=== PATIENT | male | born 1935 ===

== ENCOUNTER 2017-02-13 09:18 | Inpatient (IN) | payer MEDICARE ==
[2017-02-13 09:18] VITALS: BMI 26.4
[2017-02-13] MEDS ORDERED: Albuterol-Ipratrop 3 mg / 0.5 (3 ml) UD ONE ×2 (09:27)
[2017-02-13] MEDS ORDERED: Albuterol-Ipratrop 3 mg / 0.5 (3 ml) UD INH STA (09:36)
[2017-02-13 09:50] LABS: VENOUS BLOOD GAS BASE EXCESS -2.7 mmol/L (0.0-2.0); VENOUS BLOOD GAS PCO2 62 mmHg (40-60); VENOUS BLOOD PH 7.23 (7.32-7.43)
[2017-02-13 10:15] LABS: BASO % 0.2 % (0.0-2.0); EOS % 0.1 % (0.0-4.0); LYMPH # 0.7 K/uL (1.0-4.3); LYMPH % 5.2 % (20.0-40.0); MEAN CORPUSCULAR HEMOGLOBIN 30.7 pg (27.0-31.0); MEAN CORPUSCULAR HGB CONC 31.6 g/dL (33.0-37.0); MEAN PLATELET VOLUME 10.6 fl (7.2-11.7); MONO # 1.1 K/uL (0.0-0.8); MONO % 7.6 % (0.0-10.0); NEUT % 86.9 % (50.0-75.0); PLATELET COUNT 167 K/uL (130-400); RED CELL DISTRIBUTION WIDTH 14.3 % (11.5-14.5)
[2017-02-13 10:24] LABS: BILIRUBIN,TOTAL 0.2 mg/dl (0.2-1.3); CALCIUM 8.2 mg/dL (8.4-10.2); POTASSIUM 4.4 MMOL/L (3.6-5.0); TOTAL PROTEIN 6.7 G/DL (6.3-8.2)
--- NOTE | 2017-02-13 10:27 | ED PDOC ---
HPI: SOB/CHF/COPD Time Seen by Provider: 02/13/17 09:26 Chief Complaint (Nursing): Shortness Of Breath Chief Complaint (Provider): hypoglycemia History Per: Patient History/Exam Limitations: no limitations Onset/Duration Of Symptoms: Mins (prior to arrival) Current Symptoms Are (Timing): Still Present Current Respiratory Medications: See Home Med List Severity: Moderate Associated Symptoms: Other (shortness of breath) Additional Complaint(s): 81 year old male patient with a pertinent medical history of NIDDM, COPD, and asthma presents to the ED with complaints of hypoglycemia. He had an accucheck ( at his skilled nursing) prior to arrival (glucose at 37). He was given glucagon, no change, then D50, his glucose level went up to the 200's. He also has complaints of shortness of breath and is currently being treated with avelox for pneumonia. He denies having any other complaints. PMD: Patient does not recall. Past Medical History Reviewed: Historical Data, Nursing Documentation, Vital Signs Vital Signs: Last Vital Signs Temp 98.7 F 02/13/17 11:31 Pulse 84 02/13/17 14:03 Resp 20 02/13/17 14:03 BP 118/67 02/13/17 14:03 Pulse Ox 98 02/13/17 14:03 - Medical History PMH: Asthma, COPD, CVA, Diabetes, Gall Bladder Disease, HTN, Hypercholesterolemia Denies: HIV, Chronic Kidney Disease - Surgical History Surgical History: Appendectomy, CABG, Cholecystectomy - Family History Family History: States: Unknown Family Hx - Immunization History Hx Tetanus Toxoid Vaccination: No Hx Influenza Vaccination: Yes Hx Pneumococcal Vaccination: No - Home Medications Home Medications: Ambulatory Orders Medication Instructions Recorded Clopidogrel [Plavix] 75 mg PO DAILY 06/07/15 Insulin Glargine, Recombina 25 unit SC HS 01/16/16 [Lantus] Aspirin [Ecotrin] 81 mg PO DAILY 01/17/16 Fluticasone/Salmeterol 100/50 1 puff IH Q12H 01/17/16 [Advair Diskus 100/50] Metoprolol Tartrate [Lopressor] 100 mg PO DAILY 01/17/16 Pravastatin Sodium [Pravachol] 80 mg PO HS 01/17/16 Lisinopril [Zestril] 10 mg PO DAILY tab 01/27/17 Nateglinide [Starlix] 120 mg PO TIDAC tab 01/27/17 amLODIPine [Norvasc] 5 mg PO DAILY tab 01/27/17 Albuterol/Ipratropium [Duoneb 3 3 ml NEB Q6 PRN 02/13/17 mg/0.5 mg (3 ml) UD] Enoxaparin [Lovenox] 40 mg SC DAILY 02/13/17 Moxifloxacin IV 400mg/250ml NS 400 mg IVPB DAILY 02/13/17 [Avelox IV 400mg/250ml NS] - Allergies Allergies/Adverse Reactions: Allergies Allergy/AdvReac Type Severity Reaction Status Date / Time No Known Allergies Allergy Verified 02/13/17 09:28 Curb-65 Severity Score - CURB-65 Severity Score Confusion: No Bun >19mg/dl (>7mmol/L): Yes Respiratory Rate greater than/equal to 30: No Systolic BP <90 or Diastolic BP less than/equal 60mmHg: No Age >64: Yes Curb-65 Score: 2 Percentage 30-day mortality: 6.8% Review of Systems ROS Statement: Except As Marked, All Systems Reviewed And Found Negative Respiratory: Positive for: Shortness of Breath Physical Exam - Reviewed Nursing Documentation Reviewed: Yes Vital Signs Reviewed: Yes - Physical Exam Appears: Positive for: Well, Non-toxic, In Acute Distress (mild respiratory distress) Head Exam: Positive for: ATRAUMATIC, NORMOCEPHALIC Skin: Positive for: Normal Color Eye Exam: Positive for: Normal appearance Cardiovascular/Chest: Positive for: Murmur Respiratory: Positive for: Wheezing (bilaterally), Respiratory Distress (mild) Neurologic/Psych: Positive for: Alert, Oriented (3x) - Laboratory Results Result Diagrams: 02/13/17 09:50 02/13/17 09:50 - ECG Interpretation Of ECG: SR @ 82, PVC. O2 Sat by Pulse Oximetry: 96 (RA) Pulse Ox Interpretation: Normal - Radiology X-Ray: Interpreted by Pa X-Ray Interpretation: Infiltrates (RLL) Nebulizer Treatments/Peak Flow - Duonebs Number of Bronchodilator Doses given?: 1 - Pre/Post Peak Flow Pre Treatment Peak Flow: 1 Post treatment Peak Flow: 1 - Steroid Treatment Steroid: IV (solumedrol 125mg) Medical Decision Making Medical Decision Makin:26 initial impression: 81 year old male with COPD, NIDDM, and asthma has hypoglacemia and shortness of breath. Differential diagnoses include but are not limited to pneumonia, hypoglycemia, and COPD exacerbation. Initial plan: * XRay chest portable * VBG * CMP * udip * CBC with differential * PTT coag * prothrombin time * duoneb 3ml INH * solumedrol 125mg IVP * bood culture * urine culture * accucheck * peak flow peak post treatment * urinalysis * reevaluation Pt ate meal tray. Scribe Attestation: Documented by Camryn Rowley, acting as a scribe for Xin Flores MD. Provider Scribe Attestation: All medical record entries made by the Scribe were at my direction and personally dictated by me. I have reviewed the chart and agree that the record accurately reflects my personal performance of the history, physical exam, medical decision making, and the department course for this patient. I have also personally directed, reviewed, and agree with the discharge instructions and disposition. Disposition - Clinical Impression Clinical Impression: Pneumonia, Hypoglycemia - Patient ED Disposition Is Patient to be Admitted: Yes - Disposition Disposition Time: 12:34 Condition: STABLE - Pt Status Changed To: Hospital Disposition Of: Inpatient - Admit Certification Admit to Inpatient:: After my assessment, the patient will require hospitalization for at least two midnights. This is because of the severity of symptoms shown, intensity of services needed, and/or the medical risk in this patient being treated as an outpatient. - POA Present On Arrival: Poor Glycemic Control
[2017-02-13 10:30] LABS: WHITE BLOOD COUNT 13.8 K/uL (4.8-10.8)
[2017-02-13 10:36] LABS: PARTIAL THROMBOPLASTIN TIME 29.4 SECONDS (23.3-32.5)
[2017-02-13 10:49] LABS: RBC URINE < 1 /hpf (0-3); URINE BACTERIA RARE (<OCC); URINE BILIRUBIN NEGATIVE (NEGATIVE); URINE BLOOD NEGATIVE (NEGATIVE); URINE COLOR YELLOW (YELLOW); URINE GLUCOSE (UA) 150 mg/dL (Normal); URINE KETONE NEGATIVE (NEGATIVE); URINE LEUKOCYTE ESTERASE NEG Leu/uL (Negative); URINE PROTEIN >=500 mg/dL (NEGATIVE); URINE UROBILINOGEN 0.2-1.0 mg/dL (0.2-1.0); WBC URINE 1 /hpf (0-5)
[2017-02-13 11:33] LABS: NEUTROPHIL 86 % (42-75); TOTAL CELLS COUNTED 100
[2017-02-13 11:34] LABS: LARGE PLATELETS PRESENT
[2017-02-13] MEDS ORDERED: Azithromycin 500 MG in Sodium Chloride 0.9% 250 ML IV STA (12:33)
[2017-02-13] MEDS ORDERED: cefTRIAXone (Rocephin) 1 gm Inj ONE (12:35)
--- NOTE | 2017-02-13 13:21 | RAD ---
HISTORY: SOB COMPARISON: 01/24/2017 FINDINGS: LUNGS: Small right lower lobe infiltrate. PLEURA: No significant pleural effusion identified, no pneumothorax apparent. CARDIOVASCULAR: Normal. OSSEOUS STRUCTURES: No significant abnormalities. VISUALIZED UPPER ABDOMEN: Normal. OTHER FINDINGS: None. IMPRESSION: Small right lower lobe infiltrate.
[2017-02-13] MEDS ORDERED: Albuterol-Ipratrop 3 mg / 0.5 (3 ml) UD INH PRN (16:53)
[2017-02-13] MEDS: Insulin Lispro (humaLOG) 100 Units/ml Inj SC SCH ×2 (18:33→21:45)
[2017-02-13] MEDS: Insulin Detemir 100 Units/ml Inj SC SCH (21:44)
[2017-02-13] MEDS: Fluticasone-Salmeterol 100-50mcg Diskus IH SCH (23:05)
--- NOTE | 2017-02-14 00:17 | CP.PCM.HP ---
History of Present Illness - History of Present Illness History of Present Illness: CC: SOB History of Present Illness: 81 year old male patient with a pertinent medical history of NIDDM, COPD, and asthma presents to the ED with complaints of Hypoglycemia. He had an accu-check (at his senior care) prior to arrival (glucose at 37). He was given Glucagon, no change, then D50, his glucose level went up to the 200's. He also has complaints of shortness of breath and is currently being treated with Avelox for pneumonia. He denies having any other complaints. Present on Admission - Present on Admission Any Indicators Present on Admission: Yes History of DVT/PE: No History of Uncontrolled Diabetes: Yes Urinary Catheter: No Decubitus Ulcer Present: No Review of Systems - Review of Systems All systems: reviewed and no additional remarkable complaints except Past Patient History - Infectious Disease Hx of Infectious Diseases: None - Past Medical History & Family History Past Medical History?: Yes Past Family History: Reviewed and not pertinent - Past Social History Smoking Status: Former Smoker Alcohol: None Drugs: Denies - CARDIAC Hx Hypercholesterolemia: Yes Hx Hypertension: Yes - PULMONARY Hx Asthma: Yes Hx Chronic Obstructive Pulmonary Disease (COPD): Yes - NEUROLOGICAL Hx Transient Ischemic Attacks (TIA): Yes - HEENT Hx HEENT Problems: Yes Hx Glaucoma: Yes (HAD CORRECTIVE SX) - RENAL Hx Chronic Kidney Disease: No - ENDOCRINE/METABOLIC Hx Endocrine Disorders: Yes Hx Diabetes Mellitus Type 2: Yes - HEMATOLOGICAL/ONCOLOGICAL Hx Human Immunodeficiency Virus (HIV): No - INTEGUMENTARY Hx Dermatological Problems: No - MUSCULOSKELETAL/RHEUMATOLOGICAL Hx Musculoskeletal Disorders: Yes Hx Falls: No - GASTROINTESTINAL Hx Gall Bladder Disease: Yes - GENITOURINARY/GYNECOLOGICAL Hx Genitourinary Disorders: No - PSYCHIATRIC Hx Psychophysiologic Disorder: No Hx Substance Use: No - SURGICAL HISTORY Hx Appendectomy: Yes Hx Cholecystectomy: Yes Hx Coronary Artery Bypass Graft: Yes Hx Joint Replacement: Yes - ANESTHESIA Hx Anesthesia: Yes Hx Anesthesia Reactions: No Hx Malignant Hyperthermia: No Meds Allergies/Adverse Reactions: Allergies Allergy/AdvReac Type Severity Reaction Status Date / Time No Known Allergies Allergy Verified 02/13/17 09:28 Physical Exam - Constitutional Appears: Well - Head Exam Head Exam: ATRAUMATIC, NORMAL INSPECTION, NORMOCEPHALIC - Eye Exam Eye Exam: EOMI, Normal appearance, PERRL Pupil Exam: NORMAL ACCOMODATION, PERRL - ENT Exam ENT Exam: Mucous Membranes Moist, Normal Exam - Neck Exam Neck exam: Positive for: Normal Inspection - Respiratory Exam Respiratory Exam: Clear to Auscultation Bilateral, NORMAL BREATHING PATTERN - Cardiovascular Exam Cardiovascular Exam: REGULAR RHYTHM - GI/Abdominal Exam GI & Abdominal Exam: Normal Bowel Sounds, Soft. absent: Tenderness - Rectal Exam Rectal Exam: NORMAL INSPECTION - Exam Exam: Circumcision, NORMAL INSPECTION External exam: NORMAL EXTERNAL EXAM Speculum exam: NORMAL SPECULUM EXAM Bimanual exam: NORMAL BIMANUAL EXAM - Extremities Exam Extremities exam: Positive for: normal inspection - Back Exam Back exam: NORMAL INSPECTION - Neurological Exam Neurological exam: Alert, CN II-XII Intact, Normal Gait, Oriented x3, Reflexes Normal - Psychiatric Exam Psychiatric exam: Normal Affect, Normal Mood - Skin Skin Exam: Dry, Intact, Normal Color, Warm Results - Vital Signs Recent Vital Signs: Last Vital Signs Temp 97.3 F L 02/13/17 15:50 Pulse 80 02/13/17 21:00 Resp 20 02/13/17 15:50 BP 145/75 02/13/17 15:50 Pulse Ox 93 L 02/13/17 15:50 - Labs Result Diagrams: 02/17/17 06:35 02/17/17 06:35 - Imaging and Cardiology Chest x-ray Status: Report reviewed by me Additional comment: Right Sided Pneumonia IVF IV Rocephin and IV Zithromax Blood Culture and Sen Sputum GS and C/S ID Consult Assessment & Plan (1) CAD (coronary artery disease) Status: Acute Priority: High (2) Pneumonia Assessment and Plan: Right Sided PNA IVF IV Rocephin/Zithromax Blood and sputum Cultures Tylenol prn ID Consult Status: Acute Priority: High (3) Hypoglycemia Assessment and Plan: IVF with D5NS Adjust DM Medication Monitor ACcucheck Status: Acute Priority: High (4) Diabetes 1.5, managed as type 2 Status: Acute
[2017-02-14] MEDS: Fluticasone-Salmeterol 100-50mcg Diskus IH SCH ×2 (05:00→16:33)
[2017-02-14] MEDS: Insulin Lispro (humaLOG) 100 Units/ml Inj SC SCH ×4 (06:52→21:42)
[2017-02-14] MEDS: Azithromycin 500 MG in Sodium Chloride 0.9% 250 ML IVPB SCH (08:53)
[2017-02-14 08:56] LABS: LYMPH # 0.6 K/uL (1.0-4.3); LYMPH % 9.3 % (20.0-40.0); MEAN CELL VOLUME 95.4 fl (80.0-94.0); MEAN CORPUSCULAR HEMOGLOBIN 31.4 pg (27.0-31.0); MEAN CORPUSCULAR HGB CONC 32.9 g/dL (33.0-37.0); MEAN PLATELET VOLUME 9.8 fl (7.2-11.7); MONO # 0.9 K/uL (0.0-0.8); MONO % 13.2 % (0.0-10.0); NEUT # 5.4 K/uL (1.8-7.0); NEUT % 77.5 % (50.0-75.0); NRBC % 0.1 % (0.0-0.0); RED CELL DISTRIBUTION WIDTH 14.3 % (11.5-14.5); WHITE BLOOD COUNT 6.9 K/uL (4.8-10.8)
[2017-02-14] MEDS ORDERED: cefTRIAXone (Rocephin) 2 gm Inj IVPB SCH (09:00)
[2017-02-14] MEDS ORDERED: Enoxaparin 40 mg Syringe SC SCH (09:00)
[2017-02-14 09:10] LABS: CALCIUM 8.9 mg/dL (8.4-10.2); POTASSIUM 5.3 MMOL/L (3.6-5.0)
[2017-02-14] MEDS ORDERED: Sod Polystyrene Sulf 15 gm/60 ml Oral Susp PO ONE (11:30)
[2017-02-14] MEDS ORDERED: Sodium Chloride 0.45% 1,000 ML IV SCH (11:45)
[2017-02-14] MEDS ORDERED: Sodium Chloride 3% for Inhalation 4 ML VIAL.NEB IH PRN (15:44)
--- NOTE | 2017-02-14 15:44 | CP.PCM.CON ---
History of Present Illness - History of Present Illness History of Present Illness: 81 year old male patient with a pertinent medical history of NIDDM, COPD, and asthma presents to the ED with complaints of hypoglycemia. He had an accucheck ( at his custodial) prior to arrival (glucose at 37). He was given glucagon, no change, then D50, his glucose level went up to the 200's. He also has complaints of shortness of breath and is currently being treated with avelox for pneumonia. He denies having any other complaints. - Medical History PMH: Asthma, COPD, CVA, Diabetes, Gall Bladder Disease, HTN, Hypercholesterolemia Denies: HIV, Chronic Kidney Disease Review of Systems - Constitutional Constitutional: As Per HPI - EENT Eyes: absent: As Per HPI, Blind Spots, Blurred Vision, Change in Vision, Decreased Night Vision, Diplopia, Discharge, Dry Eye, Exophthalmos, Floaters, Irritation, Itchy Eyes, Loss of Peripheral Vision, Pain, Photophobia, Requires Corrective Lenses, Sees Flashes, Spots in Vision, Tunnel Vision, Other Visual Disturbances, Loss of Vision, Other Ears: absent: As Per HPI, Decreased Hearing, Ear Discharge, Ear Pain, Tinnitus, Abnormal Hearing, Disequilibrium, Dizziness, Other Nose/Mouth/Throat: absent: As Per HPI, Epistaxis, Nasal Congestion, Nasal Discharge, Nasal Obstruction, Nasal Trauma, Nose Pain, Post Nasal Drip, Sinus Pain, Sinus Pressure, Bleeding Gums, Change in Voice, Dental Pain, Dry Mouth, Dysphagia, Halitosis, Hoarsness, Lip Swelling, Mouth Lesions, Mouth Pain, Odynophagia, Sore Throat, Throat Swelling, Tongue Swelling, Facial Pain, Neck Pain, Neck Mass, Other - Cardiovascular Cardiovascular: absent: As Per HPI, Acrocyanosis, Chest Pain, Chest Pain at Rest , Chest Pain with Activity, Claudication, Diaphoresis, Dyspnea, Dyspnea on Exertion, Edema, Irregular Heart Rhythm, Pain Radiating to Arm/Neck/Jaw, Leg Edema, Leg Ulcers, Lightheadedness, Orthopnea, Palpitations, Paroxysmal Nocturnal Dyspnea, Pedal Edema, Radiating Pain, Rapid Heart Rate, Slow Heart Rate, Syncope, Other - Respiratory Respiratory: absent: As Per HPI, Cough, Dyspnea, Hemoptysis, Dyspnea on Exertion , Wheezing, Snoring, Stridor, Pain on Inspiration, Chest Congestion, Excessive Mucous Production, Change in Mucous Color, Pain with Coughing, Other - Gastrointestinal Gastrointestinal: absent: As Per HPI, Abdominal Pain, Belching, Bloating, Change in Bowel Habits, Change in Stool Character, Coffee Ground Emesis, Constipation, Cramping, Diarrhea, Dyspepsia, Dysphagia, Early Satiety, Excessive Flatus, Fecal Incontinence, Heartburn, Hematemesis, Hematochezia, Loose Stools, Melena, Nausea, Odynophagia, Temesmus, Vomiting, Other - Genitourinary Genitourinary: absent: As Per HPI, Change in Urinary Stream, Difficulty Urinating, Dysuria, Flank Pain, Hematuria, Pyuria, Nocturia, Urinary Incontinence, Urinary Frequency, Urinary Hesitance, Urinary Urgency, Voiding Freq/Small Amts, Freq UTI, Hx Renal/Bladder Calculi, Hx /Renal Surgery, Bladder Distension, Other - Musculoskeletal Musculoskeletal: absent: As Per HPI, Abnormal Gait, Arthralgias, Atrophy, Back Pain, Deformity, Joint Swelling, Limited Range of Motion, Loss of Height, Muscle Cramps, Muscle Weakness, Myalgias, Neck Pain, Numbness, Radiating Pain into Limb, Stiffness, Tingling, Other - Integumentary Integumentary: absent: As Per HPI, Acne, Alopecia, Bleeding Lesions, Change in Hair, Change in Nails, Change in Pigmentation, Changing Lesions, Dry Skin, Erythema, Furuncle, Hirsutism, Lesions, New Lesions, Non-Healing Lesions, Photosensitivity, Pruritus, Rash, Skin Pain, Skin Ulcer, Sores, Striae, Swelling , Unusual Bruising, Wounds, Jaundice, Other - Neurological Neurological: absent: As Per HPI, Abnormal Gait, Abnormal Hearing, Abnormal Movements, Abnormal Speech, Behavioral Changes, Burning Sensations, Confusion, Convulsions, Disequilibrium, Dizziness, Numbness, Focal Weakness, Frequent Falls , Headaches, Lack of Coordination, Loss of Vision, Memory Loss, Paresthesias, Radicular Pain, Restless Legs, Sensory Deficit, Syncope, Tingling, Tremor, Vertigo, Weakness, Other Visual Disturbances, Other - Psychiatric Psychiatric: absent: As Per HPI, Abnormal Sleep Pattern, Anhedonia, Anxiety, Auditory Hallucinations, Behavioral Changes, Change in Appetite, Change in Libido, Confusion, Depression, Difficulty Concentrating, Hallucinations, Homicidal Ideation, Hopelessness, Irritability, Memory Loss, Mood Swings, Panic Attacks, Paranoia, Suicidal Ideation, Visual Hallucinations, Tactile Hallucinations, Other - Endocrine Endocrine: absent: As Per HPI, Change in Body Appearance, Change in Libido, Cold Intolorance, Deepening of Voice, Excessive Sweating, Fatigue, Flushing, Heat Intolorance, Increase in Ring/Shoe/Hat Size, Palpitations, Polydipsia, Polyphagia, Polyuria, Other - Hematologic/Lymphatic Hematologic: absent: As Per HPI, Easy Bleeding, Easy Bruising, Lymphadenopathy, Other Past Patient History - Infectious Disease Hx of Infectious Diseases: None - Past Medical History & Family History Past Medical History?: Yes - Past Social History Smoking Status: Former Smoker - CARDIAC Hx Hypercholesterolemia: Yes Hx Hypertension: Yes - PULMONARY Hx Asthma: Yes Hx Chronic Obstructive Pulmonary Disease (COPD): Yes - NEUROLOGICAL Hx Transient Ischemic Attacks (TIA): Yes - HEENT Hx HEENT Problems: Yes Hx Glaucoma: Yes (HAD CORRECTIVE SX) - RENAL Hx Chronic Kidney Disease: No - ENDOCRINE/METABOLIC Hx Endocrine Disorders: Yes Hx Diabetes Mellitus Type 2: Yes - HEMATOLOGICAL/ONCOLOGICAL Hx Human Immunodeficiency Virus (HIV): No - INTEGUMENTARY Hx Dermatological Problems: No - MUSCULOSKELETAL/RHEUMATOLOGICAL Hx Musculoskeletal Disorders: Yes Hx Falls: No - GASTROINTESTINAL Hx Gall Bladder Disease: Yes - GENITOURINARY/GYNECOLOGICAL Hx Genitourinary Disorders: No - PSYCHIATRIC Hx Psychophysiologic Disorder: No Hx Substance Use: No - SURGICAL HISTORY Hx Appendectomy: Yes Hx Cholecystectomy: Yes Hx Coronary Artery Bypass Graft: Yes Hx Joint Replacement: Yes - ANESTHESIA Hx Anesthesia: Yes Hx Anesthesia Reactions: No Hx Malignant Hyperthermia: No Meds Allergies/Adverse Reactions: Allergies Allergy/AdvReac Type Severity Reaction Status Date / Time No Known Allergies Allergy Verified 02/13/17 09:28 - Medications Medications: Current Medications Albuterol/Ipratropium (Duoneb 3 Mg/0.5 Mg (3 Ml) Ud) 3 ml INH Q6 PRN PRN Reason: Shortness of Breath Amlodipine Besylate (Norvasc) 5 mg PO DAILY [facility] Last Admin: 02/14/17 08:51 Dose: 5 mg Aspirin (Ecotrin) 81 mg PO DAILY [facility] Last Admin: 02/14/17 08:50 Dose: 81 mg Atorvastatin Calcium (Lipitor) 20 mg PO HS [facility] Last Admin: 02/13/17 21:46 Dose: 20 mg Clopidogrel Bisulfate (Plavix) 75 mg PO DAILY [facility] Last Admin: 02/14/17 08:51 Dose: 75 mg Heparin Sodium (Porcine) (Heparin) 5,000 units SC Q8 [facility] PRN Reason: Protocol Last Admin: 02/14/17 08:53 Dose: 5,000 units Azithromycin 500 mg/ Sodium (Chloride) 250 mls @ 250 mls/hr IVPB DAILY [facility] Last Admin: 02/14/17 08:53 Dose: 250 mls/hr Sodium Chloride (Sodium Chloride 0.45%) 1,000 mls @ 100 mls/hr IV .Q10H [facility] Stop: 02/15/17 11:46 Last Admin: 02/14/17 11:49 Dose: 100 mls/hr Insulin Detemir (Levemir) 20 units SC HS [facility] Last Admin: 02/13/17 21:44 Dose: 20 unit Insulin Human Lispro (Humalog) 0 units SC ACHS [facility] PRN Reason: Protocol Last Admin: 02/14/17 11:55 Dose: Not Given Lisinopril (Zestril) 10 mg PO DAILY [facility] Last Admin: 02/14/17 08:51 Dose: 10 mg Metoprolol Tartrate (Lopressor) 100 mg PO DAILY [facility] Last Admin: 02/14/17 08:50 Dose: 100 mg Fluticasone/Salmeterol (Advair Diskus 100/50) 1 puff IH Q12H [facility] Last Admin: 02/14/17 05:00 Dose: Not Given Physical Exam - Constitutional Appears: Non-toxic, Cachectic, Chronically Ill - Head Exam Head Exam: ATRAUMATIC, NORMAL INSPECTION, NORMOCEPHALIC - Eye Exam Eye Exam: PERRL. absent: Scleral icterus - ENT Exam ENT Exam: Mucous Membranes Dry, Normal External Ear Exam, Normal Oropharynx - Neck Exam Neck exam: Negative for: Lymphadenopathy, Thyromegaly - Respiratory Exam Respiratory Exam: Decreased Breath Sounds, Rhonchi - Cardiovascular Exam Cardiovascular Exam: REGULAR RHYTHM, +S1, +S2 - GI/Abdominal Exam GI & Abdominal Exam: Diminished Bowel Sounds, Soft. absent: Tenderness - Rectal Exam Rectal Exam: Deferred - Exam Exam: NORMAL INSPECTION - Extremities Exam Extremities exam: Negative for: pedal edema - Back Exam Back exam: absent: CVA tenderness (L), CVA tenderness (R) - Neurological Exam Neurological exam: Alert, CN II-XII Intact, Oriented x3, Reflexes Normal - Psychiatric Exam Psychiatric exam: Normal Mood - Skin Skin Exam: Dry Results - Vital Signs Recent Vital Signs: Last Vital Signs Temp 97.4 F L 02/14/17 15:31 Pulse 62 02/14/17 15:31 Resp 20 02/14/17 15:31 BP 147/76 02/14/17 15:31 Pulse Ox 99 02/14/17 15:31 - Labs Result Diagrams: 02/14/17 06:20 02/14/17 06:20 Labs: Laboratory Results - last 24 hr 02/14/17 06:20 WBC 6.9 RBC 3.88 L Hgb 12.2 Hct 37.0 MCV 95.4 H MCH 31.4 H MCHC 32.9 L RDW 14.3 Plt Count 174 MPV 9.8 Neut % (Auto) 77.5 H Lymph % (Auto) 9.3 L Sully % (Auto) 13.2 H Eos % (Auto) 0.0 Baso % (Auto) 0.0 Neut # 5.4 Lymph # 0.6 L Sully # 0.9 H Eos # 0.0 Baso # 0.0 Sodium 144 Potassium 5.3 H Chloride 106 Carbon Dioxide 22 Anion Gap 21 H BUN 57 H Creatinine 2.2 H Est GFR ( Amer) 35 Est GFR (Non-Af Amer) 29 Random Glucose 72 L Calcium 8.9 Assessment & Plan (1) Altered mental status Status: Acute Priority: High (2) CAD (coronary artery disease) Status: Acute Priority: High (3) Hypoglycemia Status: Acute Priority: High (4) Pneumonia Status: Acute Priority: High (5) Chronic systolic dysfunction of left ventricle Status: Acute (6) Dehydration Status: Acute (7) Sepsis Status: Acute (8) Atelectasis Status: Acute - Assessment and Plan (Free Text) Assessment: await cultures cont iv rx
[2017-02-14] MEDS: Insulin Detemir 100 Units/ml Inj SC SCH (21:40)
--- NOTE | 2017-02-14 22:49 | CP.PCM.PN ---
Subjective - Date & Time of Evaluation Date of Evaluation: 02/14/17 Time of Evaluation: 17:55 Objective - Vital Signs/Intake and Output Vital Signs (last 24 hours): Temp Pulse Resp BP Pulse Ox 97.8 F 65 18 125/72 97 02/14/17 17:00 02/14/17 20:53 02/14/17 17:00 02/14/17 17:00 02/14/17 17:00 - Medications Medications: Current Medications Albuterol/Ipratropium (Duoneb 3 Mg/0.5 Mg (3 Ml) Ud) 3 ml INH Q6 PRN PRN Reason: Shortness of Breath Amlodipine Besylate (Norvasc) 5 mg PO DAILY [facility] Last Admin: 02/14/17 08:51 Dose: 5 mg Aspirin (Ecotrin) 81 mg PO DAILY [facility] Last Admin: 02/14/17 08:50 Dose: 81 mg Atorvastatin Calcium (Lipitor) 20 mg PO HS [facility] Last Admin: 02/14/17 21:40 Dose: 20 mg Clopidogrel Bisulfate (Plavix) 75 mg PO DAILY [facility] Last Admin: 02/14/17 08:51 Dose: 75 mg Heparin Sodium (Porcine) (Heparin) 5,000 units SC Q8 [facility] PRN Reason: Protocol Last Admin: 02/14/17 16:34 Dose: 5,000 units Azithromycin 500 mg/ Sodium (Chloride) 250 mls @ 250 mls/hr IVPB DAILY [facility] Last Admin: 02/14/17 08:53 Dose: 250 mls/hr Insulin Detemir (Levemir) 20 units SC HS [facility] Last Admin: 02/14/17 21:40 Dose: 20 unit Insulin Human Lispro (Humalog) 0 units SC ACHS [facility] PRN Reason: Protocol Last Admin: 02/14/17 21:42 Dose: Not Given Lisinopril (Zestril) 10 mg PO DAILY [facility] Last Admin: 02/14/17 08:51 Dose: 10 mg Metoprolol Tartrate (Lopressor) 100 mg PO DAILY [facility] Last Admin: 02/14/17 08:50 Dose: 100 mg Fluticasone/Salmeterol (Advair Diskus 100/50) 1 puff IH Q12H [facility] Last Admin: 02/14/17 16:33 Dose: 1 puff - Labs Labs: 02/14/17 06:20 02/14/17 06:20 PT 10.9 SECONDS (9.6-11.2) 02/13/17 09:50 INR 1.05 (0.92-1.08) 02/13/17 09:50 APTT 29.4 SECONDS (23.3-32.5) 02/13/17 09:50 Assessment and Plan (1) CAD (coronary artery disease) Status: Acute (2) Pneumonia Status: Acute (3) Hypoglycemia Status: Acute (4) Diabetes 1.5, managed as type 2 Status: Acute
[2017-02-15] MEDS: Fluticasone-Salmeterol 100-50mcg Diskus IH SCH ×2 (05:04→17:24)
[2017-02-15] MEDS: Insulin Lispro (humaLOG) 100 Units/ml Inj SC SCH ×4 (08:20→21:30)
[2017-02-15] MEDS: Azithromycin 500 MG in Sodium Chloride 0.9% 250 ML IVPB SCH (09:16)
--- NOTE | 2017-02-15 10:55 | CP.PCM.PN ---
Subjective - Date & Time of Evaluation Date of Evaluation: 02/15/17 Time of Evaluation: 08:00 - Subjective Subjective: less fever less cough less sob Objective - Vital Signs/Intake and Output Vital Signs (last 24 hours): Temp Pulse Resp BP Pulse Ox 97.5 F L 67 20 166/84 H 99 02/15/17 05:23 02/15/17 09:09 02/15/17 05:23 02/15/17 09:09 02/15/17 05:23 - Medications Medications: Current Medications Albuterol/Ipratropium (Duoneb 3 Mg/0.5 Mg (3 Ml) Ud) 3 ml INH Q6 PRN PRN Reason: Shortness of Breath Amlodipine Besylate (Norvasc) 5 mg PO DAILY [facility] Last Admin: 02/15/17 09:09 Dose: 5 mg Aspirin (Ecotrin) 81 mg PO DAILY [facility] Last Admin: 02/15/17 09:09 Dose: 81 mg Atorvastatin Calcium (Lipitor) 20 mg PO HS [facility] Last Admin: 02/14/17 21:40 Dose: 20 mg Clopidogrel Bisulfate (Plavix) 75 mg PO DAILY [facility] Last Admin: 02/15/17 09:10 Dose: 75 mg Heparin Sodium (Porcine) (Heparin) 5,000 units SC Q8 [facility] PRN Reason: Protocol Last Admin: 02/15/17 09:10 Dose: 5,000 units Azithromycin 500 mg/ Sodium (Chloride) 250 mls @ 250 mls/hr IVPB DAILY [facility] Last Admin: 02/15/17 09:16 Dose: 250 mls/hr Insulin Detemir (Levemir) 20 units SC HS [facility] Last Admin: 02/14/17 21:40 Dose: 20 unit Insulin Human Lispro (Humalog) 0 units SC ACHS [facility] PRN Reason: Protocol Last Admin: 02/15/17 08:20 Dose: Not Given Lisinopril (Zestril) 10 mg PO DAILY [facility] Last Admin: 02/15/17 09:08 Dose: 10 mg Metoprolol Tartrate (Lopressor) 100 mg PO DAILY [facility] Last Admin: 02/15/17 09:09 Dose: 100 mg Fluticasone/Salmeterol (Advair Diskus 100/50) 1 puff IH Q12H [facility] Last Admin: 02/15/17 05:04 Dose: 1 puff - Labs Labs: 02/14/17 06:20 02/14/17 06:20 PT 10.9 SECONDS (9.6-11.2) 02/13/17 09:50 INR 1.05 (0.92-1.08) 02/13/17 09:50 APTT 29.4 SECONDS (23.3-32.5) 02/13/17 09:50 - Constitutional Appears: Non-toxic, Cachectic, Chronically Ill - Head Exam Head Exam: ATRAUMATIC, NORMAL INSPECTION, NORMOCEPHALIC - Eye Exam Eye Exam: PERRL. absent: Scleral icterus - ENT Exam ENT Exam: Mucous Membranes Dry, Normal External Ear Exam - Neck Exam Neck Exam: absent: Lymphadenopathy - Respiratory Exam Respiratory Exam: Decreased Breath Sounds, Clear to Ausculation Bilateral - Cardiovascular Exam Cardiovascular Exam: REGULAR RHYTHM, +S1, +S2 - GI/Abdominal Exam GI & Abdominal Exam: Distended, Soft. absent: Tenderness - Rectal Exam Rectal Exam: Deferred - Exam Exam: NORMAL INSPECTION - Extremities Exam Extremities Exam: absent: Calf Tenderness, Pedal Edema - Back Exam Back Exam: absent: CVA tenderness (L), CVA tenderness (R) - Neurological Exam Neurological Exam: Alert, Awake, Oriented x3 Neuro motor strength exam: Left Upper Extremity: 3, Right Upper Extremity: 3, Left Lower Extremity: 3, Right Lower Extremity: 3 - Psychiatric Exam Psychiatric exam: Normal Mood - Skin Skin Exam: Intact Assessment and Plan (1) Altered mental status Status: Acute (2) CAD (coronary artery disease) Status: Acute (3) Hypoglycemia Status: Acute (4) Pneumonia Status: Acute (5) Chronic systolic dysfunction of left ventricle Status: Acute (6) Dehydration Status: Acute (7) Sepsis Status: Acute (8) Atelectasis Status: Acute
[2017-02-15 13:41] LABS: CALCIUM 8.2 mg/dL (8.4-10.2); POTASSIUM 4.2 MMOL/L (3.6-5.0)
[2017-02-15] MEDS: Insulin Detemir 100 Units/ml Inj SC SCH (21:31)
--- NOTE | 2017-02-16 00:32 | CP.PCM.PN ---
Subjective - Date & Time of Evaluation Date of Evaluation: 02/15/17 Time of Evaluation: 16:10 Objective - Vital Signs/Intake and Output Vital Signs (last 24 hours): Temp Pulse Resp BP Pulse Ox 97.4 F L 66 20 135/71 97 02/16/17 00:07 02/16/17 00:07 02/16/17 00:07 02/16/17 00:07 02/16/17 00:07 - Medications Medications: Current Medications Albuterol/Ipratropium (Duoneb 3 Mg/0.5 Mg (3 Ml) Ud) 3 ml INH Q6 PRN PRN Reason: Shortness of Breath Amlodipine Besylate (Norvasc) 5 mg PO DAILY [facility] Last Admin: 02/15/17 09:09 Dose: 5 mg Aspirin (Ecotrin) 81 mg PO DAILY [facility] Last Admin: 02/15/17 09:09 Dose: 81 mg Atorvastatin Calcium (Lipitor) 20 mg PO HS [facility] Last Admin: 02/15/17 21:32 Dose: 20 mg Clopidogrel Bisulfate (Plavix) 75 mg PO DAILY [facility] Last Admin: 02/15/17 09:10 Dose: 75 mg Heparin Sodium (Porcine) (Heparin) 5,000 units SC Q8 [facility] PRN Reason: Protocol Last Admin: 02/15/17 17:23 Dose: 5,000 units Azithromycin 500 mg/ Sodium (Chloride) 250 mls @ 250 mls/hr IVPB DAILY [facility] Last Admin: 02/15/17 09:16 Dose: 250 mls/hr Insulin Detemir (Levemir) 20 units SC HS [facility] Last Admin: 02/15/17 21:31 Dose: 20 unit Insulin Human Lispro (Humalog) 0 units SC ACHS [facility] PRN Reason: Protocol Last Admin: 02/15/17 21:30 Dose: Not Given Lisinopril (Zestril) 10 mg PO DAILY [facility] Last Admin: 02/15/17 09:08 Dose: 10 mg Metoprolol Tartrate (Lopressor) 100 mg PO DAILY [facility] Last Admin: 02/15/17 09:09 Dose: 100 mg Fluticasone/Salmeterol (Advair Diskus 100/50) 1 puff IH Q12H [facility] Last Admin: 02/15/17 17:24 Dose: 1 puff - Labs Labs: 02/14/17 06:20 02/15/17 13:05 PT 10.9 SECONDS (9.6-11.2) 02/13/17 09:50 INR 1.05 (0.92-1.08) 02/13/17 09:50 APTT 29.4 SECONDS (23.3-32.5) 02/13/17 09:50 Assessment and Plan (1) CAD (coronary artery disease) Status: Acute (2) Pneumonia Status: Acute (3) Hypoglycemia Status: Acute (4) Diabetes 1.5, managed as type 2 Status: Acute
[2017-02-16] MEDS: Fluticasone-Salmeterol 100-50mcg Diskus IH SCH ×2 (04:53→16:28)
[2017-02-16] MEDS: Azithromycin 500 MG in Sodium Chloride 0.9% 250 ML IVPB SCH (09:15)
[2017-02-16] MEDS: Insulin Lispro (humaLOG) 100 Units/ml Inj SC SCH ×4 (09:18→22:50)
[2017-02-16] MEDS ORDERED: cefTRIAXone (Rocephin) 2 gm Inj IVPB SCH (11:45)
--- NOTE | 2017-02-16 12:15 | CP.PCM.PN ---
Subjective - Date & Time of Evaluation Date of Evaluation: 02/16/17 Time of Evaluation: 12:30 Objective - Vital Signs/Intake and Output Vital Signs (last 24 hours): Temp Pulse Resp BP Pulse Ox 97.4 F L 70 20 162/87 H 97 02/16/17 08:17 02/16/17 09:17 02/16/17 08:17 02/16/17 09:17 02/16/17 08:17 - Medications Medications: Current Medications Albuterol/Ipratropium (Duoneb 3 Mg/0.5 Mg (3 Ml) Ud) 3 ml INH Q6 PRN PRN Reason: Shortness of Breath Amlodipine Besylate (Norvasc) 5 mg PO DAILY [facility] Last Admin: 02/16/17 09:17 Dose: 5 mg Aspirin (Ecotrin) 81 mg PO DAILY [facility] Last Admin: 02/16/17 09:17 Dose: 81 mg Atorvastatin Calcium (Lipitor) 20 mg PO HS [facility] Last Admin: 02/15/17 21:32 Dose: 20 mg Clopidogrel Bisulfate (Plavix) 75 mg PO DAILY [facility] Last Admin: 02/16/17 09:16 Dose: 75 mg Heparin Sodium (Porcine) (Heparin) 5,000 units SC Q8 [facility] PRN Reason: Protocol Last Admin: 02/16/17 09:17 Dose: 5,000 units Azithromycin 500 mg/ Sodium (Chloride) 250 mls @ 250 mls/hr IVPB DAILY [facility] Last Admin: 02/16/17 09:15 Dose: 250 mls/hr Ceftriaxone Sodium 1 gm/ (Sodium Chloride) 100 mls @ 100 mls/hr IVPB DAILY [facility] Insulin Detemir (Levemir) 20 units SC HS [facility] Last Admin: 02/15/17 21:31 Dose: 20 unit Insulin Human Lispro (Humalog) 0 units SC ACHS [facility] PRN Reason: Protocol Last Admin: 02/16/17 11:19 Dose: 4 unit Lisinopril (Zestril) 10 mg PO DAILY [facility] Last Admin: 02/16/17 09:16 Dose: 10 mg Metoprolol Tartrate (Lopressor) 100 mg PO DAILY [facility] Last Admin: 02/16/17 09:17 Dose: 100 mg Fluticasone/Salmeterol (Advair Diskus 100/50) 1 puff IH Q12H [facility] Last Admin: 02/16/17 04:53 Dose: 1 puff - Labs Labs: 02/14/17 06:20 02/15/17 13:05 PT 10.9 SECONDS (9.6-11.2) 02/13/17 09:50 INR 1.05 (0.92-1.08) 02/13/17 09:50 APTT 29.4 SECONDS (23.3-32.5) 02/13/17 09:50 Assessment and Plan (1) CAD (coronary artery disease) Status: Acute (2) Pneumonia Status: Acute (3) Hypoglycemia Status: Acute (4) Diabetes 1.5, managed as type 2 Status: Acute
[2017-02-16] MEDS ORDERED: Dextrose 50% SYRINGE Inj (50 ml) ONE (14:02)
[2017-02-16] MEDS ORDERED: Dextrose 50% SYRINGE Inj (50 ml) IVP ONE (14:21)
--- NOTE | 2017-02-16 15:31 | CP.PCM.CON ---
History of Present Illness - History of Present Illness History of Present Illness: 81 year old male w/ PMH CKD III, HTN, DM that presented to the hospital w/ episodes of hypoglycemia two days ago. He was also found to have pneumonia and was started on abx. His cr was found to be about 2.2. His cr has been at this level for the past several months and progressively getting worth over the past several months. He has a known history of diabetes. I was unable to get any further answers from the pt as when I came in he was very altered and had alerted RN and was found to be significantly hypoglycemic. ROS: unable to obtain as pt is altered . all: nkda sochx: unable to obtain pt altered famhx: unable to obtain as pt altered Past Patient History - Infectious Disease Hx of Infectious Diseases: None - Past Medical History & Family History Past Medical History?: Yes - Past Social History Smoking Status: Former Smoker - CARDIAC Hx Hypercholesterolemia: Yes Hx Hypertension: Yes - PULMONARY Hx Asthma: Yes Hx Chronic Obstructive Pulmonary Disease (COPD): Yes - NEUROLOGICAL Hx Transient Ischemic Attacks (TIA): Yes - HEENT Hx HEENT Problems: Yes Hx Glaucoma: Yes (HAD CORRECTIVE SX) - RENAL Hx Chronic Kidney Disease: Yes - ENDOCRINE/METABOLIC Hx Endocrine Disorders: Yes Hx Diabetes Mellitus Type 2: Yes - HEMATOLOGICAL/ONCOLOGICAL Hx Human Immunodeficiency Virus (HIV): No - INTEGUMENTARY Hx Dermatological Problems: No - MUSCULOSKELETAL/RHEUMATOLOGICAL Hx Musculoskeletal Disorders: Yes Hx Falls: No - GASTROINTESTINAL Hx Gall Bladder Disease: Yes - GENITOURINARY/GYNECOLOGICAL Hx Genitourinary Disorders: No - PSYCHIATRIC Hx Psychophysiologic Disorder: No Hx Substance Use: No - SURGICAL HISTORY Hx Appendectomy: Yes Hx Cholecystectomy: Yes Hx Coronary Artery Bypass Graft: Yes Hx Joint Replacement: Yes - ANESTHESIA Hx Anesthesia: Yes Hx Anesthesia Reactions: No Hx Malignant Hyperthermia: No Meds Allergies/Adverse Reactions: Allergies Allergy/AdvReac Type Severity Reaction Status Date / Time No Known Allergies Allergy Verified 02/13/17 09:28 - Medications Medications: Current Medications Albuterol/Ipratropium (Duoneb 3 Mg/0.5 Mg (3 Ml) Ud) 3 ml INH Q6 PRN PRN Reason: Shortness of Breath Amlodipine Besylate (Norvasc) 5 mg PO DAILY [facility] Last Admin: 02/16/17 09:17 Dose: 5 mg Aspirin (Ecotrin) 81 mg PO DAILY [facility] Last Admin: 02/16/17 09:17 Dose: 81 mg Atorvastatin Calcium (Lipitor) 20 mg PO HS [facility] Last Admin: 02/15/17 21:32 Dose: 20 mg Clopidogrel Bisulfate (Plavix) 75 mg PO DAILY [facility] Last Admin: 02/16/17 09:16 Dose: 75 mg Heparin Sodium (Porcine) (Heparin) 5,000 units SC Q8 [facility] PRN Reason: Protocol Last Admin: 02/16/17 09:17 Dose: 5,000 units Azithromycin 500 mg/ Sodium (Chloride) 250 mls @ 250 mls/hr IVPB DAILY [facility] Last Admin: 02/16/17 09:15 Dose: 250 mls/hr Ceftriaxone Sodium 1 gm/ (Sodium Chloride) 100 mls @ 100 mls/hr IVPB DAILY [facility] Last Admin: 02/16/17 14:32 Dose: 100 mls/hr Dextrose/Sodium Chloride (Dextrose 5%-0.45% Ns 500 Ml) 1,000 mls @ 100 mls/hr IV .Q10H [facility] Insulin Detemir (Levemir) 20 units SC [facility] Last Admin: 02/15/17 21:31 Dose: 20 unit Insulin Human Lispro (Humalog) 0 units SC ACHS [facility] PRN Reason: Protocol Last Admin: 02/16/17 11:19 Dose: 4 unit Lisinopril (Zestril) 10 mg PO DAILY [facility] Last Admin: 02/16/17 09:16 Dose: 10 mg Metoprolol Tartrate (Lopressor) 100 mg PO DAILY [facility] Last Admin: 02/16/17 09:17 Dose: 100 mg Fluticasone/Salmeterol (Advair Diskus 100/50) 1 puff IH Q12H [facility] Last Admin: 02/16/17 04:53 Dose: 1 puff Physical Exam - Constitutional Appears: No Acute Distress, Unkempt - Head Exam Head Exam: ATRAUMATIC - Eye Exam Eye Exam: Normal appearance - ENT Exam Additional comments: poor dentition - Neck Exam Neck exam: Positive for: Normal Inspection - Respiratory Exam Respiratory Exam: NORMAL BREATHING PATTERN - Cardiovascular Exam Cardiovascular Exam: +S1, +S2 - GI/Abdominal Exam GI & Abdominal Exam: Normal Bowel Sounds - Extremities Exam Additional comments: no edema - Neurological Exam Additional comments: altered - Psychiatric Exam Additional comments: alterd - Skin Skin Exam: Normal Color Results - Vital Signs Recent Vital Signs: Last Vital Signs Temp 98.3 F 02/16/17 12:39 Pulse 81 02/16/17 12:39 Resp 21 02/16/17 12:39 BP 146/75 02/16/17 12:39 Pulse Ox 97 02/16/17 12:39 - Labs Result Diagrams: 02/14/17 06:20 02/15/17 13:05 Labs: Laboratory Results - last 24 hr 02/15/17 02/15/17 02/15/17 06:08 11:37 15:54 POC Glucose (mg/dL) 87 149 H 163 H 02/15/17 21:04 POC Glucose (mg/dL) 259 H Assessment & Plan - Assessment and Plan (Free Text) Assessment: CKD III, DM II w/ nephropathy, HTN, Hypoglycemia, Anemia, Plan: CKD: it appears to be from his admission earlier this month. It appears that he has macroalbuminuria will check UPCR to quantify. Currently will remain on MATT- I for diabetic nephropathy. If cr bumps further would recommend discontinuing. BP well controlled today Hypoglycemia: being addressed by primary team. Will screen for hyperphos and secondary hyperparathyroidism.
[2017-02-16 15:39] LABS: HEMATOCRIT 37.2 % (35.0-51.0); MEAN CELL VOLUME 95.8 fl (80.0-94.0); MEAN CORPUSCULAR HEMOGLOBIN 31.3 pg (27.0-31.0); MEAN CORPUSCULAR HGB CONC 32.6 g/dL (33.0-37.0); RED CELL DISTRIBUTION WIDTH 14.3 % (11.5-14.5); WHITE BLOOD COUNT 8.6 K/uL (4.8-10.8)
[2017-02-16 15:50] LABS: CALCIUM 8.2 mg/dL (8.4-10.2); POTASSIUM 4.5 MMOL/L (3.6-5.0)
[2017-02-16] MEDS ORDERED: Insulin Detemir 100 Units/ml Inj SC SCH (22:00)
[2017-02-17 00:04] LABS: RBC URINE < 1 /hpf (0-3); URINE BACTERIA RARE (<OCC); URINE BILIRUBIN NEGATIVE (NEGATIVE); URINE BLOOD NEGATIVE (NEGATIVE); URINE COLOR STRAW (YELLOW); URINE GLUCOSE (UA) >=500 mg/dL (Normal); URINE KETONE NEGATIVE (NEGATIVE); URINE LEUKOCYTE ESTERASE NEG Leu/uL (Negative); URINE PROTEIN 100 mg/dL (NEGATIVE); URINE UROBILINOGEN 0.2-1.0 mg/dL (0.2-1.0); WBC URINE < 1 /hpf (0-5)
[2017-02-17] MEDS: Fluticasone-Salmeterol 100-50mcg Diskus IH SCH ×2 (04:20→17:22)
[2017-02-17] MEDS: Insulin Lispro (humaLOG) 100 Units/ml Inj SC SCH ×4 (06:37→22:51)
[2017-02-17 07:52] LABS: HEMATOCRIT 33.4 % (35.0-51.0); MEAN CELL VOLUME 94.3 fl (80.0-94.0); MEAN CORPUSCULAR HEMOGLOBIN 31.7 pg (27.0-31.0); MEAN CORPUSCULAR HGB CONC 33.6 g/dL (33.0-37.0); WHITE BLOOD COUNT 6.8 K/uL (4.8-10.8)
[2017-02-17 07:58] LABS: POTASSIUM 4.5 MMOL/L (3.6-5.0)
[2017-02-17] MEDS: Azithromycin 500 MG in Sodium Chloride 0.9% 250 ML IVPB SCH (10:32)
[2017-02-17] MEDS ORDERED: guaiFENesin 100 mg/5 ml Syrup UD PO PRN (10:59)
--- NOTE | 2017-02-17 11:31 | RAD ---
HISTORY: pneumonia COMPARISON: Comparison is made to the previous study dated 02/13/2017 TECHNIQUE: Chest PA and lateral FINDINGS: LUNGS: Interval improvement in the right lower lobe since the previous exam. Otherwise no change PLEURA: No significant pleural effusion identified. No pneumothorax apparent. CARDIOVASCULAR: Normal. OSSEOUS STRUCTURES: No significant abnormalities. VISUALIZED UPPER ABDOMEN: Normal. OTHER FINDINGS: None. IMPRESSION: Interval improvement in the right lower lobe since the previous study. Otherwise no change.
--- NOTE | 2017-02-17 13:40 | CP.PCM.PN ---
Subjective - Date & Time of Evaluation Date of Evaluation: 02/17/17 Time of Evaluation: 10:00 - Subjective Subjective: poor appettite rx in progress Objective - Vital Signs/Intake and Output Vital Signs (last 24 hours): Temp Pulse Resp BP Pulse Ox 98.2 F 68 20 135/69 96 02/17/17 12:26 02/17/17 12:26 02/17/17 12:26 02/17/17 12:26 02/17/17 12:26 Intake and Output: 02/17/17 02/17/17 06:59 18:59 Intake Total 1320 Output Total 800 Balance 520 - Medications Medications: Current Medications Albuterol/Ipratropium (Duoneb 3 Mg/0.5 Mg (3 Ml) Ud) 3 ml INH Q6 PRN PRN Reason: Shortness of Breath Amlodipine Besylate (Norvasc) 5 mg PO DAILY [facility] Last Admin: 02/17/17 09:00 Dose: 5 mg Aspirin (Ecotrin) 81 mg PO DAILY [facility] Last Admin: 02/17/17 08:59 Dose: 81 mg Atorvastatin Calcium (Lipitor) 20 mg PO HS [facility] Last Admin: 02/16/17 22:52 Dose: 20 mg Clopidogrel Bisulfate (Plavix) 75 mg PO DAILY [facility] Last Admin: 02/17/17 08:59 Dose: 75 mg Guaifenesin (Robitussin) 100 mg PO Q6 PRN PRN Reason: Cough Heparin Sodium (Porcine) (Heparin) 5,000 units SC Q8 [facility] PRN Reason: Protocol Last Admin: 02/17/17 08:59 Dose: 5,000 units Azithromycin 500 mg/ Sodium (Chloride) 250 mls @ 250 mls/hr IVPB DAILY [facility] Last Admin: 02/17/17 10:32 Dose: 250 mls/hr Ceftriaxone Sodium 1 gm/ (Sodium Chloride) 100 mls @ 100 mls/hr IVPB DAILY [facility] Last Admin: 02/17/17 09:01 Dose: 100 mls/hr Dextrose/Sodium Chloride (Dextrose 5%-0.45% Ns 500 Ml) 1,000 mls @ 100 mls/hr IV .Q10H [facility] Last Admin: 02/17/17 00:14 Dose: 100 mls/hr Insulin Detemir (Levemir) 13 units SC HS [facility] Insulin Human Lispro (Humalog) 0 units SC ACHS [facility] PRN Reason: Protocol Last Admin: 02/17/17 13:34 Dose: 1 unit Lisinopril (Zestril) 10 mg PO DAILY [facility] Last Admin: 02/17/17 09:03 Dose: 10 mg Metoprolol Tartrate (Lopressor) 100 mg PO DAILY [facility] Last Admin: 02/17/17 09:00 Dose: 100 mg Fluticasone/Salmeterol (Advair Diskus 100/50) 1 puff IH Q12H [facility] Last Admin: 02/17/17 04:20 Dose: 1 puff - Labs Labs: 02/17/17 06:35 02/17/17 06:35 PT 10.9 SECONDS (9.6-11.2) 02/13/17 09:50 INR 1.05 (0.92-1.08) 02/13/17 09:50 APTT 29.4 SECONDS (23.3-32.5) 02/13/17 09:50 - Constitutional Appears: Non-toxic, Cachectic, Chronically Ill - Head Exam Head Exam: NORMOCEPHALIC - Eye Exam Eye Exam: PERRL. absent: Scleral icterus Pupil Exam: absent: NORMAL ACCOMODATION - ENT Exam ENT Exam: Mucous Membranes Dry, Normal External Ear Exam - Neck Exam Neck Exam: absent: Lymphadenopathy - Respiratory Exam Respiratory Exam: Decreased Breath Sounds, Clear to Ausculation Bilateral - Cardiovascular Exam Cardiovascular Exam: REGULAR RHYTHM, +S1, +S2 - GI/Abdominal Exam GI & Abdominal Exam: Distended, Soft - Rectal Exam Rectal Exam: Deferred - Exam Exam: NORMAL INSPECTION Assessment and Plan (1) Altered mental status Status: Acute (2) CAD (coronary artery disease) Status: Acute (3) Hypoglycemia Status: Acute (4) Pneumonia Status: Acute (5) Chronic systolic dysfunction of left ventricle Status: Acute (6) Dehydration Status: Acute (7) Sepsis Status: Acute (8) Atelectasis Status: Acute
--- NOTE | 2017-02-17 16:59 | CP.PCM.PN ---
Subjective - Date & Time of Evaluation Date of Evaluation: 02/17/17 Time of Evaluation: 04:30 - Subjective Subjective: Appears comfortable supine Objective - Vital Signs/Intake and Output Vital Signs (last 24 hours): Temp Pulse Resp BP Pulse Ox 98 F 70 20 132/76 98 02/17/17 16:00 02/17/17 16:00 02/17/17 16:00 02/17/17 16:00 02/17/17 16:00 Intake and Output: 02/17/17 02/17/17 06:59 18:59 Intake Total 1320 Output Total 800 Balance 520 - Medications Medications: Current Medications Albuterol/Ipratropium (Duoneb 3 Mg/0.5 Mg (3 Ml) Ud) 3 ml INH Q6 PRN PRN Reason: Shortness of Breath Amlodipine Besylate (Norvasc) 5 mg PO DAILY [facility] Last Admin: 02/17/17 09:00 Dose: 5 mg Aspirin (Ecotrin) 81 mg PO DAILY [facility] Last Admin: 02/17/17 08:59 Dose: 81 mg Atorvastatin Calcium (Lipitor) 20 mg PO HS [facility] Last Admin: 02/16/17 22:52 Dose: 20 mg Clopidogrel Bisulfate (Plavix) 75 mg PO DAILY [facility] Last Admin: 02/17/17 08:59 Dose: 75 mg Guaifenesin (Robitussin) 100 mg PO Q6 PRN PRN Reason: Cough Heparin Sodium (Porcine) (Heparin) 5,000 units SC Q8 [facility] PRN Reason: Protocol Last Admin: 02/17/17 08:59 Dose: 5,000 units Azithromycin 500 mg/ Sodium (Chloride) 250 mls @ 250 mls/hr IVPB DAILY [facility] Last Admin: 02/17/17 10:32 Dose: 250 mls/hr Ceftriaxone Sodium 1 gm/ (Sodium Chloride) 100 mls @ 100 mls/hr IVPB DAILY [facility] Last Admin: 02/17/17 09:01 Dose: 100 mls/hr Dextrose/Sodium Chloride (Dextrose 5%-0.45% Ns 500 Ml) 1,000 mls @ 100 mls/hr IV .Q10H [facility] Last Admin: 02/17/17 00:14 Dose: 100 mls/hr Insulin Detemir (Levemir) 13 units SC HS [facility] Insulin Human Lispro (Humalog) 0 units SC ACHS [facility] PRN Reason: Protocol Last Admin: 02/17/17 13:34 Dose: 1 unit Lisinopril (Zestril) 10 mg PO DAILY [facility] Last Admin: 02/17/17 09:03 Dose: 10 mg Metoprolol Tartrate (Lopressor) 100 mg PO DAILY [facility] Last Admin: 02/17/17 09:00 Dose: 100 mg Fluticasone/Salmeterol (Advair Diskus 100/50) 1 puff IH Q12H [facility] Last Admin: 02/17/17 04:20 Dose: 1 puff - Labs Labs: 02/17/17 06:35 02/17/17 06:35 PT 10.9 SECONDS (9.6-11.2) 02/13/17 09:50 INR 1.05 (0.92-1.08) 02/13/17 09:50 APTT 29.4 SECONDS (23.3-32.5) 02/13/17 09:50 - Respiratory Exam Additional comments: Lungs clear - Cardiovascular Exam Cardiovascular Exam: REGULAR RHYTHM - Extremities Exam Additional comments: No edema Assessment and Plan - Assessment and Plan (Free Text) Assessment: MESERET. renal function is improving Pneumonia DM Hx/o CHF Plan: Continue to monitor renal function Avoid nephrotoxic meds
[2017-02-17] MEDS: Insulin Detemir 100 Units/ml Inj SC SCH (22:55)
[2017-02-18] MEDS: Fluticasone-Salmeterol 100-50mcg Diskus IH SCH ×2 (05:00→17:21)
[2017-02-18] MEDS: Insulin Lispro (humaLOG) 100 Units/ml Inj SC SCH ×4 (08:45→23:07)
[2017-02-18] MEDS: Azithromycin 500 MG in Sodium Chloride 0.9% 250 ML IVPB SCH (10:07)
--- NOTE | 2017-02-18 17:04 | CP.PCM.PN ---
Subjective - Date & Time of Evaluation Date of Evaluation: 02/18/17 Time of Evaluation: 13:20 - Subjective Subjective: Comfortable supine Objective - Vital Signs/Intake and Output Vital Signs (last 24 hours): Temp Pulse Resp BP Pulse Ox 97.9 F 58 L 20 133/68 96 02/18/17 16:38 02/18/17 16:38 02/18/17 16:38 02/18/17 16:38 02/18/17 16:38 - Medications Medications: Current Medications Albuterol/Ipratropium (Duoneb 3 Mg/0.5 Mg (3 Ml) Ud) 3 ml INH Q6 PRN PRN Reason: Shortness of Breath Amlodipine Besylate (Norvasc) 5 mg PO DAILY [facility] Last Admin: 02/18/17 10:05 Dose: 5 mg Aspirin (Ecotrin) 81 mg PO DAILY [facility] Last Admin: 02/18/17 10:04 Dose: 81 mg Atorvastatin Calcium (Lipitor) 20 mg PO HS [facility] Last Admin: 02/17/17 22:51 Dose: 20 mg Clopidogrel Bisulfate (Plavix) 75 mg PO DAILY [facility] Last Admin: 02/18/17 10:05 Dose: 75 mg Guaifenesin (Robitussin) 100 mg PO Q6 PRN PRN Reason: Cough Heparin Sodium (Porcine) (Heparin) 5,000 units SC Q8 [facility] PRN Reason: Protocol Last Admin: 02/18/17 10:04 Dose: 5,000 units Azithromycin 500 mg/ Sodium (Chloride) 250 mls @ 250 mls/hr IVPB DAILY [facility] Last Admin: 02/18/17 10:07 Dose: 250 mls/hr Ceftriaxone Sodium 1 gm/ (Sodium Chloride) 100 mls @ 100 mls/hr IVPB DAILY [facility] Last Admin: 02/18/17 10:06 Dose: 100 mls/hr Dextrose/Sodium Chloride (Dextrose 5%-0.45% Ns 500 Ml) 1,000 mls @ 40 mls/hr IV .Q24H [facility] Last Admin: 02/18/17 13:24 Dose: 40 mls/hr Insulin Detemir (Levemir) 13 units SC HS [facility] Last Admin: 02/17/17 22:55 Dose: Not Given Insulin Human Lispro (Humalog) 0 units SC ACHS [facility] PRN Reason: Protocol Last Admin: 02/18/17 13:20 Dose: 2 unit Lisinopril (Zestril) 10 mg PO DAILY [facility] Last Admin: 02/18/17 10:04 Dose: 10 mg Metoprolol Tartrate (Lopressor) 100 mg PO DAILY [facility] Last Admin: 02/18/17 10:05 Dose: 100 mg Fluticasone/Salmeterol (Advair Diskus 100/50) 1 puff IH Q12H [facility] Last Admin: 02/18/17 05:00 Dose: Not Given - Labs Labs: 02/17/17 06:35 02/17/17 06:35 PT 10.9 SECONDS (9.6-11.2) 02/13/17 09:50 INR 1.05 (0.92-1.08) 02/13/17 09:50 APTT 29.4 SECONDS (23.3-32.5) 02/13/17 09:50 - Respiratory Exam Additional comments: Lungs cllear - Cardiovascular Exam Cardiovascular Exam: REGULAR RHYTHM - Extremities Exam Additional comments: No edema Assessment and Plan - Assessment and Plan (Free Text) Assessment: MESERET. renal function continues to improve CHF HTN DM Plan: Continue to monitor renal function & current Mx
--- NOTE | 2017-02-18 22:11 | CP.PCM.PN ---
Subjective - Date & Time of Evaluation Date of Evaluation: 02/18/17 Time of Evaluation: 14:00 - Subjective Subjective: Seen and examined at the bed side. Blood sugar has been stable after cutting down the Levemir to 13 Unist HS, and accu-check with low coverage. He has been on IVF D5 0.45NS@100cc/hr. IVF was d/c this am. He is eating better and asking when he is going back to the rehab. Denies fever or chills. Objective - Vital Signs/Intake and Output Vital Signs (last 24 hours): Temp Pulse Resp BP Pulse Ox 98.5 F 73 20 113/59 L 95 02/18/17 20:41 02/18/17 20:41 02/18/17 20:41 02/18/17 20:41 02/18/17 20:41 - Medications Medications: Current Medications Albuterol/Ipratropium (Duoneb 3 Mg/0.5 Mg (3 Ml) Ud) 3 ml INH Q6 PRN PRN Reason: Shortness of Breath Amlodipine Besylate (Norvasc) 5 mg PO DAILY [facility] Last Admin: 02/18/17 10:05 Dose: 5 mg Aspirin (Ecotrin) 81 mg PO DAILY [facility] Last Admin: 02/18/17 10:04 Dose: 81 mg Atorvastatin Calcium (Lipitor) 20 mg PO HS [facility] Last Admin: 02/17/17 22:51 Dose: 20 mg Clopidogrel Bisulfate (Plavix) 75 mg PO DAILY [facility] Last Admin: 02/18/17 10:05 Dose: 75 mg Guaifenesin (Robitussin) 100 mg PO Q6 PRN PRN Reason: Cough Heparin Sodium (Porcine) (Heparin) 5,000 units SC Q8 [facility] PRN Reason: Protocol Last Admin: 02/18/17 17:21 Dose: 5,000 units Azithromycin 500 mg/ Sodium (Chloride) 250 mls @ 250 mls/hr IVPB DAILY [facility] Last Admin: 02/18/17 10:07 Dose: 250 mls/hr Ceftriaxone Sodium 1 gm/ (Sodium Chloride) 100 mls @ 100 mls/hr IVPB DAILY [facility] Last Admin: 02/18/17 10:06 Dose: 100 mls/hr Dextrose/Sodium Chloride (Dextrose 5%-0.45% Ns 500 Ml) 1,000 mls @ 40 mls/hr IV .Q24H [facility] Last Admin: 02/18/17 13:24 Dose: 40 mls/hr Insulin Detemir (Levemir) 13 units SC HS [facility] Last Admin: 02/17/17 22:55 Dose: Not Given Insulin Human Lispro (Humalog) 0 units SC [facility] PRN Reason: Protocol Last Admin: 02/18/17 17:21 Dose: 3 unit Lisinopril (Zestril) 10 mg PO DAILY [facility] Last Admin: 02/18/17 10:04 Dose: 10 mg Metoprolol Tartrate (Lopressor) 100 mg PO DAILY [facility] Last Admin: 02/18/17 10:05 Dose: 100 mg Fluticasone/Salmeterol (Advair Diskus 100/50) 1 puff IH Q12H [facility] Last Admin: 02/18/17 17:21 Dose: 1 puff - Labs Labs: 02/17/17 06:35 02/17/17 06:35 PT 10.9 SECONDS (9.6-11.2) 02/13/17 09:50 INR 1.05 (0.92-1.08) 02/13/17 09:50 APTT 29.4 SECONDS (23.3-32.5) 02/13/17 09:50 - Constitutional Appears: Well, No Acute Distress - Head Exam Head Exam: ATRAUMATIC, NORMAL INSPECTION, NORMOCEPHALIC - Eye Exam Eye Exam: EOMI, Normal appearance, PERRL Pupil Exam: NORMAL ACCOMODATION, PERRL - ENT Exam ENT Exam: Mucous Membranes Moist, Normal Exam - Neck Exam Neck Exam: Full ROM, Normal Inspection. absent: Lymphadenopathy - Respiratory Exam Respiratory Exam: Decreased Breath Sounds, NORMAL BREATHING PATTERN. absent: Accessory Muscle Use, Rales, Wheezes - Cardiovascular Exam Cardiovascular Exam: REGULAR RHYTHM, +S1, +S2. absent: Murmur - GI/Abdominal Exam GI & Abdominal Exam: Soft, Normal Bowel Sounds. absent: Tenderness - Extremities Exam Extremities Exam: Full ROM, Normal Capillary Refill, Normal Inspection. absent : Joint Swelling, Pedal Edema - Back Exam Back Exam: NORMAL INSPECTION - Neurological Exam Neurological Exam: Abnormal Gait, Alert, Awake, CN II-XII Intact - Psychiatric Exam Psychiatric exam: Normal Affect, Normal Mood - Skin Skin Exam: Dry, Intact, Normal Color, Warm Assessment and Plan (1) CAD (coronary artery disease) Status: Acute (2) Pneumonia Status: Acute (3) Hypoglycemia Status: Acute (4) Diabetes 1.5, managed as type 2 Status: Acute
[2017-02-18] MEDS: Insulin Detemir 100 Units/ml Inj SC SCH (23:06)
[2017-02-19] MEDS: Fluticasone-Salmeterol 100-50mcg Diskus IH SCH ×2 (06:13→17:33)
[2017-02-19] MEDS: Insulin Lispro (humaLOG) 100 Units/ml Inj SC SCH ×4 (07:07→21:19)
[2017-02-19 07:15] LABS: BASO # 0.1 K/uL (0.0-0.2); BASO % 0.8 % (0.0-2.0); EOS # 0.4 K/uL (0.0-0.7); EOS % 5.1 % (0.0-4.0); HEMATOCRIT 32.1 % (35.0-51.0); LYMPH # 0.9 K/uL (1.0-4.3); LYMPH % 12.6 % (20.0-40.0); MEAN CELL VOLUME 94.3 fl (80.0-94.0); MEAN CORPUSCULAR HEMOGLOBIN 31.3 pg (27.0-31.0); MEAN CORPUSCULAR HGB CONC 33.2 g/dL (33.0-37.0); MEAN PLATELET VOLUME 9.6 fl (7.2-11.7); MONO # 1.1 K/uL (0.0-0.8); MONO % 15.1 % (0.0-10.0); NEUT # 4.8 K/uL (1.8-7.0); NEUT % 66.4 % (50.0-75.0); NRBC % 0.1 % (0.0-0.0); RED CELL DISTRIBUTION WIDTH 13.8 % (11.5-14.5); WHITE BLOOD COUNT 7.2 K/uL (4.8-10.8)
[2017-02-19 07:34] LABS: BILIRUBIN,TOTAL 0.3 mg/dl (0.2-1.3); CALCIUM 8.5 mg/dL (8.4-10.2); TOTAL PROTEIN 5.8 G/DL (6.3-8.2)
[2017-02-19 07:50] LABS: POTASSIUM 5.5 MMOL/L (3.6-5.0)
[2017-02-19] MEDS: Azithromycin 500 MG in Sodium Chloride 0.9% 250 ML IVPB SCH (08:41)
[2017-02-19 09:24] LABS: CREATININE, RANDOM URINE 54 mg/dL (20-370)
[2017-02-19] MEDS ORDERED: Sod Polystyrene Sulf 15 gm/60 ml Oral Susp PO ONE ×2 (09:51→16:57)
--- NOTE | 2017-02-19 16:12 | CP.PCM.PN ---
Subjective - Date & Time of Evaluation Date of Evaluation: 02/19/17 Time of Evaluation: 13:00 - Subjective Subjective: seen and examined no complaints Objective - Vital Signs/Intake and Output Vital Signs (last 24 hours): Temp Pulse Resp BP Pulse Ox 97.9 F 68 18 166/86 H 98 02/19/17 13:00 02/19/17 13:00 02/19/17 13:00 02/19/17 13:00 02/19/17 13:00 - Medications Medications: Current Medications Albuterol/Ipratropium (Duoneb 3 Mg/0.5 Mg (3 Ml) Ud) 3 ml INH Q6 PRN PRN Reason: Shortness of Breath Amlodipine Besylate (Norvasc) 5 mg PO DAILY [facility] Last Admin: 02/19/17 08:38 Dose: 5 mg Aspirin (Ecotrin) 81 mg PO DAILY [facility] Last Admin: 02/19/17 08:37 Dose: 81 mg Atorvastatin Calcium (Lipitor) 20 mg PO HS [facility] Last Admin: 02/18/17 23:06 Dose: 20 mg Clopidogrel Bisulfate (Plavix) 75 mg PO DAILY [facility] Last Admin: 02/19/17 08:38 Dose: 75 mg Guaifenesin (Robitussin) 100 mg PO Q6 PRN PRN Reason: Cough Heparin Sodium (Porcine) (Heparin) 5,000 units SC Q8 [facility] PRN Reason: Protocol Last Admin: 02/19/17 08:30 Dose: 5,000 units Azithromycin 500 mg/ Sodium (Chloride) 250 mls @ 250 mls/hr IVPB DAILY [facility] Last Admin: 02/19/17 08:41 Dose: 250 mls/hr Ceftriaxone Sodium 1 gm/ (Sodium Chloride) 100 mls @ 100 mls/hr IVPB DAILY [facility] Last Admin: 02/19/17 08:39 Dose: 100 mls/hr Dextrose/Sodium Chloride (Dextrose 5%-0.45% Ns 500 Ml) 1,000 mls @ 40 mls/hr IV .Q24H [facility] Last Admin: 02/18/17 13:24 Dose: 40 mls/hr Insulin Detemir (Levemir) 13 units SC HS [facility] Last Admin: 02/18/17 23:06 Dose: 13 units Insulin Human Lispro (Humalog) 0 units SC ACHS [facility] PRN Reason: Protocol Last Admin: 02/19/17 13:56 Dose: 2 unit Lisinopril (Zestril) 10 mg PO DAILY [facility] Last Admin: 02/19/17 08:37 Dose: 10 mg Metoprolol Tartrate (Lopressor) 100 mg PO DAILY [facility] Last Admin: 02/19/17 08:38 Dose: 100 mg Fluticasone/Salmeterol (Advair Diskus 100/50) 1 puff IH Q12H [facility] Last Admin: 02/19/17 06:13 Dose: 1 puff - Labs Labs: 02/19/17 06:05 02/19/17 06:05 PT 10.9 SECONDS (9.6-11.2) 02/13/17 09:50 INR 1.05 (0.92-1.08) 02/13/17 09:50 APTT 29.4 SECONDS (23.3-32.5) 02/13/17 09:50 - Constitutional Appears: Non-toxic - Head Exam Head Exam: ATRAUMATIC - Eye Exam Eye Exam: Normal appearance - ENT Exam ENT Exam: Normal Exam - Neck Exam Neck Exam: Normal Inspection - Respiratory Exam Respiratory Exam: NORMAL BREATHING PATTERN - Cardiovascular Exam Cardiovascular Exam: REGULAR RHYTHM - GI/Abdominal Exam GI & Abdominal Exam: Normal Bowel Sounds - Neurological Exam Neurological Exam: Alert, Oriented x3 - Psychiatric Exam Psychiatric exam: Normal Affect - Skin Skin Exam: Normal Color Assessment and Plan - Assessment and Plan (Free Text) Assessment: CKD III, DM II w/ nephropathy, HTN, Hypoglycemia, Anemia, hyperkalemia CKD: ~3.5 grams of protein, likely diabetic nephropathy. Will cont - anya-i though K was up a bit today. I changed diet to 2 gm k diet in addition to low na diet. Follow k. Will start on calcitriol for secondary hyperpara
[2017-02-19 16:33] LABS: CALCIUM 8.2 mg/dL (8.4-10.2)
[2017-02-19 16:34] LABS: POTASSIUM 5.5 MMOL/L (3.6-5.0)
[2017-02-19] MEDS: Insulin Detemir 100 Units/ml Inj SC SCH (21:22)
--- NOTE | 2017-02-19 23:17 | CP.PCM.PN ---
Subjective - Date & Time of Evaluation Date of Evaluation: 02/19/17 Time of Evaluation: 18:15 Objective - Vital Signs/Intake and Output Vital Signs (last 24 hours): Temp Pulse Resp BP Pulse Ox 97.9 F 79 20 156/69 H 97 02/19/17 19:50 02/19/17 19:50 02/19/17 19:50 02/19/17 19:50 02/19/17 19:50 - Medications Medications: Current Medications Albuterol/Ipratropium (Duoneb 3 Mg/0.5 Mg (3 Ml) Ud) 3 ml INH Q6 PRN PRN Reason: Shortness of Breath Amlodipine Besylate (Norvasc) 5 mg PO DAILY [facility] Last Admin: 02/19/17 08:38 Dose: 5 mg Aspirin (Ecotrin) 81 mg PO DAILY [facility] Last Admin: 02/19/17 08:37 Dose: 81 mg Atorvastatin Calcium (Lipitor) 20 mg PO HS [facility] Last Admin: 02/19/17 21:22 Dose: 20 mg Calcitriol (Rocaltrol) 0.25 mcg PO DAILY [facility] Clopidogrel Bisulfate (Plavix) 75 mg PO DAILY [facility] Last Admin: 02/19/17 08:38 Dose: 75 mg Guaifenesin (Robitussin) 100 mg PO Q6 PRN PRN Reason: Cough Heparin Sodium (Porcine) (Heparin) 5,000 units SC Q8 [facility] PRN Reason: Protocol Last Admin: 02/19/17 17:34 Dose: 5,000 units Azithromycin 500 mg/ Sodium (Chloride) 250 mls @ 250 mls/hr IVPB DAILY [facility] Last Admin: 02/19/17 08:41 Dose: 250 mls/hr Ceftriaxone Sodium 1 gm/ (Sodium Chloride) 100 mls @ 100 mls/hr IVPB DAILY [facility] Last Admin: 02/19/17 08:39 Dose: 100 mls/hr Dextrose/Sodium Chloride (Dextrose 5%-0.45% Ns 500 Ml) 1,000 mls @ 40 mls/hr IV .Q24H [facility] Last Admin: 02/19/17 17:37 Dose: 40 mls/hr Insulin Detemir (Levemir) 13 units SC HS [facility] Last Admin: 02/19/17 21:22 Dose: 13 units Insulin Human Lispro (Humalog) 0 units SC ACHS [facility] PRN Reason: Protocol Last Admin: 02/19/17 21:19 Dose: Not Given Lisinopril (Zestril) 10 mg PO DAILY [facility] Last Admin: 02/19/17 08:37 Dose: 10 mg Metoprolol Tartrate (Lopressor) 100 mg PO DAILY [facility] Last Admin: 02/19/17 08:38 Dose: 100 mg Fluticasone/Salmeterol (Advair Diskus 100/50) 1 puff IH Q12H [facility] Last Admin: 02/19/17 17:33 Dose: 1 puff - Labs Labs: 02/19/17 06:05 02/19/17 16:05 PT 10.9 SECONDS (9.6-11.2) 02/13/17 09:50 INR 1.05 (0.92-1.08) 02/13/17 09:50 APTT 29.4 SECONDS (23.3-32.5) 02/13/17 09:50 Assessment and Plan (1) CAD (coronary artery disease) Status: Acute (2) Pneumonia Status: Acute (3) Hypoglycemia Status: Acute (4) Diabetes 1.5, managed as type 2 Status: Acute
[2017-02-20] MEDS: Fluticasone-Salmeterol 100-50mcg Diskus IH SCH ×2 (04:46→17:56)
[2017-02-20] MEDS: Insulin Lispro (humaLOG) 100 Units/ml Inj SC SCH ×4 (08:00→21:47)
[2017-02-20] MEDS: Azithromycin 500 MG in Sodium Chloride 0.9% 250 ML IVPB SCH (08:50)
--- NOTE | 2017-02-20 12:52 | CP.PCM.PN ---
Subjective - Date & Time of Evaluation Date of Evaluation: 02/20/17 Time of Evaluation: 01:00 - Subjective Subjective: Comfortable in bed Objective - Vital Signs/Intake and Output Vital Signs (last 24 hours): Temp Pulse Resp BP Pulse Ox 97.3 F L 78 18 144/72 98 02/20/17 12:21 02/20/17 12:21 02/20/17 12:21 02/20/17 12:21 02/20/17 12:21 - Medications Medications: Current Medications Albuterol/Ipratropium (Duoneb 3 Mg/0.5 Mg (3 Ml) Ud) 3 ml INH Q6 PRN PRN Reason: Shortness of Breath Amlodipine Besylate (Norvasc) 5 mg PO DAILY [facility] Last Admin: 02/20/17 08:48 Dose: 5 mg Aspirin (Ecotrin) 81 mg PO DAILY [facility] Last Admin: 02/20/17 08:47 Dose: 81 mg Atorvastatin Calcium (Lipitor) 20 mg PO HS [facility] Last Admin: 02/19/17 21:22 Dose: 20 mg Calcitriol (Rocaltrol) 0.25 mcg PO DAILY [facility] Last Admin: 02/20/17 08:47 Dose: 0.25 mcg Clopidogrel Bisulfate (Plavix) 75 mg PO DAILY [facility] Last Admin: 02/20/17 08:49 Dose: 75 mg Guaifenesin (Robitussin) 100 mg PO Q6 PRN PRN Reason: Cough Heparin Sodium (Porcine) (Heparin) 5,000 units SC Q8 [facility] PRN Reason: Protocol Last Admin: 02/20/17 08:44 Dose: 5,000 units Azithromycin 500 mg/ Sodium (Chloride) 250 mls @ 250 mls/hr IVPB DAILY [facility] Last Admin: 02/20/17 08:50 Dose: 250 mls/hr Ceftriaxone Sodium 1 gm/ (Sodium Chloride) 100 mls @ 100 mls/hr IVPB DAILY [facility] Last Admin: 02/20/17 08:49 Dose: 100 mls/hr Dextrose/Sodium Chloride (Dextrose 5%-0.45% Ns 500 Ml) 1,000 mls @ 40 mls/hr IV .Q24H [facility] Last Admin: 02/19/17 17:37 Dose: 40 mls/hr Insulin Detemir (Levemir) 13 units SC [facility] Last Admin: 02/19/17 21:22 Dose: 13 units Insulin Human Lispro (Humalog) 0 units SC ACHS [facility] PRN Reason: Protocol Last Admin: 02/20/17 11:46 Dose: 3 unit Lisinopril (Zestril) 10 mg PO DAILY [facility] Last Admin: 02/20/17 08:47 Dose: 10 mg Metoprolol Tartrate (Lopressor) 100 mg PO DAILY [facility] Last Admin: 02/20/17 08:46 Dose: 100 mg Fluticasone/Salmeterol (Advair Diskus 100/50) 1 puff IH Q12H [facility] Last Admin: 02/20/17 04:46 Dose: 1 puff - Labs Labs: 02/19/17 06:05 02/19/17 16:05 PT 10.9 SECONDS (9.6-11.2) 02/13/17 09:50 INR 1.05 (0.92-1.08) 02/13/17 09:50 APTT 29.4 SECONDS (23.3-32.5) 02/13/17 09:50 - Respiratory Exam Additional comments: Lungs clear - Cardiovascular Exam Cardiovascular Exam: REGULAR RHYTHM - Extremities Exam Additional comments: No edema Assessment and Plan - Assessment and Plan (Free Text) Assessment: CKD 111 renal function is stable Hyperkalemia CHF,CAD DM Plan: Continue to monitor renal function Repeat BMP for hyperkalemia
[2017-02-20 16:06] VITALS: RESP 20
[2017-02-20 16:23] LABS: CALCIUM 8.5 mg/dL (8.4-10.2)
[2017-02-20 16:28] LABS: POTASSIUM 5.7 MMOL/L (3.6-5.0)
[2017-02-20] MEDS ORDERED: Dextrose 50% SYRINGE Inj (50 ml) IVP ONE (16:39)
[2017-02-20] MEDS ORDERED: Insulin Regular 100 units/ml IV STA (16:40)
[2017-02-20] MEDS ORDERED: Sod Polystyrene Sulf 15 gm/60 ml Oral Susp PO ONE (16:42)
[2017-02-20] MEDS ORDERED: Albuterol 0.083% Inhal Sol (2.5 mg/3 mL) UD INH STA (16:43)
--- NOTE | 2017-02-20 20:54 | CP.PCM.PN ---
Subjective - Date & Time of Evaluation Date of Evaluation: 02/20/17 Time of Evaluation: 15:25 Objective - Vital Signs/Intake and Output Vital Signs (last 24 hours): Temp Pulse Resp BP Pulse Ox 98.1 F 65 20 118/82 100 02/20/17 16:06 02/20/17 16:06 02/20/17 16:06 02/20/17 16:06 02/20/17 16:06 - Medications Medications: Current Medications Albuterol/Ipratropium (Duoneb 3 Mg/0.5 Mg (3 Ml) Ud) 3 ml INH Q6 PRN PRN Reason: Shortness of Breath Amlodipine Besylate (Norvasc) 5 mg PO DAILY [facility] Last Admin: 02/20/17 08:48 Dose: 5 mg Aspirin (Ecotrin) 81 mg PO DAILY [facility] Last Admin: 02/20/17 08:47 Dose: 81 mg Atorvastatin Calcium (Lipitor) 20 mg PO HS [facility] Last Admin: 02/19/17 21:22 Dose: 20 mg Calcitriol (Rocaltrol) 0.25 mcg PO DAILY [facility] Last Admin: 02/20/17 08:47 Dose: 0.25 mcg Clopidogrel Bisulfate (Plavix) 75 mg PO DAILY [facility] Last Admin: 02/20/17 08:49 Dose: 75 mg Guaifenesin (Robitussin) 100 mg PO Q6 PRN PRN Reason: Cough Heparin Sodium (Porcine) (Heparin) 5,000 units SC Q8 [facility] PRN Reason: Protocol Last Admin: 02/20/17 17:56 Dose: 5,000 units Azithromycin 500 mg/ Sodium (Chloride) 250 mls @ 250 mls/hr IVPB DAILY [facility] Last Admin: 02/20/17 08:50 Dose: 250 mls/hr Ceftriaxone Sodium 1 gm/ (Sodium Chloride) 100 mls @ 100 mls/hr IVPB DAILY [facility] Last Admin: 02/20/17 08:49 Dose: 100 mls/hr Dextrose/Sodium Chloride (Dextrose 5%-0.45% Ns 500 Ml) 1,000 mls @ 40 mls/hr IV .Q24H [facility] Last Admin: 02/19/17 17:37 Dose: 40 mls/hr Insulin Detemir (Levemir) 13 units SC HS [facility] Last Admin: 02/19/17 21:22 Dose: 13 units Insulin Human Lispro (Humalog) 0 units SC ACHS [facility] PRN Reason: Protocol Last Admin: 02/20/17 17:55 Dose: 2 unit Lisinopril (Zestril) 10 mg PO DAILY [facility] Last Admin: 02/20/17 08:47 Dose: 10 mg Metoprolol Tartrate (Lopressor) 100 mg PO DAILY [facility] Last Admin: 02/20/17 08:46 Dose: 100 mg Fluticasone/Salmeterol (Advair Diskus 100/50) 1 puff IH Q12H [facility] Last Admin: 02/20/17 17:56 Dose: 1 puff - Labs Labs: 02/19/17 06:05 02/20/17 15:30 PT 10.9 SECONDS (9.6-11.2) 02/13/17 09:50 INR 1.05 (0.92-1.08) 02/13/17 09:50 APTT 29.4 SECONDS (23.3-32.5) 02/13/17 09:50 Assessment and Plan (1) CAD (coronary artery disease) Status: Acute (2) Pneumonia Status: Acute (3) Hypoglycemia Status: Acute (4) Diabetes 1.5, managed as type 2 Status: Acute
[2017-02-20] MEDS: Insulin Detemir 100 Units/ml Inj SC SCH (21:52)
[2017-02-21] MEDS: Fluticasone-Salmeterol 100-50mcg Diskus IH SCH (04:49)
[2017-02-21] MEDS: Insulin Lispro (humaLOG) 100 Units/ml Inj SC SCH ×2 (06:42→12:40)
[2017-02-21 08:23] LABS: CALCIUM 8.7 mg/dL (8.4-10.2)
[2017-02-21] MEDS: Azithromycin 500 MG in Sodium Chloride 0.9% 250 ML IVPB SCH (08:49)
[2017-02-21 08:50] VITALS: O2SAT 97
--- NOTE | 2017-02-21 10:50 | CP.PCM.DIS ---
Provider - Provider Date of Admission: 02/13/17 12:34 Attending physician: Keke Edgar MD Time Spent in preparation of Discharge (in minutes): 30 Diagnosis - Discharge Diagnosis (1) CAD (coronary artery disease) Status: Acute Priority: High (2) Pneumonia Status: Acute Priority: High (3) Hypoglycemia Status: Acute Priority: High (4) Diabetes 1.5, managed as type 2 Status: Acute Hospital Course - Lab Results Lab Results: Micro Results 02/13/17 13:00 Blood Blood Culture - Final NO GROWTH AFTER 5 DAYS 02/13/17 13:00 Blood Gram Stain - Final TEST NOT PERFORMED Most Recent Lab Values WBC 7.2 K/uL (4.8-10.8) 02/19/17 06:05 RBC 3.40 Mil/uL (4.40-5.90) L 02/19/17 06:05 Hgb 10.6 g/dL (12.0-18.0) L 02/19/17 06:05 Hct 32.1 % (35.0-51.0) L 02/19/17 06:05 MCV 94.3 fl (80.0-94.0) H 02/19/17 06:05 MCH 31.3 pg (27.0-31.0) H 02/19/17 06:05 MCHC 33.2 g/dL (33.0-37.0) 02/19/17 06:05 RDW 13.8 % (11.5-14.5) 02/19/17 06:05 Plt Count 188 K/uL (130-400) 02/19/17 06:05 MPV 9.6 fl (7.2-11.7) 02/19/17 06:05 Neut % (Auto) 66.4 % (50.0-75.0) 02/19/17 06:05 Lymph % (Auto) 12.6 % (20.0-40.0) L 02/19/17 06:05 [place] % (Auto) 15.1 % (0.0-10.0) H 02/19/17 06:05 Eos % (Auto) 5.1 % (0.0-4.0) H 02/19/17 06:05 Baso % (Auto) 0.8 % (0.0-2.0) 02/19/17 06:05 Neut # 4.8 K/uL (1.8-7.0) 02/19/17 06:05 Lymph # 0.9 K/uL (1.0-4.3) L 02/19/17 06:05 [place] # 1.1 K/uL (0.0-0.8) H 02/19/17 06:05 Eos # 0.4 K/uL (0.0-0.7) 02/19/17 06:05 Baso # 0.1 K/uL (0.0-0.2) 02/19/17 06:05 Neutrophils % (Manual) 86 % (42-75) H 02/13/17 09:50 Band Neutrophils % 1 % (0-2) 02/13/17 09:50 Lymphocytes % (Manual) 5 % (20-50) L 02/13/17 09:50 Monocytes % (Manual) 8 % (0-10) 02/13/17 09:50 Platelet Estimate Normal (NORMAL) 02/13/17 09:50 Large Platelets Present 02/13/17 09:50 RBC Morphology Normal (NORMAL) 02/13/17 09:50 PT 10.9 SECONDS (9.6-11.2) 02/13/17 09:50 INR 1.05 (0.92-1.08) 02/13/17 09:50 APTT 29.4 SECONDS (23.3-32.5) 02/13/17 09:50 pO2 18 mm/Hg (30-55) L 02/13/17 09:40 VBG pH 7.23 (7.32-7.43) L 02/13/17 09:40 VBG pCO2 62 mmHg (40-60) H 02/13/17 09:40 VBG HCO3 21.0 mmol/L 02/13/17 09:40 VBG Total CO2 27.9 mmol/L (22-28) 02/13/17 09:40 VBG O2 Sat (Calc) 30.7 % (40-65) L 02/13/17 09:40 VBG Base Excess -2.7 mmol/L (0.0-2.0) L 02/13/17 09:40 VBG Potassium 4.5 mmol/L (3.6-5.2) 02/13/17 09:40 Sodium 136.0 mmol/L (132-148) 02/13/17 09:40 Chloride 109.0 mmol/L (98-107) H 02/13/17 09:40 Glucose 217 mg/dL (75-110) H 02/13/17 09:40 Lactate 1.9 mmol/L (0.7-2.1) 02/13/17 09:40 FiO2 21.0 % 02/13/17 09:40 Sodium 146 mmol/l (132-148) 02/21/17 06:00 Potassium 5.0 MMOL/L (3.6-5.0) 02/21/17 06:00 Chloride 108 mmol/L (98-107) H 02/21/17 06:00 Carbon Dioxide 28 mmol/L (22-30) 02/21/17 06:00 Anion Gap 15 (10-20) 02/21/17 06:00 BUN 43 mg/dl (9-20) H 02/21/17 06:00 Creatinine 2.2 mg/dL (0.8-1.5) H 02/21/17 06:00 Est GFR ( Amer) 35 02/21/17 06:00 Est GFR (Non-Af Amer) 29 02/21/17 06:00 POC Glucose (mg/dL) 135 mg/dL (65-110) H 02/21/17 04:54 Random Glucose 93 mg/dL (75-110) 02/21/17 06:00 Calcium 8.7 mg/dL (8.4-10.2) 02/21/17 06:00 Phosphorus 4.2 mg/dl (2.5-4.5) 02/16/17 15:00 Total Bilirubin 0.3 mg/dl (0.2-1.3) 02/19/17 06:05 AST 25 U/L (17-59) 02/19/17 06:05 ALT 49 U/L (21-72) 02/19/17 06:05 Alkaline Phosphatase 51 U/L (38-126) 02/19/17 06:05 Total Protein 5.8 G/DL (6.3-8.2) L 02/19/17 06:05 Albumin 2.9 g/dL (3.5-5.0) L 02/19/17 06:05 Globulin 2.9 gm/dL (2.2-3.9) 02/19/17 06:05 Albumin/Globulin Ratio 1.0 (1.0-2.1) 02/19/17 06:05 PTH Intact Whole Molec 249 pg/mL (14-64) H 02/16/17 17:15 Venous Blood Potassium 4.5 mmol/L (3.6-5.2) 02/13/17 09:40 Urine Color Straw (YELLOW) 02/16/17 23:47 Urine Clarity Clear (Clear) 02/16/17 23:47 Urine pH 6.0 (5.0-8.0) 02/16/17 23:47 Ur Specific [place] 1.010 (1.003-1.030) 02/16/17 23:47 Urine Protein 100 mg/dL (NEGATIVE) 02/16/17 23:47 Urine Glucose (UA) >=500 mg/dL (Normal) 02/16/17 23:47 Urine Ketones Negative mg/dL (NEGATIVE) 02/16/17 23:47 Urine Blood Negative (NEGATIVE) 02/16/17 23:47 Urine Nitrate Negative (NEGATIVE) 02/16/17 23:47 Urine Bilirubin Negative (NEGATIVE) 02/16/17 23:47 Urine Urobilinogen 0.2-1.0 mg/dL (0.2-1.0) 02/16/17 23:47 Ur Leukocyte Esterase Neg [place]/uL (Negative) 02/16/17 23:47 Urine RBC (Auto) < 1 /hpf (0-3) 02/16/17 23:47 Urine Microscopic WBC < 1 /hpf (0-5) 02/16/17 23:47 Ur Squamous Epith Cells < 1 /hpf (0-5) 02/16/17 23:47 Urine Bacteria Rare (<OCC) 02/16/17 23:47 Ur Random Creatinine 40.0 mg/dL 02/16/17 23:47 U Random Total Protein 3679 mg/g creat (22-128) H 02/17/17 08:14 Discharge Exam - Head Exam Head Exam: ATRAUMATIC Discharge Plan - Follow Up Plan Condition: FAIR Disposition: HOME/ ROUTINE
[2017-02-21 13:49] VITALS: BP 149/85; PULSE 65; TEMP 97.9
--- NOTE | 2017-02-21 14:15 | CP.PCM.PN ---
Subjective - Date & Time of Evaluation Date of Evaluation: 02/21/17 Time of Evaluation: 02:00 - Subjective Subjective: Comfortab supine Objective - Vital Signs/Intake and Output Vital Signs (last 24 hours): Temp Pulse Resp BP Pulse Ox 97.9 F 65 20 149/85 97 02/21/17 13:07 02/21/17 13:07 02/21/17 13:07 02/21/17 13:07 02/21/17 13:07 Intake and Output: 02/21/17 02/21/17 06:59 18:59 Output Total 200 Balance -200 - Medications Medications: Current Medications Albuterol/Ipratropium (Duoneb 3 Mg/0.5 Mg (3 Ml) Ud) 3 ml INH Q6 PRN PRN Reason: Shortness of Breath Amlodipine Besylate (Norvasc) 5 mg PO DAILY [facility] Last Admin: 02/21/17 08:46 Dose: 5 mg Aspirin (Ecotrin) 81 mg PO DAILY [facility] Last Admin: 02/21/17 12:33 Dose: 81 mg Atorvastatin Calcium (Lipitor) 20 mg PO HS [facility] Last Admin: 02/20/17 21:51 Dose: 20 mg Calcitriol (Rocaltrol) 0.25 mcg PO DAILY [facility] Last Admin: 02/21/17 08:46 Dose: 0.25 mcg Clopidogrel Bisulfate (Plavix) 75 mg PO DAILY [facility] Last Admin: 02/21/17 08:45 Dose: 75 mg Guaifenesin (Robitussin) 100 mg PO Q6 PRN PRN Reason: Cough Last Admin: 02/20/17 21:57 Dose: 100 mg Heparin Sodium (Porcine) (Heparin) 5,000 units SC Q8 [facility] PRN Reason: Protocol Last Admin: 02/21/17 08:47 Dose: 5,000 units Azithromycin 500 mg/ Sodium (Chloride) 250 mls @ 250 mls/hr IVPB DAILY [facility] Last Admin: 02/21/17 08:49 Dose: 250 mls/hr Dextrose/Sodium Chloride (Dextrose 5%-0.45% Ns 500 Ml) 1,000 mls @ 40 mls/hr IV .Q24H [facility] Last Admin: 02/21/17 12:40 Dose: Not Given Insulin Detemir (Levemir) 13 units SC [facility] Last Admin: 02/20/17 21:52 Dose: 13 units Insulin Human Lispro (Humalog) 0 units SC ACHS [facility] PRN Reason: Protocol Last Admin: 02/21/17 12:40 Dose: 1 unit Lisinopril (Zestril) 10 mg PO DAILY [facility] Last Admin: 02/21/17 08:45 Dose: 10 mg Metoprolol Tartrate (Lopressor) 100 mg PO DAILY [facility] Last Admin: 02/21/17 08:46 Dose: 100 mg Fluticasone/Salmeterol (Advair Diskus 100/50) 1 puff IH Q12H [facility] Last Admin: 02/21/17 04:49 Dose: 1 puff - Labs Labs: 02/19/17 06:05 02/21/17 06:00 PT 10.9 SECONDS (9.6-11.2) 02/13/17 09:50 INR 1.05 (0.92-1.08) 02/13/17 09:50 APTT 29.4 SECONDS (23.3-32.5) 02/13/17 09:50 - Respiratory Exam Additional comments: LUngs clear - Cardiovascular Exam Cardiovascular Exam: Irregular Rhythm, REGULAR RHYTHM - Extremities Exam Additional comments: No edema Assessment and Plan - Assessment and Plan (Free Text) Assessment: CKD renal function is stable CAD DM Plan: Renal function is stable Conionue to monitoe
--- NOTE | 2017-02-21 14:28 | CP.PCM.PN ---
Subjective - Date & Time of Evaluation Date of Evaluation: 02/21/17 Time of Evaluation: 06:00 - Subjective Subjective: resting comfortably in NAD vss afebrile weak and bedridden Objective - Vital Signs/Intake and Output Vital Signs (last 24 hours): Temp Pulse Resp BP Pulse Ox 97.9 F 65 20 149/85 97 02/21/17 13:07 02/21/17 13:07 02/21/17 13:07 02/21/17 13:07 02/21/17 13:07 Intake and Output: 02/21/17 02/21/17 06:59 18:59 Output Total 200 Balance -200 - Medications Medications: Current Medications Albuterol/Ipratropium (Duoneb 3 Mg/0.5 Mg (3 Ml) Ud) 3 ml INH Q6 PRN PRN Reason: Shortness of Breath Amlodipine Besylate (Norvasc) 5 mg PO DAILY [facility] Last Admin: 02/21/17 08:46 Dose: 5 mg Aspirin (Ecotrin) 81 mg PO DAILY [facility] Last Admin: 02/21/17 12:33 Dose: 81 mg Atorvastatin Calcium (Lipitor) 20 mg PO HS [facility] Last Admin: 02/20/17 21:51 Dose: 20 mg Calcitriol (Rocaltrol) 0.25 mcg PO DAILY [facility] Last Admin: 02/21/17 08:46 Dose: 0.25 mcg Clopidogrel Bisulfate (Plavix) 75 mg PO DAILY [facility] Last Admin: 02/21/17 08:45 Dose: 75 mg Guaifenesin (Robitussin) 100 mg PO Q6 PRN PRN Reason: Cough Last Admin: 02/20/17 21:57 Dose: 100 mg Heparin Sodium (Porcine) (Heparin) 5,000 units SC Q8 [place] PRN Reason: Protocol Last Admin: 02/21/17 08:47 Dose: 5,000 units Azithromycin 500 mg/ Sodium (Chloride) 250 mls @ 250 mls/hr IVPB DAILY [facility] Last Admin: 02/21/17 08:49 Dose: 250 mls/hr Dextrose/Sodium Chloride (Dextrose 5%-0.45% Ns 500 Ml) 1,000 mls @ 40 mls/hr IV .Q24H [facility] Last Admin: 02/21/17 12:40 Dose: Not Given Insulin Detemir (Levemir) 13 units SC HS [facility] Last Admin: 02/20/17 21:52 Dose: 13 units Insulin Human Lispro (Humalog) 0 units SC ACHS [facility] PRN Reason: Protocol Last Admin: 02/21/17 12:40 Dose: 1 unit Lisinopril (Zestril) 10 mg PO DAILY [facility] Last Admin: 02/21/17 08:45 Dose: 10 mg Metoprolol Tartrate (Lopressor) 100 mg PO DAILY [facility] Last Admin: 02/21/17 08:46 Dose: 100 mg Fluticasone/Salmeterol (Advair Diskus 100/50) 1 puff IH Q12H [facility] Last Admin: 02/21/17 04:49 Dose: 1 puff - Labs Labs: 02/19/17 06:05 02/21/17 06:00 PT 10.9 SECONDS (9.6-11.2) 02/13/17 09:50 INR 1.05 (0.92-1.08) 02/13/17 09:50 APTT 29.4 SECONDS (23.3-32.5) 02/13/17 09:50 - Constitutional Appears: Non-toxic, Chronically Ill - Head Exam Head Exam: NORMOCEPHALIC - Eye Exam Eye Exam: PERRL. absent: Scleral icterus - ENT Exam ENT Exam: Mucous Membranes Dry, Normal External Ear Exam - Neck Exam Neck Exam: absent: Lymphadenopathy, Thyromegaly - Respiratory Exam Respiratory Exam: Decreased Breath Sounds, Rhonchi - Cardiovascular Exam Cardiovascular Exam: REGULAR RHYTHM, +S1, +S2 - GI/Abdominal Exam GI & Abdominal Exam: Distended, Soft. absent: Tenderness - Rectal Exam Rectal Exam: Deferred - Exam Exam: NORMAL INSPECTION - Extremities Exam Extremities Exam: absent: Calf Tenderness, Pedal Edema - Back Exam Back Exam: absent: CVA tenderness (L), CVA tenderness (R), paraspinal tenderness - Neurological Exam Neurological Exam: Alert, Awake, Oriented x3 - Psychiatric Exam Psychiatric exam: Normal Mood - Skin Skin Exam: Dry, Intact Assessment and Plan (1) Altered mental status Status: Acute (2) CAD (coronary artery disease) Status: Acute (3) Hypoglycemia Status: Acute (4) Pneumonia Status: Acute (5) Chronic systolic dysfunction of left ventricle Status: Acute (6) Dehydration Status: Acute (7) Sepsis Status: Acute (8) Atelectasis Status: Acute
--- NOTE | 2017-02-24 07:34 | PQF SEPSIS ---
Dr. Edgar sepsis is documented in 02/14 consult but not in discharge summary. Was diagnosis of sepsis ruled in or out? This form is a permanent part of the medical record Clarification of your documentation is requested to better reflect the severity of illness and intensity of treatment of your patient. Indicators present [] Temp < 96.8 or > 100.4 [] WBC count > 12,000/mm3 or <000/mm3 or 10% immature neutrophils [] Heart Rate > 90 [] Respiratory Rate > 20 [] Fever or hypothermia [] Chills [] Positive blood cultures [] Hypotension [] Metabolic acidosis (Elevated lactate level, anion gap or reduced blood pH) [x] Acute confusion /Altered Mental Status [] Shock [] Other: [] Location in the medical record that reflects the above clinical findings: [x] consult Treatment Provided: [] PHYSICIAN'S RESPONSE Based on your medical judgment of the clinical indicators outlined above, are you treating this patient for a known or suspected: [X] Sepsis / Septicemia Please specify organism if known [] [] SIRS (Systemic Inflammatory Response Syndrome) [] Severe Sepsis (Sepsis with Associated Organ Dysfunction) [] Fever of Unknown Origin [X] Other, please indicate: Hypoglycemia [] If Unable to Determine, please check the box, sign and date. Present On Admission (POA) Indicator: [X] Present at the time of admission [] Not present at the time of admission [] Clinically Undetermined In responding to this query, please exercise your independent professional judgment. The fact that a question is asked does not imply that any particular answer is desired or expected. Thank you for your clarification on this documentation. If you have any questions please call:[ ] * Thank you, [ ]Juanita Reyes disintegrator operator MARIUSZ
== END 2017-02-21 14:47 | DRG 871 ==
LOC: H.ER 09:18 → H.ERHOLD 12:34 → H.TEL 14:12
PROVIDERS: ADMIT Internal Medicine; ATTEND Internal Medicine
DX: A41.9 Sepsis, unspecified organism (principal); J18.9 Pneumonia, unspecified organism; N17.9 Acute kidney failure, unspecified; I13.0 Hypertensive heart and chronic kidney disease with heart failure and stage 1 through stage 4 chronic kidney disease, or unspecified chronic kidney disease; J44.0 Chronic obstructive pulmonary disease with (acute) lower respiratory infection; I50.22 Chronic systolic (congestive) heart failure; E11.21 Type 2 diabetes mellitus with diabetic nephropathy; J98.11 Atelectasis; N25.81 Secondary hyperparathyroidism of renal origin; E11.649 Type 2 diabetes mellitus with hypoglycemia without coma; N18.3 Chronic kidney disease, stage 3 (moderate); D64.9 Anemia, unspecified; E11.22 Type 2 diabetes mellitus with diabetic chronic kidney disease; E78.00 Pure hypercholesterolemia, unspecified; E86.0 Dehydration; E87.5 Hyperkalemia; I25.10 Atherosclerotic heart disease of native coronary artery without angina pectoris; J45.909 Unspecified asthma, uncomplicated; Z86.73 Personal history of transient ischemic attack (TIA), and cerebral infarction without residual deficits; Z95.1 Presence of aortocoronary bypass graft

== ENCOUNTER 2018-04-08 19:45 | Inpatient (IN) | payer MEDICARE, OTHER ==
[2018-04-08 19:45] VITALS: BMI 26.4
--- NOTE | 2018-04-08 21:06 | ED PDOC ---
HPI: General Adult Time Seen by Provider: 04/08/18 20:18 Chief Complaint (Nursing): GI Problem Chief Complaint (Provider): GI Problem, lower extremity injury History Per: Patient History/Exam Limitations: no limitations Onset/Duration Of Symptoms: Days Current Symptoms Are (Timing): Still Present Additional Complaint(s): 82 year old male was sent from [facility], complaining of chest pain for two days, nausea/vomiting black material, cough with a productive yellow sputum, broke 5th right toe on Wednesday while getting out of bed, and abdominal pain. Denies constipation and diarrhea. PMD: Dr. Keke Edgar Past Medical History Reviewed: Historical Data, Nursing Documentation, Vital Signs Vital Signs: Last Vital Signs Temp 99.7 F H 04/08/18 19:50 Pulse 78 04/08/18 22:28 Resp 15 04/08/18 22:28 BP 151/72 H 04/08/18 22:28 Pulse Ox 97 04/08/18 22:28 - Medical History PMH: Asthma, COPD, CVA, Diabetes, Gall Bladder Disease, HTN, Hypercholesterolemia, TIA Denies: HIV, Chronic Kidney Disease - Surgical History Surgical History: Appendectomy, CABG, Cholecystectomy - Family History Family History: States: Unknown Family Hx - Immunization History Hx Tetanus Toxoid Vaccination: No Hx Influenza Vaccination: Yes Hx Pneumococcal Vaccination: No - Home Medications Home Medications: Ambulatory Orders Medication Instructions Recorded Clopidogrel [Plavix] 75 mg PO DAILY 06/07/15 Metoprolol Tartrate [Lopressor] 50 mg PO DAILY 01/17/16 Pravastatin Sodium [Pravachol] 80 mg PO HS 01/17/16 Lisinopril [Zestril] 10 mg PO DAILY tab 01/27/17 amLODIPine [Norvasc] 5 mg PO DAILY tab 01/27/17 Albuterol/Ipratropium [Duoneb 3 3 ml NEB Q6 PRN 02/13/17 mg/0.5 mg (3 ml) UD] Acetaminophen [Tylenol 325mg tab] 650 mg PO Q4 PRN 04/08/18 Acetaminophen [Tylenol 325mg tab] 650 mg PO Q4 PRN 04/08/18 Aspirin [[place] Aspirin] 81 mg PO DAILY 04/08/18 Calcitriol [Rocaltrol] 1 cap PO DAILY 04/08/18 Docusate [Colace] 100 mg PO BID 04/08/18 Epoetin [place] [Procrit] 4,000 unit SQ MWF 04/08/18 Ferrous Sulfate [Feosol] 325 mg PO DAILY 04/08/18 Fluticasone/Salmeterol 100/50 1 inh INH Q12 04/08/18 [Advair Diskus 100/50] Folic Acid/Vit B Complex and C 1 tab PO DAILY 04/08/18 [Nephro-Zacarias Tablet] Insulin Lispro Protamin/Lispro 9 units SQ QPM 04/08/18 [Humalog Mix 75-25 Kwikpen] Insulin Lispro Protamin/Lispro 18 units SQ AC 04/08/18 [Humalog Mix 75-25 Kwikpen] Latanoprost 0.005% Opht [Xalatan 1 drop EACHEYE HS 04/08/18 Opht] Menthol [Icy Hot] 1 patch TOP Q12 04/08/18 Vortioxetine Hydrobromide 5 mg PO DAILY 04/08/18 [Trintellix] - Allergies Allergies/Adverse Reactions: Allergies Allergy/AdvReac Type Severity Reaction Status Date / Time No Known Allergies Allergy Verified 02/13/17 09:28 Review of Systems ROS Statement: Except As Marked, All Systems Reviewed And Found Negative Cardiovascular: Positive for: Chest Pain (x2 days) Respiratory: Positive for: Cough (productive cough with yellow sputum) Gastrointestinal: Positive for: Nausea, Vomiting (black material ). Negative for: Diarrhea, Constipation Physical Exam - Reviewed Nursing Documentation Reviewed: Yes Vital Signs Reviewed: Yes - Physical Exam Appears: Positive for: Non-toxic, No Acute Distress Skin: Positive for: Normal Color, Warm, Dry Eye Exam: Positive for: EOMI, Normal appearance, PERRL ENT: Positive for: Normal ENT Inspection Neck: Positive for: Normal, Painless ROM, Supple Cardiovascular/Chest: Positive for: Regular Rate, Rhythm. Negative for: Murmur Respiratory: Positive for: Normal Breath Sounds. Negative for: Respiratory Distress Gastrointestinal/Abdominal: Positive for: Normal Exam, Tenderness (epigastric tenderness) Back: Positive for: Normal Inspection. Negative for: L CVA Tenderness, R CVA Tenderness, Vertebral Tenderness Extremity: Positive for: Normal ROM, Deformity (right fifth toe angeled medially ) Neurologic/Psych: Positive for: Alert, Oriented. Negative for: Motor/Sensory Deficits - Laboratory Results Result Diagrams: 04/08/18 21:11 04/08/18 21:11 - ECG Interpretation Of ECG: NSR @ 79, no ST-T changes. O2 Sat by Pulse Oximetry: 97 (RA) Pulse Ox Interpretation: Normal - Radiology X-Ray: Interpreted by Me X-Ray Interpretation: No Acute Disease Medical Decision Making Medical Decision Making: Time: 2038 Impression: chest pain, pneumonia, upper GI bleed, toe fracture Plan: -- Type and Screen -- CT Abd & Pelvis -- EKG -- CMP -- Lipase -- Troponin I -- ED Urine Dipstick -- CBC with differentials -- PTT -- Prothrombin Time -- Chest Portable XR -- Blood Culture -- Foot Right 3 Views -- Urinalysis Accession No. : [id number] Patient Name / ID : COTY DUGGAN / [id number] Exam Date : 04/08/2018 21:49:39 ( Approved ) Study Comment : Sex / Age : M / [id number] Creator : LILA ZEE Dictator : Mortgage Analyst : Grommet Machine Operator : LILA ZEE Approver2 : Report Date : 04/08/2018 22:42:00 My Comment : [facility] Division of Radiology [address] [place] [address] Tel. no. Patient Name: URBAN ANSARI Pt. Address: [address] [place] [address] Med. Rec #: [id number] [place] [address]: Mark PLASCENCIA, Xin Harris Pt CELL Order Location: [facility] : 1935 Male Age: 82 Order #: [id number] Reason for exam: Upper abd pain, vomiting CT Scan ABD PELVIS W/O PO OR IV CONT Exam Date: 04/08/18 This imaging exam was performed at [facility] ADDENDUM Addendum created by Lila Zee MD on 04/08/2018 10:46:26 PM EDT THIS REPORT CONTAINS FINDINGS THAT MAY BE CRITICAL TO PATIENT CARE. The findings were verbally communicaated via telephone conference with Dr. Girard at 10:46 PM EDT on 04/08/2018. The findings were acknowledged and understood. Initial report created on 04/08/2018 10:42:00 PM EDT EXAM: CT Abdomen and Pelvis Without Intravenous Contrast CLINICAL HISTORY: 82 years old, male; Pain and signs and symptoms; Vomiting; Abdominal pain; Localized; Upper; Prior surgery; Surgery date: 6+ months; Surgery type: Cholecystectomy. Appendectomy; Additional info: Upper abd pain, vomiting TECHNIQUE: Axial computed tomography images of the abdomen and pelvis without intravenous contrast. All CT scans at this facility use one or more dose reduction techniques, viz.: automated exposure control; ma/kV adjustment per patient size (including targeted exams where dose is matched to indication; i.e. head); or iterative reconstruction technique. Coronal and sagittal reformatted images were created and reviewed. COMPARISON: No relevant prior studies available. FINDINGS: Lung bases: There is minimal bibasilar atelectasis. Mediastinum: A moderate hiatal hernia is present. ABDOMEN: Liver: Unremarkable. Gallbladder and bile ducts: There has been a cholecystectomy. The extrahepatic duct is dilated measuring 15 mm in greatest diameter and tapering to 8 mm in the pancreatic head. There are densities in the distal common bile duct measuring 5 mm. Question distal common bile duct stones. Coronal image 57 series 601. No free fluid to suggest biliary leak. Pancreas: Unremarkable. No ductal dilation. Spleen: Unremarkable. No splenomegaly. Adrenals: Unremarkable. No mass. Kidneys and ureters: There is a 1.7 cm cyst in the midpole of the right kidney. There are too small to characterize low-density lesions in both kidneys. There are calcifications in both kidneys most likely vascular. No hydronephrosis. Stomach and bowel: Extensive diverticulosis is present in the sigmoid and descending colon. There is no evidence of diverticulitis. No obstruction. PELVIS: Appendix: Not visualized. History of appendectomy. Bladder: The anterior right bladder extends partially into the right inguinal hernia. Reproductive: Unremarkable as visualized. ABDOMEN and PELVIS: Intraperitoneal space: No free air. No significant fluid collection. Bones/joints: Total left hip arthroplasty with streak artifact somewhat limiting the pelvis. There is moderate diffuse osteopenia. There is an age-indeterminate compression deformity of the T12 vertebral body, with 50% loss of anterior height. Soft tissues: There is a nonobstructing right inguinal hernia. Vasculature: The vasculature demonstrates diffuse moderate atherosclerotic calcification. Lymph nodes: Unremarkable. No enlarged lymph nodes. IMPRESSION: Cholecystectomy. Dilated distal common bile duct with possible distal common bile duct stones. Further evaluation with MRCP is recommended. Right renal cyst. Too small to characterize low-density lesions bilaterally. No followup necessary. Diverticulosis. No acute diverticulitis. Nonobstructing right inguinal hernia. Age-indeterminate T12 compression fracture. Osteopenia. Addendum Dictated By: Lila Zee MD Addendum Dictated Date Time:04/08/18 Addendum Signed by:Lila Zee MD Addendum signed Date Time: 04/08/182245 Addendum Transcribed By: CINTHIA Addendum Transcribed Date Time: 04/08/18 SULTANA/ZULEIMA EXAM: CT Abdomen and Pelvis Without Intravenous Contrast CLINICAL HISTORY: 82 years old, male; Pain and signs and symptoms; Vomiting; Abdominal pain; Localized; Upper; Prior surgery; Surgery date: 6+ months; Surgery type: Cholecystectomy. Appendectomy; Additional info: Upper abd pain, vomiting TECHNIQUE: Axial computed tomography images of the abdomen and pelvis without intravenous contrast. All CT scans at this facility use one or more dose reduction techniques, viz.: automated exposure control; ma/kV adjustment per patient size (including targeted exams where dose is matched to indication; i.e. head); or iterative reconstruction technique. Coronal and sagittal reformatted images were created and reviewed. COMPARISON: No relevant prior studies available. FINDINGS: Lung bases: There is minimal bibasilar atelectasis. Mediastinum: A moderate hiatal hernia is present. ABDOMEN: Liver: Unremarkable. Gallbladder and bile ducts: There has been a cholecystectomy. The extrahepatic duct is dilated measuring 15 mm in greatest diameter and tapering to 8 mm in the pancreatic head. There are densities in the distal common bile duct measuring 5 mm. Question distal common bile duct stones. Coronal image 57 series 601. No free fluid to suggest biliary leak. Pancreas: Unremarkable. No ductal dilation. Spleen: Unremarkable. No splenomegaly. Adrenals: Unremarkable. No mass. Kidneys and ureters: There is a 1.7 cm cyst in the midpole of the right kidney. There are too small to characterize low-density lesions in both kidneys. There are calcifications in both kidneys most likely vascular. No hydronephrosis. Stomach and bowel: Extensive diverticulosis is present in the sigmoid and descending colon. There is no evidence of diverticulitis. No obstruction. PELVIS: Appendix: Not visualized. History of appendectomy. Bladder: The anterior right bladder extends partially into the right inguinal hernia. Reproductive: Unremarkable as visualized. ABDOMEN and PELVIS: Intraperitoneal space: No free air. No significant fluid collection. Bones/joints: Total left hip arthroplasty with streak artifact somewhat limiting the pelvis. There is moderate diffuse osteopenia. There is an age-indeterminate compression deformity of the T12 vertebral body, with 50% loss of anterior height. Soft tissues: There is a nonobstructing right inguinal hernia. Vasculature: The vasculature demonstrates diffuse moderate atherosclerotic calcification. Lymph nodes: Unremarkable. No enlarged lymph nodes. IMPRESSION: Cholecystectomy. Dilated distal common bile duct with possible distal common bile duct stones. Further evaluation with MRCP is recommended. Right renal cyst. Too small to characterize low-density lesions bilaterally. No followup necessary. Diverticulosis. No acute diverticulitis. Nonobstructing right inguinal hernia. Age-indeterminate T12 compression fracture. Osteopenia. Dictated By: Lila Zee MD Dictated Date/Time: 04/08/182241 Signed By: Lila Prater MD Date Signed: 2241 Transcribed By: CINTHIA Transcribe Date/Time : 04/08/182241 SULTANA/ZULEIMA 23:55 Case discussed with Podiatry resident, will consult. Scribe Attestation: Documented by Kayla Bustamante, acting as a scribe for Dr. Xin Flores MD. Provider Scribe Attestation: All medical record entries made by the Scribe were at my direction and personally dictated by me. I have reviewed the chart and agree that the record accurately reflects my personal performance of the history, physical exam, medical decision making, and the department course for this patient. I have also personally directed, reviewed, and agree with the discharge instructions and disposition. Disposition - Clinical Impression Clinical Impression: Chest pain, Bronchitis, Vomiting, Foot fracture - Patient ED Disposition Is Patient to be Admitted: Yes - Disposition Disposition Time: 23:58 Condition: STABLE Forms: [employer] ([place]) - Pt Status Changed To: Hospital Disposition Of: Inpatient - Admit Certification Admit to Inpatient:: After my assessment, the patient will require hospitalization for at least two midnights. This is because of the severity of symptoms shown, intensity of services needed, and/or the medical risk in this patient being treated as an outpatient. - POA Present On Arrival: Poor Glycemic Control
[2018-04-08 21:25] LABS: BASO % 0.5 % (0.0-2.0); EOS # 0.1 K/uL (0.0-0.7); EOS % 1.5 % (0.0-4.0); HEMOGLOBIN 11.9 g/dL (12.0-18.0); LYMPH # 0.6 K/uL (1.0-4.3); LYMPH % 8.1 % (20.0-40.0); MEAN CELL VOLUME 95.2 fl (80.0-94.0); MEAN CORPUSCULAR HGB CONC 32.6 g/dL (33.0-37.0); MEAN PLATELET VOLUME 9.4 fl (7.2-11.7); MONO # 0.8 K/uL (0.0-0.8); MONO % 11.1 % (0.0-10.0); NEUT % 78.8 % (50.0-75.0); PLATELET COUNT 194 K/uL (130-400); RBC 3.84 Mil/uL (4.40-5.90); RED CELL DISTRIBUTION WIDTH 13.8 % (11.5-14.5); WHITE BLOOD COUNT 7.6 K/uL (4.8-10.8)
[2018-04-08 21:27] LABS: ALB/GLOB RATIO 1.1 (1.0-2.1); ALBUMIN 3.7 g/dL (3.5-5.0)
[2018-04-08 21:35] LABS: INR 1.1 (0.9-1.2); PARTIAL THROMBOPLASTIN TIME 29.5 Seconds (25.6-37.1); PROTHROMBIN TIME 11.9 Seconds (9.8-13.1)
[2018-04-08 21:38] LABS: TROPONIN I 0.022 ng/mL (0.00-0.120)
[2018-04-08 22:06] LABS: BASOPHIL 2 % (0-2); EOSINOPHIL 1 % (0-7); LYMPHOCYTE 5 % (20-50); MONOCYTE 7 % (0-10); NEUTROPHIL 84 % (42-75); REACTIVE LYMPHOCYTES 1 % (0-0); TOTAL CELLS COUNTED 100
[2018-04-08 22:07] LABS: HYPOCHROMIC SLIGHT; STOMATOCYTES SLIGHT
[2018-04-08 22:08] LABS: PLATELET ESTIMATE NORMAL (NORMAL)
--- NOTE | 2018-04-08 22:42 | CT ---
EXAM: CT Abdomen and Pelvis Without Intravenous Contrast CLINICAL HISTORY: 82 years old, male; Pain and signs and symptoms; Vomiting; Abdominal pain; Localized; Upper; Prior surgery; Surgery date: 6+ months; Surgery type: Cholecystectomy. Appendectomy; Additional info: Upper abd pain, vomiting TECHNIQUE: Axial computed tomography images of the abdomen and pelvis without intravenous contrast. All CT scans at this facility use one or more dose reduction techniques, viz.: automated exposure control; ma/kV adjustment per patient size (including targeted exams where dose is matched to indication; i.e. head); or iterative reconstruction technique. Coronal and sagittal reformatted images were created and reviewed. COMPARISON: No relevant prior studies available. FINDINGS: Lung bases: There is minimal bibasilar atelectasis. Mediastinum: A moderate hiatal hernia is present. ABDOMEN: Liver: Unremarkable. Gallbladder and bile ducts: There has been a cholecystectomy. The extrahepatic duct is dilated measuring 15 mm in greatest diameter and tapering to 8 mm in the pancreatic head. There are densities in the distal common bile duct measuring 5 mm. Question distal common bile duct stones. Coronal image 57 series 601. No free fluid to suggest biliary leak. Pancreas: Unremarkable. No ductal dilation. Spleen: Unremarkable. No splenomegaly. Adrenals: Unremarkable. No mass. Kidneys and ureters: There is a 1.7 cm cyst in the midpole of the right kidney. There are too small to characterize low-density lesions in both kidneys. There are calcifications in both kidneys most likely vascular. No hydronephrosis. Stomach and bowel: Extensive diverticulosis is present in the sigmoid and descending colon. There is no evidence of diverticulitis. No obstruction. PELVIS: Appendix: Not visualized. History of appendectomy. Bladder: The anterior right bladder extends partially into the right inguinal hernia. Reproductive: Unremarkable as visualized. ABDOMEN and PELVIS: Intraperitoneal space: No free air. No significant fluid collection. Bones/joints: Total left hip arthroplasty with streak artifact somewhat limiting the pelvis. There is moderate diffuse osteopenia. There is an age-indeterminate compression deformity of the T12 vertebral body, with 50% loss of anterior height. Soft tissues: There is a nonobstructing right inguinal hernia. Vasculature: The vasculature demonstrates diffuse moderate atherosclerotic calcification. Lymph nodes: Unremarkable. No enlarged lymph nodes. IMPRESSION: Cholecystectomy. Dilated distal common bile duct with possible distal common bile duct stones. Further evaluation with MRCP is recommended. Right renal cyst. Too small to characterize low-density lesions bilaterally. No followup necessary. Diverticulosis. No acute diverticulitis. Nonobstructing right inguinal hernia. Age-indeterminate T12 compression fracture. Osteopenia.
[2018-04-08] MEDS ORDERED: Sod Polystyrene Sulf 15 gm/60 ml Susp PO STA (23:25)
[2018-04-08] MEDS ORDERED: Insulin Regular 100 units/ml IV STA (23:25)
[2018-04-08] MEDS ORDERED: Azithromycin 500 MG in Sodium Chloride 0.9% 250 ML IV STA (23:52)
[2018-04-09] MEDS ORDERED: cefTRIAXone (Rocephin) 1 gm Inj ONE (00:08)
--- NOTE | 2018-04-09 01:17 | US ---
EXAM: US Abdomen Limited, Right Upper Quadrant CLINICAL HISTORY: 82 years old, male; Signs and symptoms; Vomiting; Prior surgery; Surgery date: 6+ months; Surgery type: Cholecystectomy; Additional info: Gallstones TECHNIQUE: Real-time ultrasound of the right upper quadrant with image documentation. COMPARISON: CT - ABD PELVIS W/O PO OR IV CONT 2018-04-08 21:49 FINDINGS: Liver: Unremarkable measuring 17.4 cm. No mass. No intrahepatic bile duct dilation. Gallbladder: Cholecystectomy. Common bile duct: The common bile duct is dilated measuring 10 mm. The distal common bile duct is not well visualized secondary to bowel gas. Pancreas: The pancreas is poorly-visualized due to overlying bowel gas. Right kidney: The right kidney measures 9 x 6 x 5 cm. There is a 2 x 1.9 x 1.7 cm simple cyst in the midpole of the right kidney. No stones. No solid mass. No hydronephrosis. IMPRESSION: Cholecystectomy. Dilated common bile duct. Limited visualization of the distal common bile duct. Simple right renal cyst.
[2018-04-09] MEDS ORDERED: Insulin Regular 100 units/ml ONE (01:44)
[2018-04-09] MEDS ORDERED: Pneumococcal 23-Valent Vaccine IM ONE (04:21)
[2018-04-09] MEDS ORDERED: Albuterol-Ipratrop 3 mg / 0.5 (3 ml) UD INH PRN (06:32)
[2018-04-09] MEDS ORDERED: MENTHOL TOP SCH (09:00)
--- NOTE | 2018-04-09 09:14 | RAD ---
HISTORY: Cough COMPARISON: 02/17/2017 FINDINGS: LUNGS: No active pulmonary disease. PLEURA: No significant pleural effusion identified, no pneumothorax apparent. CARDIOVASCULAR: CABG. Normal heart size. OSSEOUS STRUCTURES: No significant abnormalities. VISUALIZED UPPER ABDOMEN: Normal. OTHER FINDINGS: None. IMPRESSION: No active disease.
[2018-04-09] MEDS: Fluticasone-Salmeterol 100-50mcg Diskus INH SCH ×2 (09:17→21:39)
[2018-04-09] MEDS: Multivitamin Vitamin B Complex (Nephro-Vite) Tab PO SCH (09:18)
[2018-04-09] MEDS: Insulin Lispro Mix 75/25 100 units/ml (HumaLog) 10ml SC SCH (09:21)
--- NOTE | 2018-04-09 09:22 | RAD ---
PROCEDURE: Right Foot Radiographs. HISTORY: Injury COMPARISON: None. FINDINGS: BONES: Old healed fracture distal 4th metatarsal diaphysis. 5th metatarsal diaphysis fracture, acute to subacute. Questionable callus seen about this fracture. No other fracture identified. JOINTS: Normal. SOFT TISSUES: Normal. OTHER FINDINGS: None. IMPRESSION: Acute versus subacute fracture 5th metatarsal diaphysis. Old healed 4th metatarsal diaphysis fracture.
[2018-04-09 10:20] LABS: SQUAMOUS EPITHIAL < 1 /hpf (0-5); URINE BILIRUBIN NEGATIVE (NEGATIVE); URINE BLOOD NEGATIVE (NEGATIVE); URINE CLARITY SLIGHTY-CLOUDY (Clear); URINE COLOR YELLOW (YELLOW); URINE GLUCOSE (UA) >=500 mg/dL (Normal); URINE HYALINE CAST 0-2 /hpf (0-2); URINE LEUKOCYTE ESTERASE NEG Leu/uL (Negative); URINE PROTEIN >=500 mg/dL (NEGATIVE); URINE UROBILINOGEN 0.2-1.0 mg/dL (0.2-1.0)
--- NOTE | 2018-04-09 11:27 | CARD ---
APPROVED REPORT EKG Measurement Heart [id number] <Conclusion> Normal sinus rhythm Possible Inferior infarct, age undetermined Abnormal ECG
--- NOTE | 2018-04-09 17:51 | CP.PCM.CON ---
History of Present Illness - History of Present Illness History of Present Illness: Podiatry Consult note: Dr. Mcclain 82 year old male with PMHx of DM, HTN, hyperlipidemia, CVA, CAD s/p CABG, COPD, Asthma was seen and evaluated at bedside for pain in the right foot. Patient reports that the pain started about a week ago when he bumped his foot in the furniture. Reports that since the injury he has been walking on the foot with pain. Reports that he had pain in the beginning with swelling but the pain and swelling went down over time. Reports he still has pain if someone presses on the foot. Denies of any other injury at this time. Denies of having any recent F /C/SOB. Reports that he has been vomiting in the past couple of days. Reports that he has productive coughing with chest pain as well. No other pedal complains at this time. PMHx: DM, HTN, hyperlipidemia, CVA, CAD s/p CABG, COPD, Asthma PSHx: Appendectomy, CABG, Cholecystectomy Allergies: N.K.D.A SHx: Former smoker, denies EtOH or illicit drug usage Review of Systems - Constitutional Constitutional: As Per HPI Past Patient History - Infectious Disease Hx of Infectious Diseases: None - Past Medical History & Family History Past Medical History?: Yes - Past Social History Smoking Status: Never Smoked - CARDIAC Hx Cardiac Disorders: Yes - PULMONARY Hx Respiratory Disorders: Yes - NEUROLOGICAL Hx Neurological Disorder: Yes - HEENT Hx HEENT Problems: Yes - RENAL Hx Chronic Kidney Disease: Yes - ENDOCRINE/METABOLIC Hx Endocrine Disorders: Yes - HEMATOLOGICAL/ONCOLOGICAL Hx Blood Disorders: Yes - INTEGUMENTARY Hx Dermatological Problems: No - MUSCULOSKELETAL/RHEUMATOLOGICAL Hx Musculoskeletal Disorders: Yes - GASTROINTESTINAL Hx Gall Bladder Disease: Yes - GENITOURINARY/GYNECOLOGICAL Hx Genitourinary Disorders: No - PSYCHIATRIC Hx Psychophysiologic Disorder: Yes - SURGICAL HISTORY Hx Appendectomy: Yes Hx Cholecystectomy: Yes Hx Coronary Artery Bypass Graft: Yes - ANESTHESIA Hx Anesthesia: Yes Hx Anesthesia Reactions: No Hx Malignant Hyperthermia: No Has any member of the family had a problem w/ anesthesia?: No Meds Allergies/Adverse Reactions: Allergies Allergy/AdvReac Type Severity Reaction Status Date / Time No Known Allergies Allergy Verified 02/13/17 09:28 - Medications Medications: Current Medications Acetaminophen (Tylenol 325mg Tab) 650 mg PO Q4 PRN PRN Reason: Pain, Mild (1-3) Albuterol/Ipratropium (Duoneb 3 Mg/0.5 Mg (3 Ml) Ud) 3 ml INH Q6 PRN PRN Reason: Shortness of Breath Amlodipine Besylate (Norvasc) 5 mg PO DAILY [facility] Last Admin: 04/09/18 09:19 Dose: 5 mg Aspirin (Ecotrin) 81 mg PO DAILY [facility] Last Admin: 04/09/18 09:19 Dose: 81 mg Calcitriol (Rocaltrol) 0.25 mcg PO DAILY [facility] Last Admin: 04/09/18 09:20 Dose: 0.25 mcg Clopidogrel Bisulfate (Plavix) 75 mg PO DAILY [facility] Last Admin: 04/09/18 09:20 Dose: 75 mg Docusate Sodium (Colace) 100 mg PO BID [facility] Last Admin: 04/09/18 17:31 Dose: 100 mg Epoetin Chapito (Procrit) 4,000 unit SC MWF [facility] Ferrous Sulfate (Feosol) 325 mg PO DAILY [facility] Last Admin: 04/09/18 09:18 Dose: 325 mg Heparin Sodium (Porcine) (Heparin) 5,000 units SC Q8 [facility] PRN Reason: Protocol Last Admin: 04/09/18 17:31 Dose: 5,000 units Home Med (Menthol [Icy Hot]) 1 patch TOP Q12 [facility] Home Med (Vortioxetine Hydrobromide [Trintellix]) 5 mg PO DAILY [facility] Insulin Lispro Protam/Lispro Human (Humalog Mix 75/25) 9 units SC QPM [facility] Insulin Lispro Protam/Lispro Human (Humalog Mix 75/25) 18 units SC BRK [facility] Last Admin: 04/09/18 09:21 Dose: 18 units Latanoprost (Xalatan Opht) 1 drop OU HS [facility] Lisinopril (Zestril) 10 mg PO DAILY [facility] Last Admin: 04/09/18 09:18 Dose: 10 mg Metoprolol Tartrate (Lopressor) 50 mg PO DAILY [facility] Last Admin: 04/09/18 09:19 Dose: 50 mg Pravastatin Sodium (Pravachol) 80 mg PO HS [facility] Fluticasone/Salmeterol (Advair Diskus 100/50) 1 puff INH Q12 [facility] Last Admin: 05/19/18 09:17 Dose: 1 puff Vitamin B Complex/Vit C/Folic Acid (Nephro-Zacarias) 1 tab PO DAILY [facility] Last Admin: 04/09/18 09:18 Dose: 1 tab Physical Exam - Constitutional Appears: Well, Non-toxic, No Acute Distress - Extremities Exam Additional comments: Right LE focused exam VASC: DP/PT pulses are very faintly palpable 1/4, Cap refill time: < 3 sec to all digits, Temp gradient warm to warm from proximal to distal, no pitting or non-pitting edema noted DERM: no open lesions, no inter-digital maceration, no clinical suspicion of infection NEURO: Protective sensation grossly intact ORTHO: Pain on palpation of the distal lateral forefoot at the level of 4th and 5th metatarsal neck, no pain at the MTPJ during AROM but present during passive ROM, MMT: 5/5 in all 4 direction at the ankle joint - Neurological Exam Neurological exam: Alert, Oriented x3 - Psychiatric Exam Psychiatric exam: Normal Affect, Normal Mood Results - Vital Signs Recent Vital Signs: Last Vital Signs Temp 98.9 F 04/09/18 15:35 Pulse 66 04/09/18 15:35 Resp 18 04/09/18 15:35 BP 137/74 04/09/18 15:35 Pulse Ox 96 04/09/18 15:35 - Labs Result Diagrams: 04/08/18 21:11 04/08/18 21:11 Labs: Laboratory Results - last 24 hr 04/08/18 04/08/18 04/08/18 21:00 21:11 21:11 WBC 7.6 RBC 3.84 L Hgb 11.9 L Hct 36.6 MCV 95.2 H MCH 31.0 MCHC 32.6 L RDW 13.8 Plt Count 194 MPV 9.4 Neut % (Auto) 78.8 H Lymph % (Auto) 8.1 L Addison % (Auto) 11.1 H Eos % (Auto) 1.5 Baso % (Auto) 0.5 Neut # (Auto) 6.0 Lymph # (Auto) 0.6 L Addison # (Auto) 0.8 Eos # (Auto) 0.1 Baso # (Auto) 0.0 Neutrophils % (Manual) 84 H Lymphocytes % (Manual) 5 L Reactive Lymphs % 1 H Monocytes % (Manual) 7 Eosinophils % (Manual) 1 Basophils % (Manual) 2 Platelet Estimate Normal Hypochromasia (manual) Slight Stomatocytes Slight PT INR APTT Sodium 139 Potassium 5.4 H Chloride 102 Carbon Dioxide 20 L Anion Gap 22 H BUN 57 H Creatinine 3.2 H Est GFR ( Amer) 23 Est GFR (Non-Af Amer) 19 POC Glucose (mg/dL) Random Glucose 210 H Calcium 9.0 Total Bilirubin 0.4 AST 22 ALT 36 Alkaline Phosphatase 55 Troponin I 0.0220 Total Protein 7.2 Albumin 3.7 Globulin 3.5 Albumin/Globulin Ratio 1.1 Lipase 179 Urine Color Urine Clarity Urine pH Ur Specific Cotton Urine Protein Urine Glucose (UA) Urine Ketones Urine Blood Urine Nitrate Urine Bilirubin Urine Urobilinogen Ur Leukocyte Esterase Urine RBC (Auto) Urine Microscopic WBC Ur Squamous Epith Cells Hyaline Casts Blood Type O POSITIVE Antibody Screen Negative BBK History Checked No verified bt 04/08/18 04/09/18 04/09/18 21:11 01:47 05:23 WBC RBC Hgb Hct MCV MCH MCHC RDW Plt Count MPV Neut % (Auto) Lymph % (Auto) Addison % (Auto) Eos % (Auto) Baso % (Auto) Neut # (Auto) Lymph # (Auto) Addison # (Auto) Eos # (Auto) Baso # (Auto) Neutrophils % (Manual) Lymphocytes % (Manual) Reactive Lymphs % Monocytes % (Manual) Eosinophils % (Manual) Basophils % (Manual) Platelet Estimate Hypochromasia (manual) Stomatocytes PT 11.9 INR 1.1 APTT 29.5 Sodium Potassium Chloride Carbon Dioxide Anion Gap BUN Creatinine Est GFR ( Amer) Est GFR (Non-Af Amer) POC Glucose (mg/dL) 181 H 250 H Random Glucose Calcium Total Bilirubin AST ALT Alkaline Phosphatase Troponin I Total Protein Albumin Globulin Albumin/Globulin Ratio Lipase Urine Color Urine Clarity Urine pH Ur Specific Cotton Urine Protein Urine Glucose (UA) Urine Ketones Urine Blood Urine Nitrate Urine Bilirubin Urine Urobilinogen Ur Leukocyte Esterase Urine RBC (Auto) Urine Microscopic WBC Ur Squamous Epith Cells Hyaline Casts Blood Type Antibody Screen BBK History Checked 04/09/18 04/09/18 04/09/18 07:10 10:00 11:11 WBC RBC Hgb Hct MCV MCH MCHC RDW Plt Count MPV Neut % (Auto) Lymph % (Auto) Addison % (Auto) Eos % (Auto) Baso % (Auto) Neut # (Auto) Lymph # (Auto) Addison # (Auto) Eos # (Auto) Baso # (Auto) Neutrophils % (Manual) Lymphocytes % (Manual) Reactive Lymphs % Monocytes % (Manual) Eosinophils % (Manual) Basophils % (Manual) Platelet Estimate Hypochromasia (manual) Stomatocytes PT INR APTT Sodium Potassium Chloride Carbon Dioxide Anion Gap BUN Creatinine Est GFR ( Amer) Est GFR (Non-Af Amer) POC Glucose (mg/dL) 259 H Random Glucose Calcium Total Bilirubin AST ALT Alkaline Phosphatase Troponin I 0.0280 Total Protein Albumin Globulin Albumin/Globulin Ratio Lipase Urine Color Yellow Urine Clarity Slighty-cloudy Urine pH 6.0 Ur Specific Cotton 1.012 Urine Protein >=500 Urine Glucose (UA) >=500 Urine Ketones Trace Urine Blood Negative Urine Nitrate Negative Urine Bilirubin Negative Urine Urobilinogen 0.2-1.0 Ur Leukocyte Esterase Neg Urine RBC (Auto) 3 Urine Microscopic WBC 1 Ur Squamous Epith Cells < 1 Hyaline Casts 0-2 Blood Type Antibody Screen BBK History Checked 04/09/18 15:40 WBC RBC Hgb Hct MCV MCH MCHC RDW Plt Count MPV Neut % (Auto) Lymph % (Auto) Addison % (Auto) Eos % (Auto) Baso % (Auto) Neut # (Auto) Lymph # (Auto) Addison # (Auto) Eos # (Auto) Baso # (Auto) Neutrophils % (Manual) Lymphocytes % (Manual) Reactive Lymphs % Monocytes % (Manual) Eosinophils % (Manual) Basophils % (Manual) Platelet Estimate Hypochromasia (manual) Stomatocytes PT INR APTT Sodium Potassium Chloride Carbon Dioxide Anion Gap BUN Creatinine Est GFR ( Amer) Est GFR (Non-Af Amer) POC Glucose (mg/dL) Random Glucose Calcium Total Bilirubin AST ALT Alkaline Phosphatase Troponin I 0.0300 Total Protein Albumin Globulin Albumin/Globulin Ratio Lipase Urine Color Urine Clarity Urine pH Ur Specific Cotton Urine Protein Urine Glucose (UA) Urine Ketones Urine Blood Urine Nitrate Urine Bilirubin Urine Urobilinogen Ur Leukocyte Esterase Urine RBC (Auto) Urine Microscopic WBC Ur Squamous Epith Cells Hyaline Casts Blood Type Antibody Screen BBK History Checked Assessment & Plan - Assessment and Plan (Free Text) Assessment: 82 year old male with extensive PMHx was evaluated for subacute right 4th and 5th metatarsal neck fracture Plan: Patient seen and evaluated Discussed patient in details with attending Dr. Mcclain Labs, vitals and charts reviewed X-rays of the foot ordered/reviewed - Neck of the 4th and 5th metatarsal appears mildly displaced laterally with radiodense sclerosis and periosteal reaction consistent with bone callus formation and aries consolidation - Fracture fragments appears approx 3-4 weeks old at this time Rodríguez compression dressing applied to the RLE Surgical shoe provided - patient to weight bear to the heel as tolerated in a surgical shoe No surgical intervention at this time - will treat the fracture conservatively Before discharge, patient will need a prescription for a CAM boot walker Follow up with Dr. Mcclain in podiatry clinic upon discharge from the hospital Thank you for the podiatry consult and allowing to take part in patient care - Date & Time Date: 04/09/18 Time: 18:10
[2018-04-09] MEDS: Pravastatin Sodium 40 MG TAB PO SCH (21:40)
[2018-04-09] MEDS: Latanoprost 0.005% Opht SOUTION OU SCH (21:41)
[2018-04-10 07:01] LABS: BASO % 0.6 % (0.0-2.0); EOS # 0.4 K/uL (0.0-0.7); EOS % 5.7 % (0.0-4.0); HEMOGLOBIN 11.7 g/dL (12.0-18.0); LYMPH # 0.8 K/uL (1.0-4.3); LYMPH % 12.6 % (20.0-40.0); MEAN CELL VOLUME 94.4 fl (80.0-94.0); MEAN CORPUSCULAR HEMOGLOBIN 31.2 pg (27.0-31.0); MEAN CORPUSCULAR HGB CONC 33.1 g/dL (33.0-37.0); MEAN PLATELET VOLUME 9.7 fl (7.2-11.7); MONO # 1.1 K/uL (0.0-0.8); MONO % 17.9 % (0.0-10.0); NEUT % 63.2 % (50.0-75.0); RBC 3.74 Mil/uL (4.40-5.90); RED CELL DISTRIBUTION WIDTH 14.4 % (11.5-14.5); WHITE BLOOD COUNT 6.3 K/uL (4.8-10.8)
[2018-04-10 07:23] LABS: IRON 27 ug/dL (49-181)
[2018-04-10 07:26] LABS: BLOOD UREA NITROGEN 59 mg/dl (9-20); CALCIUM 8.7 mg/dL (8.4-10.2); GFR AFRICAN-AMERICAN 23; GFR NON-AFRICAN AMERICAN 19; HDL CHOLESTEROL 44 MG/DL (30-70)
[2018-04-10 07:32] LABS: LDL CHOLESTEROL 68 mg/dL (0-129)
[2018-04-10 07:33] LABS: % IRON SATURATION 11 % (20-55); TOTAL IRON BINDING CAPACITY 255 ug/dL (250-450)
[2018-04-10] MEDS: Fluticasone-Salmeterol 100-50mcg Diskus INH SCH ×2 (09:17→21:35)
[2018-04-10] MEDS: Insulin Lispro Mix 75/25 100 units/ml (HumaLog) 10ml SC SCH ×2 (09:18→17:55)
[2018-04-10] MEDS: Multivitamin Vitamin B Complex (Nephro-Vite) Tab PO SCH (09:19)
[2018-04-10] MEDS: Sodium Chloride 0.9% 1,000 ML IV SCH ×2 (09:32→21:50)
--- NOTE | 2018-04-10 13:40 | CP.PCM.HP ---
History of Present Illness - History of Present Illness History of Present Illness: CC: Chest Pain History of Present Illness: A 82 year old male was sent from [facility], complaining of chest pain for two days, nausea/vomiting black material, cough with a productive yellow sputum, broke 5th right toe on Wednesday while getting out of bed, and abdominal pain. Denies constipation and diarrhea. Past Patient History - Infectious Disease Hx of Infectious Diseases: None - Past Medical History & Family History Past Medical History?: Yes - Past Social History Smoking Status: Never Smoked - CARDIAC Hx Cardiac Disorders: Yes - PULMONARY Hx Respiratory Disorders: Yes - NEUROLOGICAL Hx Neurological Disorder: Yes - HEENT Hx HEENT Problems: Yes - RENAL Hx Chronic Kidney Disease: Yes - ENDOCRINE/METABOLIC Hx Endocrine Disorders: Yes - HEMATOLOGICAL/ONCOLOGICAL Hx Blood Disorders: Yes - INTEGUMENTARY Hx Dermatological Problems: No - MUSCULOSKELETAL/RHEUMATOLOGICAL Hx Musculoskeletal Disorders: Yes - GASTROINTESTINAL Hx Gall Bladder Disease: Yes - GENITOURINARY/GYNECOLOGICAL Hx Genitourinary Disorders: No - PSYCHIATRIC Hx Psychophysiologic Disorder: Yes - SURGICAL HISTORY Hx Appendectomy: Yes Hx Cholecystectomy: Yes Hx Coronary Artery Bypass Graft: Yes - ANESTHESIA Hx Anesthesia: Yes Hx Anesthesia Reactions: No Hx Malignant Hyperthermia: No Has any member of the family had a problem w/ anesthesia?: No Meds Allergies/Adverse Reactions: Allergies Allergy/AdvReac Type Severity Reaction Status Date / Time No Known Allergies Allergy Verified 02/13/17 09:28 Results - Vital Signs Recent Vital Signs: Last Vital Signs Temp 98.4 F 04/10/18 12:05 Pulse 74 04/10/18 12:05 Resp 18 04/10/18 12:05 BP 101/63 04/10/18 12:05 Pulse Ox 98 04/10/18 12:05 - Labs Result Diagrams: 04/10/18 06:10 04/10/18 06:10 Labs: Laboratory Results - last 24 hr 04/09/18 04/09/18 04/09/18 15:40 15:46 21:10 WBC RBC Hgb Hct MCV MCH MCHC RDW Plt Count MPV Neut % (Auto) Lymph % (Auto) Maries % (Auto) Eos % (Auto) Baso % (Auto) Neut # (Auto) Lymph # (Auto) Maries # (Auto) Eos # (Auto) Baso # (Auto) Retic Count Sodium Potassium Chloride Carbon Dioxide Anion Gap BUN Creatinine Est GFR ( Amer) Est GFR (Non-Af Amer) POC Glucose (mg/dL) 147 H 146 H Random Glucose Calcium Iron TIBC % Saturation Ferritin Troponin I 0.0300 Triglycerides Cholesterol LDL Cholesterol Direct HDL Cholesterol Vitamin B12 04/10/18 04/10/18 04/10/18 05:33 06:10 06:10 WBC 6.3 RBC 3.74 L Hgb 11.7 L Hct 35.3 MCV 94.4 H MCH 31.2 H MCHC 33.1 RDW 14.4 Plt Count 173 MPV 9.7 Neut % (Auto) 63.2 Lymph % (Auto) 12.6 L Maries % (Auto) 17.9 H Eos % (Auto) 5.7 H Baso % (Auto) 0.6 Neut # (Auto) 4.0 Lymph # (Auto) 0.8 L Maries # (Auto) 1.1 H Eos # (Auto) 0.4 Baso # (Auto) 0.0 Retic Count Sodium 139 Potassium 4.2 Chloride 101 Carbon Dioxide 23 Anion Gap 19 BUN 59 H Creatinine 3.2 H Est GFR ( Amer) 23 Est GFR (Non-Af Amer) 19 POC Glucose (mg/dL) 159 H Random Glucose 169 H Calcium 8.7 Iron TIBC % Saturation Ferritin 144.0 Troponin I Triglycerides 161 H D Cholesterol 149 LDL Cholesterol Direct 68 HDL Cholesterol 44 Vitamin B12 366 04/10/18 04/10/18 04/10/18 06:10 06:10 10:32 WBC RBC Hgb Hct MCV MCH MCHC RDW Plt Count MPV Neut % (Auto) Lymph % (Auto) Maries % (Auto) Eos % (Auto) Baso % (Auto) Neut # (Auto) Lymph # (Auto) Maries # (Auto) Eos # (Auto) Baso # (Auto) Retic Count 1.4 Sodium Potassium Chloride Carbon Dioxide Anion Gap BUN Creatinine Est GFR ( Amer) Est GFR (Non-Af Amer) POC Glucose (mg/dL) 295 H Random Glucose Calcium Iron 27 L TIBC 255 % Saturation 11 L Ferritin Troponin I Triglycerides Cholesterol LDL Cholesterol Direct HDL Cholesterol Vitamin B12 Assessment & Plan (1) Chest pain Status: Acute (2) Foot fracture Status: Acute
[2018-04-10] MEDS: Pravastatin Sodium 40 MG TAB PO SCH (21:37)
[2018-04-10] MEDS: Latanoprost 0.005% Opht SOUTION OU SCH (21:38)
--- NOTE | 2018-04-10 21:48 | CP.PCM.PN ---
Subjective - Date & Time of Evaluation Date of Evaluation: 04/10/18 Time of Evaluation: 17:15 Objective - Vital Signs/Intake and Output Vital Signs (last 24 hours): Temp Pulse Resp BP Pulse Ox 98.8 F 76 18 102/61 95 04/10/18 20:52 04/10/18 20:52 04/10/18 20:52 04/10/18 20:52 04/10/18 20:52 - Medications Medications: Current Medications Acetaminophen (Tylenol 325mg Tab) 650 mg PO Q4 PRN PRN Reason: Pain, Mild (1-3) Last Admin: 04/10/18 07:03 Dose: 650 mg Albuterol/Ipratropium (Duoneb 3 Mg/0.5 Mg (3 Ml) Ud) 3 ml INH Q6 PRN PRN Reason: Shortness of Breath Amlodipine Besylate (Norvasc) 5 mg PO DAILY [facility] Last Admin: 04/10/18 09:35 Dose: Not Given Aspirin (Ecotrin) 81 mg PO DAILY [facility] Last Admin: 04/10/18 09:17 Dose: 81 mg Calcitriol (Rocaltrol) 0.25 mcg PO DAILY [facility] Last Admin: 04/10/18 09:36 Dose: 0.25 mcg Clopidogrel Bisulfate (Plavix) 75 mg PO DAILY [facility] Last Admin: 04/10/18 09:19 Dose: 75 mg Docusate Sodium (Colace) 100 mg PO BID [facility] Last Admin: 04/10/18 16:45 Dose: 100 mg Epoetin Chapito (Procrit) 4,000 unit SC MWF [facility] Ferrous Sulfate (Feosol) 325 mg PO DAILY [facility] Last Admin: 04/10/18 09:15 Dose: 325 mg Heparin Sodium (Porcine) (Heparin) 5,000 units SC Q8 [facility] PRN Reason: Protocol Last Admin: 04/10/18 16:44 Dose: 5,000 units Home Med (Menthol [Icy Hot]) 1 patch TOP Q12 [facility] Home Med (Vortioxetine Hydrobromide [Trintellix]) 5 mg PO DAILY [facility] Sodium Chloride (Sodium Chloride 0.9%) 1,000 mls @ 100 mls/hr IV .Q10H [facility] Stop: 04/11/18 08:39 Last Admin: 04/10/18 09:32 Dose: 100 mls/hr Insulin Lispro Protam/Lispro Human (Humalog Mix 75/25) 9 units SC QPM [facility] Last Admin: 04/10/18 17:55 Dose: 9 units Insulin Lispro Protam/Lispro Human (Humalog Mix 75/25) 18 units SC BRK [facility] Last Admin: 04/10/18 09:18 Dose: 18 units Latanoprost (Xalatan Opht) 1 drop OU HS [facility] Last Admin: 04/10/18 21:38 Dose: 1 drop Lisinopril (Zestril) 10 mg PO DAILY [facility] Last Admin: 04/10/18 09:36 Dose: Not Given Metoprolol Tartrate (Lopressor) 50 mg PO BID [facility] Last Admin: 04/10/18 16:45 Dose: 50 mg Pravastatin Sodium (Pravachol) 80 mg PO HS [facility] Last Admin: 04/10/18 21:37 Dose: 80 mg Fluticasone/Salmeterol (Advair Diskus 100/50) 1 puff INH Q12 [facility] Last Admin: 04/10/18 21:35 Dose: 1 puff Vitamin B Complex/Vit C/Folic Acid (Nephro-Zacarias) 1 tab PO DAILY [facility] Last Admin: 04/10/18 09:19 Dose: 1 tab - Labs Labs: 04/10/18 06:10 04/10/18 06:10 PT 11.9 Seconds (9.8-13.1) 04/08/18 21:11 INR 1.1 (0.9-1.2) 04/08/18 21:11 APTT 29.5 Seconds (25.6-37.1) 04/08/18 21:11
[2018-04-11] MEDS: Insulin Lispro Mix 75/25 100 units/ml (HumaLog) 10ml SC SCH ×2 (08:04→17:46)
[2018-04-11] MEDS ORDERED: Epoetin Alfa 4000 UNIT/ML Inj SC SCH (09:00)
[2018-04-11] MEDS: Fluticasone-Salmeterol 100-50mcg Diskus INH SCH ×2 (10:00→21:19)
[2018-04-11] MEDS: Multivitamin Vitamin B Complex (Nephro-Vite) Tab PO SCH (13:52)
[2018-04-11] MEDS: Albuterol-Ipratrop 3 mg / 0.5 (3 ml) UD INH SCH ×3 (16:10→21:55)
[2018-04-11 17:39] LABS: FOLATE > 20.0 ng/mL
[2018-04-11] MEDS: Pravastatin Sodium 40 MG TAB PO SCH (21:20)
[2018-04-11] MEDS: Latanoprost 0.005% Opht SOUTION OU SCH (21:20)
[2018-04-12 00:10] VITALS: RESP 18; O2SAT 98
[2018-04-12] MEDS: Albuterol-Ipratrop 3 mg / 0.5 (3 ml) UD INH SCH ×4 (01:02→13:33)
--- NOTE | 2018-04-12 05:24 | CP.PCM.PN ---
Subjective - Date & Time of Evaluation Date of Evaluation: 04/11/18 Time of Evaluation: 15:25 Objective - Vital Signs/Intake and Output Vital Signs (last 24 hours): Temp Pulse Resp BP Pulse Ox 97.0 F L 60 18 158/81 H 98 04/12/18 00:10 04/12/18 00:10 04/12/18 00:10 04/12/18 00:10 04/12/18 00:10 - Medications Medications: Current Medications Acetaminophen (Tylenol 325mg Tab) 650 mg PO Q4 PRN PRN Reason: Pain, Mild (1-3) Last Admin: 04/11/18 03:39 Dose: 650 mg Albuterol/Ipratropium (Duoneb 3 Mg/0.5 Mg (3 Ml) Ud) 3 ml INH RQ6 [facility] Last Admin: 04/12/18 01:02 Dose: 3 ml Amlodipine Besylate (Norvasc) 5 mg PO DAILY [facility] Last Admin: 04/11/18 10:01 Dose: 5 mg Aspirin (Ecotrin) 81 mg PO DAILY [facility] Last Admin: 04/11/18 10:01 Dose: 81 mg Calcitriol (Rocaltrol) 0.25 mcg PO DAILY [facility] Last Admin: 04/11/18 10:00 Dose: 0.25 mcg Clopidogrel Bisulfate (Plavix) 75 mg PO DAILY [facility] Last Admin: 04/11/18 10:03 Dose: 75 mg Docusate Sodium (Colace) 100 mg PO BID [facility] Last Admin: 04/11/18 17:46 Dose: 100 mg Epoetin Chapito (Procrit) 4,000 unit SC MWF [facility] Last Admin: 04/11/18 10:10 Dose: 4,000 unit Ferrous Sulfate (Feosol) 325 mg PO DAILY [facility] Last Admin: 04/11/18 10:01 Dose: 325 mg Heparin Sodium (Porcine) (Heparin) 5,000 units SC Q8 [facility] PRN Reason: Protocol Last Admin: 04/12/18 00:19 Dose: 5,000 units Insulin Lispro Protam/Lispro Human (Humalog Mix 75/25) 9 units SC QPM [facility] Last Admin: 04/11/18 17:46 Dose: 9 units Insulin Lispro Protam/Lispro Human (Humalog Mix 75/25) 18 units SC BRK [facility] Last Admin: 05/21/18 08:04 Dose: Not Given Latanoprost (Xalatan Opht) 1 drop OU HS [facility] Last Admin: 04/11/18 21:20 Dose: 1 drop Lisinopril (Zestril) 10 mg PO DAILY [facility] Last Admin: 04/11/18 10:03 Dose: 10 mg Metoprolol Tartrate (Lopressor) 50 mg PO BID [facility] Last Admin: 04/11/18 17:45 Dose: 50 mg Pravastatin Sodium (Pravachol) 80 mg PO HS [facility] Last Admin: 04/11/18 21:20 Dose: 80 mg Fluticasone/Salmeterol (Advair Diskus 100/50) 1 puff INH Q12 [facility] Last Admin: 04/11/18 21:19 Dose: 1 puff Vitamin B Complex/Vit C/Folic Acid (Nephro-Zacarias) 1 tab PO DAILY [facility] Last Admin: 04/11/18 13:52 Dose: 1 tab - Labs Labs: 04/10/18 06:10 04/10/18 06:10 PT 11.9 Seconds (9.8-13.1) 04/08/18 21:11 INR 1.1 (0.9-1.2) 04/08/18 21:11 APTT 29.5 Seconds (25.6-37.1) 04/08/18 21:11 Assessment and Plan (1) Chest pain Status: Acute (2) Foot fracture Status: Acute
[2018-04-12 05:41] LABS: MEAN CELL VOLUME 93.7 fl (80.0-94.0); MEAN CORPUSCULAR HEMOGLOBIN 31.3 pg (27.0-31.0); MEAN CORPUSCULAR HGB CONC 33.4 g/dL (33.0-37.0); RBC 3.51 Mil/uL (4.40-5.90); RED CELL DISTRIBUTION WIDTH 14.1 % (11.5-14.5); WHITE BLOOD COUNT 5.8 K/uL (4.8-10.8)
[2018-04-12 07:47] VITALS: PULSE 71
--- NOTE | 2018-04-12 08:25 | CARD ---
APPROVED REPORT EXAM: Two-dimensional and M-mode echocardiogram with Doppler and color Doppler. Other Information Quality : FairRhythm : NSR Technically limited study due to POOR ECHO WINDOW INDICATION Chest Pain Surgery/Intervention CABD DIMENSIONS IVSd1.02 (0.7-1.1cm)LVDd4.83 (3.9-5.9cm) PWd0.89 (0.7-1.1cm)IVSs1.12 (0.8-1.2cm) LVDs3.93 (2.5-4.0cm)FS (%) 18.6 % PWs1.23 (0.8-1.2cm) M-Mode DIMENSIONS Left Atrium (MM)3.71 (2.5-4.0cm)Aortic Root3.86 (2.2-3.7cm) Aortic Cusp Exc.1.58 (1.5-2.0cm) Mitral Valve MV E Jrlviqbv63.8cm/sMV DECEL [id number] A Oofoenvq99.1cm/s MV [id number] ratio0.8MVA (PHT)1.91cm2 TDI Lateral E' Peak V4.32cm/sMedial E' Peak V4.32cm/sE/Lateral E'12.7 E/Medial E'12.7 LEFT VENTRICLE The left ventricle is normal size. There is normal left ventricular wall thickness. LVEF appeared adequate. Individual segmental wall motion could not be assesed. Transmitral Doppler flow pattern is Grade I-abnormal relaxation pattern. RIGHT VENTRICLE The right ventricle is normal size. The right ventricular systolic function is normal. ATRIA The left atrium size is normal. The right atrium size is normal. AORTIC VALVE The aortic valve is mildly sclerotic. There is mild aortic regurgitation. There is no aortic valvular stenosis. MITRAL VALVE The mitral valve is normal in structure. There is no mitral valve stenosis. There is no mitral valve regurgitation noted. TRICUSPID VALVE The tricuspid valve is normal in structure. There is no tricuspid valve regurgitation noted. PULMONIC VALVE The pulmonary valve is normal in structure. There is no pulmonic valvular regurgitation. GREAT VESSELS The aortic root is normal in size. The IVC was not visualized. PERICARDIAL EFFUSION The pericardium appears normal. <Conclusion> Quality of images was extremely poor and individual segmental wall motion could not be assesed. The left ventricle is normal size. There is normal left ventricular wall thickness. Individual segmental wall motion could not be assesed. LVEF appeared adequate. Transmitral Doppler flow pattern is Grade I-abnormal relaxation pattern.
[2018-04-12] MEDS: Fluticasone-Salmeterol 100-50mcg Diskus INH SCH (09:28)
[2018-04-12] MEDS: Multivitamin Vitamin B Complex (Nephro-Vite) Tab PO SCH (09:29)
[2018-04-12] MEDS: Insulin Lispro Mix 75/25 100 units/ml (HumaLog) 10ml SC SCH (09:33)
--- NOTE | 2018-04-12 10:35 | PQF GENQUE ---
Dr. Edgar, Please clarify the stage of the chronic kidney disease: if known Stage 1 Stage 2 (mild) Stage 3 (moderate) Stage 4 (severe) Stage 5 Other (please specify) Clinically unable to determine Unknown BUN:57->59 Creatinine:3.2->3.2 Est GFR ( Amer/Non -Af Amer): -> ER: Clinical Impression:Chest pain, Bronchitis, Vomiting, Foot fracture POA: Poor Glycemic Control H and P: sent from [facility], complaining of chest pain for 2 days , N/V black material, cough with a productive yellow sputum, broke 5th rt. toe on Wednesday while getting out of bed, and abdominal pain. Hx. includes: CKD Assessment : (1) Chest pain Status: Acute (2) Foot fracture Status: Acute This form is a permanent part of the medical record Clarification of your documentation is requested to better reflect the severity of illness and intensity of treatment of your patient. Indicators present [] Specify: [] [] Specify: [] [] Specify: [] [] Specify: [] Location in the medical record that reflects the above clinical findings: [] Treatment Provided: [] PHYSICIAN'S RESPONSE Based on your medical judgment of the clinical indicators outlined above please clarify the following: [] Practitioner response [] If unable to determine, please check the box, sign and date. Present On Admission (POA) Indicator: [] Present at the time of admission [] Not present at the time of admission [] Clinically Undetermined In responding to this query, please exercise your independent professional judgment. The fact that a question is asked does not imply that any particular answer is desired or expected. Thank you for your clarification on this documentation. If you have any questions please call. * Thank you, Delia Boston RN ext. #[phone] MTDD
--- NOTE | 2018-04-12 10:49 | PQF GENQUE ---
Dr. Edgar, 3 queries as follows: Please clarify type of asthma: if in agreement versus Asthma ruled out 1A. If Asthma ruled in :Type :if known Mild intermittent Mild persistent Moderate persistent Severe persistent 1 1B. Severity of Asthma: if known: i.e. In Exacerbation or Uncomplicated etc. 2 . With Bronchitis(please clarify acuity of Bronchitis) versus Bronchitis ruled out? 3A With COPD or COPD ruled out? 3B. Please clarify the Acuity of COPD: Stable versus Exacerbation versus ruled out? OR Other (please specify) OR Clinically unable to determine OR Unknown 04/09 CXR: Impression: No active disease. ER note:sent from [facility], complaining of chest pain for two days, nausea/vomiting black material, cough with a productive yellow sputum, broke 5th right toe on Wednesday while getting out of bed, and abdominal pain. Clinical Impression :Chest pain,Bronchitis,Vomiting, Foot fracture ; POA: Poor Glycemic Control ER note and draft Podiatry note: hx. Asthma, COPD Albuterol INH q6prn, Advair Diskus 1 puff INH q 12 This form is a permanent part of the medical record Clarification of your documentation is requested to better reflect the severity of illness and intensity of treatment of your patient. Indicators present [] Specify: [] [] Specify: [] [] Specify: [] [] Specify: [] Location in the medical record that reflects the above clinical findings: [] Treatment Provided: [] PHYSICIAN'S RESPONSE Based on your medical judgment of the clinical indicators outlined above please clarify the following: [] Practitioner response [] If unable to determine, please check the box, sign and date. Present On Admission (POA) Indicator: [] Present at the time of admission [] Not present at the time of admission [] Clinically Undetermined In responding to this query, please exercise your independent professional judgment. The fact that a question is asked does not imply that any particular answer is desired or expected. Thank you for your clarification on this documentation. If you have any questions please call. * Thank you, Delia Boston RN ext. #[phone] MTDD
--- NOTE | 2018-04-12 10:58 | PQF GENQUE ---
Dr. Edgar, Please provide the underlying diagnosis causing the patient's documented symptom : if known ;Patient admitted with Chest Pain OR: Unable to determine OR:Other explanation of clinical finding Troponins: 0.0220->0.0280->0.0300 H and P: 82 year old male was sent from [facility], complaining of chest pain for two days, nausea/vomiting black material, cough with a productive yellow sputum, broke 5th right toe on Wednesday while getting out of bed, and abdominal pain. Assessment Plan : (1) Chest pain Status: Acute (2) Foot fracture Status: Acute This form is a permanent part of the medical record Clarification of your documentation is requested to better reflect the severity of illness and intensity of treatment of your patient. Indicators present [] Specify: [] [] Specify: [] [] Specify: [] [] Specify: [] Location in the medical record that reflects the above clinical findings: [] Treatment Provided: [] PHYSICIAN'S RESPONSE Based on your medical judgment of the clinical indicators outlined above please clarify the following: [] Practitioner response [] If unable to determine, please check the box, sign and date. Present On Admission (POA) Indicator: [] Present at the time of admission [] Not present at the time of admission [] Clinically Undetermined In responding to this query, please exercise your independent professional judgment. The fact that a question is asked does not imply that any particular answer is desired or expected. Thank you for your clarification on this documentation. If you have any questions please call. * Thank you, Delia Boston RN ext. #[phone] MTDD
--- NOTE | 2018-04-12 11:23 | CARD ---
APPROVED REPORT EKG Measurement Heart [id number] <Conclusion> Atrial fibrillation Nonspecific T wave abnormality Abnormal ECG
[2018-04-12 12:28] VITALS: BP 110/65; TEMP 98
--- NOTE | 2018-04-15 01:43 | CP.PCM.DIS ---
Provider - Provider Date of Admission: 04/08/18 23:53 Attending physician: Keke Edgar MD Time Spent in preparation of Discharge (in minutes): 25 Diagnosis - Discharge Diagnosis (1) Chest pain Status: Acute (2) Foot fracture Status: Acute Hospital Course - Lab Results Lab Results: Micro Results 04/08/18 22:00 Blood Blood Culture - Final NO GROWTH AFTER 5 DAYS 04/08/18 22:00 Blood Gram Stain - Final TEST NOT PERFORMED 04/08/18 21:06 Blood Blood Culture - Final NO GROWTH AFTER 5 DAYS 04/08/18 21:06 Blood Gram Stain - Final TEST NOT PERFORMED Most Recent Lab Values WBC 5.8 K/uL (4.8-10.8) 04/12/18 04:20 RBC 3.51 Mil/uL (4.40-5.90) L 04/12/18 04:20 Hgb 11.0 g/dL (12.0-18.0) L 04/12/18 04:20 Hct 32.9 % (35.0-51.0) L 04/12/18 04:20 MCV 93.7 fl (80.0-94.0) 04/12/18 04:20 MCH 31.3 pg (27.0-31.0) H 04/12/18 04:20 MCHC 33.4 g/dL (33.0-37.0) 04/12/18 04:20 RDW 14.1 % (11.5-14.5) 04/12/18 04:20 Plt Count 169 K/uL (130-400) 04/12/18 04:20 MPV 9.7 fl (7.2-11.7) 04/10/18 06:10 Neut % (Auto) 63.2 % (50.0-75.0) 04/10/18 06:10 Lymph % (Auto) 12.6 % (20.0-40.0) L 04/10/18 06:10 [place] % (Auto) 17.9 % (0.0-10.0) H 04/10/18 06:10 Eos % (Auto) 5.7 % (0.0-4.0) H 04/10/18 06:10 Baso % (Auto) 0.6 % (0.0-2.0) 04/10/18 06:10 Neut # (Auto) 4.0 K/uL (1.8-7.0) 04/10/18 06:10 Lymph # (Auto) 0.8 K/uL (1.0-4.3) L 04/10/18 06:10 [place] # (Auto) 1.1 K/uL (0.0-0.8) H 04/10/18 06:10 Eos # (Auto) 0.4 K/uL (0.0-0.7) 04/10/18 06:10 Baso # (Auto) 0.0 K/uL (0.0-0.2) 04/10/18 06:10 Neutrophils % (Manual) 84 % (42-75) H 04/08/18 21:11 Lymphocytes % (Manual) 5 % (20-50) L 04/08/18 21:11 Reactive Lymphs % 1 % (0-0) H 04/08/18 21:11 Monocytes % (Manual) 7 % (0-10) 04/08/18 21:11 Eosinophils % (Manual) 1 % (0-7) 04/08/18 21:11 Basophils % (Manual) 2 % (0-2) 04/08/18 21:11 Platelet Estimate Normal (NORMAL) 04/08/18 21:11 Hypochromasia (manual) Slight 04/08/18 21:11 Stomatocytes Slight 04/08/18 21:11 Retic Count 1.4 % (0.5-1.5) 04/10/18 06:10 PT 11.9 Seconds (9.8-13.1) 04/08/18 21:11 INR 1.1 (0.9-1.2) 04/08/18 21:11 APTT 29.5 Seconds (25.6-37.1) 04/08/18 21:11 Sodium 139 mmol/l (132-148) 04/10/18 06:10 Potassium 4.2 MMOL/L (3.6-5.0) 04/10/18 06:10 Chloride 101 mmol/L (98-107) 04/10/18 06:10 Carbon Dioxide 23 mmol/L (22-30) 04/10/18 06:10 Anion Gap 19 (10-20) 04/10/18 06:10 BUN 59 mg/dl (9-20) H 04/10/18 06:10 Creatinine 3.2 mg/dl (0.8-1.5) H 04/10/18 06:10 Est GFR ( Amer) 23 04/10/18 06:10 Est GFR (Non-Af Amer) 04/10/18 06:10 POC Glucose (mg/dL) 249 mg/dL (65-110) H 04/12/18 10:39 Random Glucose 169 mg/dL (75-110) H 04/10/18 06:10 Hemoglobin A1c 7.8 % (4.2-6.5) H 04/10/18 06:10 Calcium 8.7 mg/dL (8.4-10.2) 04/10/18 06:10 Iron 27 ug/dL (49-181) L 04/10/18 06:10 TIBC 255 ug/dL (250-450) 04/10/18 06:10 % Saturation 11 % (20-55) L 04/10/18 06:10 Ferritin 144.0 ng/Ml (17.9-464) 04/10/18 06:10 Total Bilirubin 0.4 mg/dl (0.2-1.3) 04/08/18 21:11 AST 22 U/L (17-59) 04/08/18 21:11 ALT 36 U/L (21-72) 04/08/18 21:11 Alkaline Phosphatase 55 U/L (38-126) 04/08/18 21:11 Troponin I 0.0300 ng/mL (0.00-0.120) 04/09/18 15:40 NT-Pro-B Natriuret Pep 5240 pg/ml (0-900) H 04/12/18 04:20 Total Protein 7.2 G/DL (6.3-8.2) 04/08/18 21:11 Albumin 3.7 g/dL (3.5-5.0) 04/08/18 21:11 Globulin 3.5 gm/dL (2.2-3.9) 04/08/18 21:11 Albumin/Globulin Ratio 1.1 (1.0-2.1) 04/08/18 21:11 Triglycerides 161 mg/DL (0-149) H D 04/10/18 06:10 Cholesterol 149 mg/dL (0-199) 04/10/18 06:10 LDL Cholesterol Direct 68 mg/dL (0-129) 04/10/18 06:10 HDL Cholesterol 44 MG/DL (30-70) 04/10/18 06:10 Lipase 179 U/L (23-300) 04/08/18 21:11 Vitamin B12 366 pg/mL (239-931) 04/10/18 06:10 Folate > 20.0 ng/mL 04/10/18 06:10 Urine Color Yellow (YELLOW) 04/09/18 10:00 Urine Clarity Slighty-cloudy (Clear) 04/09/18 10:00 Urine pH 6.0 (5.0-8.0) 04/09/18 10:00 Ur Specific [place] 1.012 (1.003-1.030) 04/09/18 10:00 Urine Protein >=500 mg/dL (NEGATIVE) 04/09/18 10:00 Urine Glucose (UA) >=500 mg/dL (Normal) 04/09/18 10:00 Urine Ketones Trace mg/dL (NEGATIVE) 04/09/18 10:00 Urine Blood Negative (NEGATIVE) 04/09/18 10:00 Urine Nitrate Negative (NEGATIVE) 04/09/18 10:00 Urine Bilirubin Negative (NEGATIVE) 04/09/18 10:00 Urine Urobilinogen 0.2-1.0 mg/dL (0.2-1.0) 04/09/18 10:00 Ur Leukocyte Esterase Neg [place]/uL (Negative) 04/09/18 10:00 Urine RBC (Auto) 3 /hpf (0-3) 04/09/18 10:00 Urine Microscopic WBC 1 /hpf (0-5) 04/09/18 10:00 Ur Squamous Epith Cells < 1 /hpf (0-5) 04/09/18 10:00 Hyaline Casts 0-2 /hpf (0-2) 04/09/18 10:00 Blood Type O POSITIVE 04/08/18 21:00 Antibody Screen Negative 04/08/18 21:00 BBK History Checked No verified bt 04/08/18 21:00 Discharge Plan - Discharge Medications Prescriptions: Levofloxacin [Levaquin] 500 mg PO QOTHERDAY #4 tablet - Follow Up Plan Condition: STABLE Disposition: TRANSF TO SNF
== END 2018-04-12 15:17 | DRG 202 ==
LOC: H.ER 19:45 → H.ERHOLD 23:53 → H.TEL 04-09 03:06
PROVIDERS: ADMIT Internal Medicine; ATTEND Internal Medicine
PROC: 3E0234Z Introduction of Serum, Toxoid and Vaccine into Muscle, Percutaneous Approach (ICD-10-PCS; principal; 2018-04-09)
DX: J20.9 Acute bronchitis, unspecified (principal); M48.54XA Collapsed vertebra, not elsewhere classified, thoracic region, initial encounter for fracture; N18.4 Chronic kidney disease, stage 4 (severe); S92.341A Displaced fracture of fourth metatarsal bone, right foot, initial encounter for closed fracture; Y93.9 Activity, unspecified; Y92.9 Unspecified place or not applicable; Z79.02 Long term (current) use of antithrombotics/antiplatelets; Z79.4 Long term (current) use of insulin; Z79.51 Long term (current) use of inhaled steroids; Z79.82 Long term (current) use of aspirin; Z79.899 Other long term (current) drug therapy; Z86.73 Personal history of transient ischemic attack (TIA), and cerebral infarction without residual deficits; Z87.891 Personal history of nicotine dependence; E11.22 Type 2 diabetes mellitus with diabetic chronic kidney disease; E78.00 Pure hypercholesterolemia, unspecified; E78.5 Hyperlipidemia, unspecified; I12.9 Hypertensive chronic kidney disease with stage 1 through stage 4 chronic kidney disease, or unspecified chronic kidney disease; I25.10 Atherosclerotic heart disease of native coronary artery without angina pectoris; K40.90 Unilateral inguinal hernia, without obstruction or gangrene, not specified as recurrent; K57.90 Diverticulosis of intestine, part unspecified, without perforation or abscess without bleeding; M85.80 Other specified disorders of bone density and structure, unspecified site; N28.1 Cyst of kidney, acquired; Z90.49 Acquired absence of other specified parts of digestive tract; Z95.1 Presence of aortocoronary bypass graft; F45.9 Somatoform disorder, unspecified; Z23 Encounter for immunization; W22.8XXA Striking against or struck by other objects, initial encounter

== ENCOUNTER 2018-11-29 03:05 | Inpatient (IN) | payer MEDICARE, OTHER ==
[2018-11-29 03:09] VITALS: BMI 28.1
[2018-11-29] MEDS ORDERED: Sodium Chloride 0.9% 1,000 ML IV STA ×2 (03:14→03:28)
[2018-11-29] MEDS ORDERED: Albuterol-Ipratrop 3 mg / 0.5 (3 ml) UD INH STA (03:14)
[2018-11-29] MEDS ORDERED: Albuterol-Ipratrop 3 mg / 0.5 (3 ml) UD ONE (03:25)
[2018-11-29] MEDS ORDERED: Piperacillin/Tazobact 3.375 GM in Sodium Chloride 0.9% 100 ML IVPB STA (03:28)
[2018-11-29 03:31] LABS: ABG ALLEN TEST YES; ARTERIAL BLOOD GAS HCO3 3.9 mmol/L (21-28); ARTERIAL BLOOD GAS O2 SAT 76.8 % (95-98); ARTERIAL BLOOD GAS PCO2 17 mm/Hg (35-45); ARTERIAL BLOOD GAS PO2 47 mm/Hg (80-100); ARTERIAL BLOOD GAS TCO2 4.7 mmol/L (22-28)
[2018-11-29] MEDS ORDERED: Vancomycin 1 g Inj ONE (03:33)
[2018-11-29 03:37] LABS: BASO # 0.1 K/uL (0.0-0.2); BASO % 0.3 % (0.0-2.0); HEMOGLOBIN 10.8 g/dL (12.0-18.0); LYMPH # 0.4 K/uL (1.0-4.3); LYMPH % 1.1 % (20.0-40.0); MEAN CORPUSCULAR HEMOGLOBIN 30.7 pg (27.0-31.0); MEAN CORPUSCULAR HGB CONC 30.7 g/dL (33.0-37.0); MEAN PLATELET VOLUME 10.4 fl (7.2-11.7); MONO # 0.7 K/uL (0.0-0.8); MONO % 2.4 % (0.0-10.0); NEUT # 30.5 K/uL (1.8-7.0); NEUT % 96.2 % (50.0-75.0); NRBC % 0.1 % (0.0-0.0); PLATELET COUNT 227 K/uL (130-400); WHITE BLOOD COUNT 31.7 K/uL (4.8-10.8)
--- NOTE | 2018-11-29 04:12 | ED PDOC ---
HPI: SOB/CHF/COPD Chief Complaint (Nursing): Respiratory Distress History Per: Patient History/Exam Limitations: no limitations Onset/Duration Of Symptoms: Hrs Current Symptoms Are (Timing): Still Present Additional Complaint(s): Hx of CAD, CABG, HTN, DM presenting from halfway with AMS, EMS reports that he was combative and hypotensive at the halfway today. Hx is limited by clinical condition. Past Medical History Reviewed: Historical Data, Nursing Documentation, Vital Signs Vital Signs: Last Vital Signs Temp 93.2 F L 11/29/18 03:20 Pulse 93 H 11/29/18 03:20 Resp 23 11/29/18 03:20 BP 88/61 L 11/29/18 03:20 Pulse Ox 100 11/29/18 03:20 - Medical History PMH: Anemia, Asthma, Bronchitis, COPD, CVA, Depression, Diabetes, Fractures ((R) 5th metatarsal fx), Gall Bladder Disease, HTN, Hypercholesterolemia, Pneumonia, Chronic Kidney Disease, TIA Denies: HIV - Surgical History Surgical History: Appendectomy, CABG, Cholecystectomy - Family History Family History: States: Unknown Family Hx - Immunization History Hx Tetanus Toxoid Vaccination: No Hx Influenza Vaccination: Yes Hx Pneumococcal Vaccination: No - Home Medications Home Medications: Ambulatory Orders Medication Instructions Recorded Clopidogrel [Plavix] 75 mg PO DAILY 06/07/15 Metoprolol Tartrate [Lopressor] 50 mg PO DAILY 01/17/16 Pravastatin Sodium [Pravachol] 80 mg PO HS 01/17/16 Lisinopril [Zestril] 10 mg PO DAILY tab 01/27/17 amLODIPine [Norvasc] 5 mg PO DAILY tab 01/27/17 Albuterol/Ipratropium [Duoneb 3 3 ml NEB Q6 PRN 02/13/17 mg/0.5 mg (3 ml) UD] Acetaminophen [Tylenol 325mg tab] 650 mg PO Q4 PRN 04/08/18 Aspirin [[place] Aspirin EC] 81 mg PO DAILY 04/08/18 Docusate [Colace] 100 mg PO BID 04/08/18 Epoetin [place] [Procrit] 4,000 unit SQ MWF 04/08/18 Ferrous Sulfate [Feosol] 325 mg PO DAILY 04/08/18 Folic Acid/Vit B Complex and C 1 tab PO DAILY 05/18/18 [Nephro-[place] Tablet] Insulin Lispro Protamin/Lispro 9 units SQ QPM 04/08/18 [Humalog Mix 75-25 Kwikpen] Insulin Lispro Protamin/Lispro 18 units SQ AC 04/08/18 [Humalog Mix 75-25 Kwikpen] Latanoprost 0.005% Opht [Xalatan 1 drop EACHEYE HS 04/08/18 Opht] Menthol [Icy Hot] 1 patch TOP Q12 04/08/18 Vortioxetine Hydrobromide 5 mg PO DAILY 04/08/18 [Trintellix] Calcitriol [Rocaltrol] 1 cap PO DAILY 11/29/18 - Allergies Allergies/Adverse Reactions: Allergies Allergy/AdvReac Type Severity Reaction Status Date / Time No Known Allergies Allergy Verified 11/29/18 04:23 Review of Systems Review Of Systems: ROS cannot be obtained secondary to pt's inabilty to answer questions. Physical Exam - Reviewed Nursing Documentation Reviewed: Yes Vital Signs Reviewed: Yes - Physical Exam Appears: Positive for: In Acute Distress Head Exam: Positive for: ATRAUMATIC Skin: Positive for: Pallor Eye Exam: Positive for: EOMI ENT: Positive for: Normal ENT Inspection Neck: Positive for: Normal, Painless ROM Cardiovascular/Chest: Positive for: Tachycardia Respiratory: Positive for: Accessory Muscle Use, Rhonchi, Respiratory Distress Gastrointestinal/Abdominal: Positive for: Normal Exam. Negative for: Tenderness Extremity: Positive for: Normal ROM Neurologic/Psych: Positive for: Other (Eyes open, staring off into space, does not follow commands). Negative for: Alert, land surveyor II-XII, Oriented, Motor/Sensory Deficits (Moves extremeties equally) - Laboratory Results Result Diagrams: 11/29/18 03:30 11/29/18 04:30 Lab Results: pCO2 17 mm/Hg (35-45) L* 11/29/18 03:25 pO2 47 mm/Hg (80-100) L 11/29/18 03:25 HCO3 3.9 mmol/L (21-28) L* 11/29/18 03:25 ABG pH 7.00 (7.35-7.45) L* 11/29/18 03:25 ABG Total CO2 4.7 mmol/L (22-28) L 11/29/18 03:25 ABG O2 Saturation 76.8 % (95-98) L 11/29/18 03:25 ABG Base Excess -25.5 mmol/L (-2.0-3.0) L 11/29/18 03:25 Kevin Test Yes 11/29/18 03:25 ABG Potassium 2.6 mmol/L (3.6-5.2) L 11/29/18 03:25 A-a O2 Difference 645.0 mm/Hg 11/29/18 03:25 Sodium 141.0 mmol/L (132-148) 11/29/18 03:25 Chloride 124.0 mmol/L (98-107) H 11/29/18 03:25 Glucose 130 mg/dL (75-110) H 11/29/18 03:25 Lactate 1.5 mmol/L (0.7-2.1) 11/29/18 03:25 FiO2 100.0 % 11/29/18 03:25 Crit Value Called To Dr coleman rosen 11/29/18 03:25 Crit Value Called By Ernesto 11/29/18 03:25 Crit Value Read Back Y 11/29/18 03:25 Blood Gas Notified Time 331 11/29/18 03:25 - ECG O2 Sat by Pulse Oximetry: 100 Pulse Ox Interpretation: Normal - Critical Care Total Time (In Min): 60 Documented Critical Care: Time excludes all time spent performint seperately billable procedures Medical Decision Making Medical Decision Makin83 year old presenting with AMS, hypotension --Patient immediately placed on front desk monitor, multiple IV lines established, fluids started --Patient has rectal temp of 93, bare hugger placed, broad spectrum ABx ordered --Patient placed on BIPAP for respiratory distress --Source of sepsis unclear at this point but likely respiratory 400 --Patient improving with interventions, BP is improving, breathing improving on BIPAP 600 --Case discussed with Dr. Bolivar and Dr. Edgar, will admit to ICU --Attempted central line but veins too tortuous, cannot cannulate --Systolic >100, MAP >65 at this time Disposition - Clinical Impression Clinical Impression: Sepsis, Hypoxia, Acute renal failure - Disposition Disposition Time: 05:00 Condition: CRITICAL
[2018-11-29 04:21] LABS: ALBUMIN 2.7 g/dL (3.5-5.0); CALCIUM 8.2 mg/dL (8.4-10.2)
[2018-11-29 04:28] LABS: TROPONIN I 0.022 ng/mL (0.00-0.120)
[2018-11-29] MEDS ORDERED: Sodium Chloride 0.9% 2,000 ML IV STA (04:35)
[2018-11-29 04:52] LABS: VENOUS BLOOD GAS PCO2 31 mmHg (40-60); VENOUS BLOOD GAS PO2 69 mm/Hg (30-55); VENOUS BLOOD PH 6.99 (7.32-7.43)
--- NOTE | 2018-11-29 04:52 | CP.PCM.CON ---
History of Present Illness - History of Present Illness History of Present Illness: Attending: Dr Edgar Reason for Consult: Critical care Management Chief Complaint: SOB The patient was seen and examined in the ED HPI: The hx was obtained from the ED Physician and after review of the Laboratory, radiological and medical records as the patient is in severe SOB on BIPAP. He is an 83 years old male residing at the [facility] and was sent to the ED because of Respiratory distress, Hypotension and Altered Mental status. He has hx of CAD, CABG, DM, CKD and CVA. In the ED his Creatinine was 10.1 with Temperature of 93.2F with a BP of 88/61mmHg with a PH of 7.00; PCO2 of 17 with O2 of 47 and Bicarb of 3.9He was immediately started on BIPAP IV Fluids. PMH: Anemia, Asthma; COPD, CVA, Depression, DM II insulin requiring; Fx ((R)4 & 5th metatarsal fx), Gall Bladder Disease, HTN, HLD; Pneumonia, CKD; TIA PSH: Appendectomy, CABG, Cholecystectomy; joint replacement; Glaucoma surgery SH: Former Smoker; No ETOH; No illegal drug use; Reside at [facility] Allergies: NKDA Medication: Reviewed Review of Systems - Review of Systems Systems not reviewed;Unavailable: Altered Mental Status Review of Systems: Review of system was limited because of the altered mental status. Past Patient History - Infectious Disease Hx of Infectious Diseases: None - Past Medical History & Family History Past Medical History?: Yes - Past Social History Smoking Status: Former Smoker Chewing Tobacco Use: No Cigar Use: No Alcohol: None Drugs: Denies Home Situation {Lives}: Custodial - CARDIAC Hx Hypercholesterolemia: Yes Hx Hypertension: Yes Other/Comment: Coronary Heart disease - PULMONARY Hx Asthma: Yes Hx Bronchitis: Yes Hx Chronic Obstructive Pulmonary Disease (COPD): Yes Hx Pneumonia: Yes - NEUROLOGICAL Hx Transient Ischemic Attacks (TIA): Yes - HEENT Hx HEENT Problems: Yes Hx Glaucoma: Yes - RENAL Hx Chronic Kidney Disease: Yes - ENDOCRINE/METABOLIC Hx Endocrine Disorders: Yes Hx Diabetes Mellitus Type 2: Yes - HEMATOLOGICAL/ONCOLOGICAL Hx Anemia: Yes Hx Human Immunodeficiency Virus (HIV): No - INTEGUMENTARY Hx Dermatological Problems: No - MUSCULOSKELETAL/RHEUMATOLOGICAL Hx Fractures: Yes ((R) 5th metatarsal fx) - GASTROINTESTINAL Hx Gall Bladder Disease: Yes - GENITOURINARY/GYNECOLOGICAL Hx Genitourinary Disorders: No - PSYCHIATRIC Hx Depression: Yes - SURGICAL HISTORY Hx Appendectomy: Yes Hx Cholecystectomy: Yes Hx Coronary Artery Bypass Graft: Yes Other/Comment: Joint Replacement - ANESTHESIA Hx Anesthesia: Yes Hx Anesthesia Reactions: No Hx Malignant Hyperthermia: No Meds Allergies/Adverse Reactions: Allergies Allergy/AdvReac Type Severity Reaction Status Date / Time No Known Allergies Allergy Verified 11/29/18 04:23 - Medications Medications: Current Medications Vancomycin HCl 1 gm/ Sodium (Chloride) 250 mls @ 166.667 mls/hr IVPB STAT STA; Protocol Stop: 11/29/18 04:58 Last Admin: 11/29/18 03:36 Dose: 166.667 mls/hr Sodium Chloride (Sodium Chloride 0.9%) 2,000 mls @ 1,000 mls/hr IV .Q2H STA Stop: 11/29/18 06:34 Physical Exam - Constitutional Appears: In Acute Distress - Head Exam Head Exam: ATRAUMATIC, NORMAL INSPECTION, NORMOCEPHALIC - Eye Exam Eye Exam: EOMI, Normal appearance Pupil Exam: NORMAL ACCOMODATION, PERRL - ENT Exam ENT Exam: Mucous Membranes Dry - Neck Exam Neck exam: Positive for: Full Rom, Normal Inspection - Respiratory Exam Respiratory Exam: Rhonchi, Wheezes. absent: Rales - Cardiovascular Exam Cardiovascular Exam: REGULAR RHYTHM, RRR, +S1, +S2 - GI/Abdominal Exam Additional comments: Full, soft non tender, decreased bowel sounds - Rectal Exam Rectal Exam: Deferred - Extremities Exam Extremities exam: Positive for: normal inspection. Negative for: joint swelling, pedal edema - Back Exam Back exam: NORMAL INSPECTION. absent: CVA tenderness (L), CVA tenderness (R) - Neurological Exam Additional comments: Awake alert, not speaking, no facial droop, moving upper and lower extremities to pain ful stimuli - Psychiatric Exam Psychiatric exam: Flat Affect - Skin Skin Exam: Dry, Intact, Normal Color, Warm Results - Vital Signs Recent Vital Signs: Last Vital Signs Temp 93.2 F L 11/29/18 03:20 Pulse 65 11/29/18 04:19 Resp 32 H 11/29/18 04:19 BP 101/49 L 11/29/18 04:19 Pulse Ox 100 11/29/18 04:32 - Labs Result Diagrams: 11/29/18 08:55 11/29/18 08:55 Labs: Laboratory Results - last 24 hr 11/29/18 11/29/18 11/29/18 03:25 03:30 03:55 WBC 31.7 H D RBC 3.50 L Hgb 10.8 L Hct 35.0 MCV 100.0 H D MCH 30.7 MCHC 30.7 L RDW 17.0 H Plt Count 227 MPV 10.4 Neut % (Auto) 96.2 H Lymph % (Auto) 1.[address] [place] % (Auto) 2.4 Eos % (Auto) 0.0 Baso % (Auto) 0.3 Neut # (Auto) 30.5 H Lymph # (Auto) 0.[address] [place] # (Auto) 0.7 Eos # (Auto) 0.0 Baso # (Auto) 0.1 pCO2 17 L* pO2 47 L HCO3 3.9 L* ABG pH 7.00 L* ABG Total CO2 4.7 L ABG O2 Saturation 76.8 L ABG Base Excess -25.5 L Kevin Test Yes ABG Potassium 2.6 L A-a O2 Difference 645.0 Sodium 141.0 Chloride 124.0 H Glucose 130 H Lactate 1.5 FiO2 100.0 Crit Value Called To Dr coleman rosen Crit Value Called By Ernesto Crit Value Read Back Y Blood Gas Notified Time 331 Potassium Carbon Dioxide Anion Gap Creatinine Est GFR ( Amer) Est GFR (Non-Af Amer) Random Glucose Calcium Phosphorus Magnesium Total Bilirubin AST ALT Alkaline Phosphatase Troponin I NT-Pro-B Natriuret Pep Total Protein Albumin Globulin Albumin/Globulin Ratio Arterial Blood Potassium 2.6 L Stool Occult Blood Negative 11/29/18 11/29/18 04:00 04:30 WBC RBC Hgb Hct MCV MCH MCHC RDW Plt Count MPV Neut % (Auto) Lymph % (Auto) [place] % (Auto) Eos % (Auto) Baso % (Auto) Neut # (Auto) Lymph # (Auto) [place] # (Auto) Eos # (Auto) Baso # (Auto) pCO2 pO2 HCO3 ABG pH ABG Total CO2 ABG O2 Saturation ABG Base Excess Kevin Test ABG Potassium A-a O2 Difference Sodium 138 Chloride 106 Glucose Lactate FiO2 Crit Value Called To Crit Value Called By Crit Value Read Back Blood Gas Notified Time Potassium 6.7 H* D 5.3 H Carbon Dioxide 9 L* D Anion Gap 30 H Creatinine 10.1 H* D Est GFR ( Amer) 6 Est GFR (Non-Af Amer) 5 Random Glucose 256 H Calcium 8.2 L Phosphorus 13.5 H Magnesium 2.9 H Total Bilirubin 0.3 AST 21 ALT 27 Alkaline Phosphatase 52 Troponin I 0.0220 NT-Pro-B Natriuret Pep 5030 H Total Protein 5.4 L Albumin 2.7 L D Globulin 2.6 Albumin/Globulin Ratio 1.0 Arterial Blood Potassium Stool Occult Blood - EKG Data EKG comments: Sinus Rhythm with 1st degree AV block LAD 68/min - Imaging and Cardiology Chest x-ray Status: Image reviewed by me Additional comment: Clear Assessment & Plan - Assessment and Plan (Free Text) Assessment: #. Acute Hypoxic Respiratory Failure #. Metabolic Acidosis #. Septic Shock #, Acute on Chronic Kidney disease #. Hyperkalemia #. DM II with Hyperglycemia #. Anemia of Chronic Disease Plan: 83 years old male residing at the [facility] and was sent to the ED because of Respiratory distress, Hypotension and Altered Mental status. He has hx of CAD, CABG, DM, CKD and CVA. In the ED his Creatinine was 10.1 with Temperature of 93.2F with a BP of 88/61mmHg with a PH of 7.00; PCO2 of 17 with O2 of 47 and Bicarb of 3.9He was immediately started on BIPAP IV Fluids. #. Acute Hypoxic Respiratory Failure etiology Unclear - Follow D Dimer. If positive start Emperic treatment for PE and order Duplex US of lower extremities - Increase Oxygenation with BIPAP. Endotracheal Intubation if needed #. Metabolic Acidosis secondary to renal failure - IV Sodium Bicarbonate - Serial ABG #. Septic Shock Site unclear. CXR is clear/ Urine is negative/ no apparent abdominal pain/ Lactic acid normal level - blood Culture - Urine culture - Antibiotic with Vancomycin - zosyn - IV fluids - Procalcitonin #, Acute on Chronic Kidney disease - Consult Nephrology - IV Fluids - Follow Renal labs #. Hyperkalemia - Patient received Beta Agonist - Follow electrolytes #. DM II with Hyperglycemia - Lispro sliding scale according to accucheck - HbA1c #. Anemia of Chronic Disease - Procrit - follow Hb #. HTN - hold all antihypertensive medications #. DVT prophylaxis with Heparin Sub Q Noam Bolivar MD - Date & Time Date: 11/29/18 Time: 04:51
[2018-11-29] MEDS ORDERED: Sodium Bicarbonate 7.5% (0.9 MEQ/ML) 50ML INJ IV ONE (04:53)
[2018-11-29] MEDS ORDERED: Sodium Bicarbonate 8.4% 10 MEQ/10 ML (PED) IV ONE ×2 (04:58→06:10)
[2018-11-29] MEDS ORDERED: Piperacillin/Tazobact 3.375 gm Inj IVPB ONE (05:09)
[2018-11-29] MEDS ORDERED: Povidone Iodine Oint 10% Foilpak UD ONE (05:13)
[2018-11-29 05:27] LABS: LYMPHOCYTE 3 % (20-50); MONOCYTE 4 % (0-10); NEUTROPHIL 93 % (42-75); TOTAL CELLS COUNTED 100
[2018-11-29 05:28] LABS: ANISOCYTOSIS SLIGHT; LARGE PLATELETS PRESENT; OVALOCYTES MODERATE; PLATELET ESTIMATE NORMAL (NORMAL)
[2018-11-29 06:54] LABS: SQUAMOUS EPITHIAL < 1 /hpf (0-5); URINE BILIRUBIN NEGATIVE (NEGATIVE); URINE BLOOD NEGATIVE (NEGATIVE); URINE CLARITY SLIGHTY-CLOUDY (Clear); URINE COLOR YELLOW (YELLOW); URINE GLUCOSE (UA) NEG (NEGATIVE); URINE LEUKOCYTE ESTERASE NEG Leu/uL (Negative); URINE PROTEIN 30 mg/dL (NEGATIVE); URINE UROBILINOGEN 0.2-1.0 mg/dL (0.2-1.0)
[2018-11-29] MEDS ORDERED: Sodium Chloride 0.9% 500 ML IV ONE (07:11)
[2018-11-29] MEDS: Albuterol-Ipratrop 3 mg / 0.5 (3 ml) UD INH SCH ×2 (07:57→13:55)
--- NOTE | 2018-11-29 08:18 | RAD ---
Date of service: 11/29/2018 HISTORY: CHF COMPARISON: Portable chest 11/29/2018. FINDINGS: LUNGS: Respiratory motion degrades the quality of the exam. Limited linear atelectasis in the medial left base. No definite infiltrate bilaterally. PLEURA: No significant pleural effusion identified, no pneumothorax apparent. CARDIOVASCULAR: Calcific atherosclerotic changes are seen related to the thoracic aorta. Post CABG changes are reiterated at the mediastinum. Normal cardiac size. No pulmonary vascular congestion. OSSEOUS STRUCTURES: No significant abnormalities. VISUALIZED UPPER ABDOMEN: Normal. OTHER FINDINGS: None. IMPRESSION: Linear atelectasis medial left base. Exam otherwise unremarkable bilaterally.
--- NOTE | 2018-11-29 08:20 | RAD ---
Date of service: 11/29/2018 HISTORY: RESPIRATORY DISTRESS COMPARISON: Portable chest 04/08/2018. FINDINGS: LUNGS: Borderline patchy density right infrahilar space. None is seen at the left. PLEURA: No significant pleural effusion identified, no pneumothorax apparent. CARDIOVASCULAR: Calcific atherosclerotic changes are seen related to the thoracic aorta. Post CABG changes reiterated. Normal cardiac size. No pulmonary vascular congestion. OSSEOUS STRUCTURES: No significant abnormalities. VISUALIZED UPPER ABDOMEN: Normal. OTHER FINDINGS: None. IMPRESSION: Borderline patchy density right infrahilar space reflecting atelectasis or potential early infiltrate. Post CABG changes again evident. No pulmonary vascular congestion.
[2018-11-29 08:23] VITALS: TEMP 97.4
[2018-11-29] MEDS ORDERED: Sodium Bicarbonate 8.4% 150 MEQ in Dextrose 5% In Water 1,000 ML IV SCH (08:30)
[2018-11-29 09:02] LABS: BASO # 0.1 K/uL (0.0-0.2); BASO % 0.2 % (0.0-2.0); HEMOGLOBIN 9.3 g/dL (12.0-18.0); LYMPH # 0.1 K/uL (1.0-4.3); LYMPH % 0.4 % (20.0-40.0); MEAN CELL VOLUME 97.3 fl (80.0-94.0); MEAN CORPUSCULAR HGB CONC 30.9 g/dL (33.0-37.0); MONO # 0.2 K/uL (0.0-0.8); MONO % 0.5 % (0.0-10.0); NEUT # 32.1 K/uL (1.8-7.0); NEUT % 98.9 % (50.0-75.0); PLATELET COUNT 200 K/uL (130-400); RBC 3.08 Mil/uL (4.40-5.90); RED CELL DISTRIBUTION WIDTH 16.3 % (11.5-14.5); WHITE BLOOD COUNT 32.5 K/uL (4.8-10.8)
[2018-11-29 09:33] LABS: CALCIUM 6.7 mg/dL (8.4-10.2)
--- NOTE | 2018-11-29 09:51 | CT ---
Date of service: 11/29/2018 PROCEDURE: CT HEAD WITHOUT CONTRAST. HISTORY: AMS COMPARISON: None available. TECHNIQUE: Axial computed tomography images were obtained through the head/brain without intravenous contrast. Radiation dose: Total exam DLP = 1212.93 mGy-cm. This CT exam was performed using one or more of the following dose reduction techniques: Automated exposure control, adjustment of the mA and/or kV according to patient size, and/or use of iterative reconstruction technique. FINDINGS: HEMORRHAGE: No intracranial hemorrhage. 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 No definite acute cortical edema is appreciable and there is no mass effect either. Ex vacuo expansion of the right lateral ventricle identified related to right cerebral chronic infarcts. Posterior fossa contents appear unremarkable throughout. Prominent stasis at the anterior portion of the middle cranial fossa minimally exerts mass effect at the anterior margin of the left temporal lobe compatible with an arachnoid cyst once again. No interval change. VENTRICLES: Unremarkable. No hydrocephalus. CALVARIUM: Unremarkable. PARANASAL SINUSES: Limited polyp or mucoid material alveolar recess left maxillary sinus. MASTOID AIR CELLS: Right mastoid effusions are identified diffusely. None are seen at the left. OTHER FINDINGS: None. IMPRESSION: Stable age related neuro degenerative findings as well as chronic infarcts at the right parietal and occipital lobes. Arachnoid cyst left middle cranial fossa reiterated. Incidental right mastoid effusions and minimal left maxillary sinus disease. Preliminary report provided by Don, 11/29/2018 6:57 a.m..
[2018-11-29] MEDS ORDERED: Sodium Chloride 0.9% 250 ML IV SCH ×2 (10:15→11:45)
[2018-11-29] MEDS ORDERED: Etomidate 20 mg/10ml Inj IV ONE ×2 (10:38→11:32)
--- NOTE | 2018-11-29 10:49 | PCM.ANES ---
Anesthesia Emergent Intubation - Diagnosis Working Diagnosis:: Sepsis, respiratory distresss - Consult Reason for Consult:: respiratory distress - Pre-Intubation Vital Signs Blood Pressure: 99/39 Heart Rate: 120 Respiratory Rate: 34 O2 Sat: 99 FIO2: 1 Oxygen Delivery Method: BiPAP Level Of Consciousness: Lethargic, Somnolent Intubation Meds Given: Etomidate - Airway Management Oropharyngeal Area Suctioned: Yes PreOxygenation: 100 Inhalation: No Rapid Sequence: Yes Cricoid Pressure: Yes Possible Aspiration: No - Method of Intubation Intubation Method: Oral ETT ETT Size: 7.5 Lipline@: 23 Easy: No Atramatic: Yes - Intubation Devices Delvin Blade Size Used: 4 Tova Forcepts Used: No [place] Scope Used: No Fiber Optic Scope: No - Placement Confirmation Breath Sounds Present & Equal Bilaterally: Yes Gurgling Sounds Not Audible at Epigastrum: No Positive EtCO2: Yes Portable CXR: No Recommendations: Ventilator - Post-Intubation Vital Signs Blood Pressure: 74/33 Heart Rate: 99 Respiratory Rate: 18 O2 Sat: 97 FIO2: 100
[2018-11-29 11:10] LABS: BANDS 1 % (0-2); LYMPHOCYTE 1 % (20-50); MONOCYTE 1 % (0-10); NEUTROPHIL 97 % (42-75); PLATELET ESTIMATE NORMAL (NORMAL); TOTAL CELLS COUNTED 100
[2018-11-29 11:11] LABS: ANISOCYTOSIS SLIGHT; HYPOCHROMIC SLIGHT; LARGE PLATELETS PRESENT; OVALOCYTES SLIGHT; SCHISTOCYTES SLIGHT; TEARDROP CELLS SLIGHT
--- NOTE | 2018-11-29 11:26 | PCM.PROC ---
Procedures Attestation:: I certify that I have explained the specified Operation(s) or Procedure(s), risks, benefits and reasonable alternatives to the Patient and/or other person responsible. The opportunity was given to ask questions and all questions answered - Central Line Placement Right Femoral Triple Lumen Catheter Aseptic technique was employed throughout the procedure: Full sterile barriers (mask, hair cover, sterile gown, sterile gloves), Full body sterile drape, Chloraprep Antiseptic: 30 second prep for IJ or SC sites CVP Time Out Performed: Yes Pt. Placed on Pulse Ox Monitor: Yes Central Line Prep: Chlorhexidine-Alcohol Combination Local Anesthesia Used: Lidocaine 1% Ultrasound Used for Placement: Yes Central Line Lumen Inserted: triple Central Line Length: 20 cm Post Procedure: Sutured in Place, Good Blood Return, All Ports Aspirated, Flushed, Capped, Sterile Dressing Applied Secured by: Suture Post procedure dressing: Gauze Post Procedure X-Ray: No Patient Tolerated Procedure: Well, No Complications
--- NOTE | 2018-11-29 12:10 | CP.PCM.HP ---
Past Patient History - Infectious Disease Hx of Infectious Diseases: None - Past Medical History & Family History Past Medical History?: Yes - Past Social History Smoking Status: Former Smoker Chewing Tobacco Use: No Cigar Use: No Alcohol: None Drugs: Denies Home Situation {Lives}: Fdc - CARDIAC Hx Hypercholesterolemia: Yes Hx Hypertension: Yes Other/Comment: Coronary Heart disease - PULMONARY Hx Asthma: Yes Hx Bronchitis: Yes Hx Chronic Obstructive Pulmonary Disease (COPD): Yes Hx Pneumonia: Yes - NEUROLOGICAL Hx Transient Ischemic Attacks (TIA): Yes - HEENT Hx HEENT Problems: Yes Hx Glaucoma: Yes - RENAL Hx Chronic Kidney Disease: Yes - ENDOCRINE/METABOLIC Hx Endocrine Disorders: Yes Hx Diabetes Mellitus Type 2: Yes - HEMATOLOGICAL/ONCOLOGICAL Hx Anemia: Yes Hx Human Immunodeficiency Virus (HIV): No - INTEGUMENTARY Hx Dermatological Problems: No - MUSCULOSKELETAL/RHEUMATOLOGICAL Hx Fractures: Yes ((R) 5th metatarsal fx) - GASTROINTESTINAL Hx Gall Bladder Disease: Yes - GENITOURINARY/GYNECOLOGICAL Hx Genitourinary Disorders: No - PSYCHIATRIC Hx Depression: Yes - SURGICAL HISTORY Hx Appendectomy: Yes Hx Cholecystectomy: Yes Hx Coronary Artery Bypass Graft: Yes Other/Comment: Joint Replacement - ANESTHESIA Hx Anesthesia: Yes Hx Anesthesia Reactions: No Hx Malignant Hyperthermia: No Meds Allergies/Adverse Reactions: Allergies Allergy/AdvReac Type Severity Reaction Status Date / Time No Known Allergies Allergy Verified 11/29/18 04:23 Results - Vital Signs Recent Vital Signs: Last Vital Signs Temp 97.4 F L 11/29/18 08:00 Pulse 68 11/29/18 11:00 Resp 24 11/29/18 11:00 BP 93/47 L 11/29/18 11:00 Pulse Ox 100 11/29/18 11:00 - Labs Result Diagrams: 11/29/18 08:55 11/29/18 08:55 Labs: Laboratory Results - last 24 hr 11/29/18 11/29/18 11/29/18 03:25 03:30 03:55 WBC 31.7 H D RBC 3.50 L Hgb 10.8 L Hct 35.0 MCV 100.0 H D MCH 30.7 MCHC 30.7 L RDW 17.0 H Plt Count 227 MPV 10.4 Neut % (Auto) 96.2 H Lymph % (Auto) 1.1 L [place] % (Auto) 2.4 Eos % (Auto) 0.0 Baso % (Auto) 0.3 Neut # (Auto) 30.5 H Lymph # (Auto) 0.4 L [place] # (Auto) 0.7 Eos # (Auto) 0.0 Baso # (Auto) 0.1 Neutrophils % (Manual) 93 H Band Neutrophils % Lymphocytes % (Manual) 3 L Monocytes % (Manual) 4 Platelet Estimate Normal Large Platelets Present Hypochromasia (manual) Anisocytosis (manual) Slight Macrocytosis (manual) Slight Tear Drop Cells Ovalocytes Moderate Schistocytes D-Dimer, Quantitative pCO2 17 L* pO2 47 L HCO3 3.9 L* ABG pH 7.00 L* ABG Total CO2 4.7 L ABG O2 Saturation 76.8 L ABG Base Excess -25.5 L Kevin Test Yes ABG Potassium 2.6 L VBG pH VBG pCO2 VBG HCO3 VBG Total CO2 VBG O2 Sat (Calc) VBG Base Excess VBG Potassium A-a O2 Difference 645.0 Sodium 141.0 Chloride 124.0 H Glucose 130 H Lactate 1.5 FiO2 100.0 Expiratory BiPAP Crit Value Called To Dr coleman rosen Crit Value Called By Ernesto Crit Value Read Back Y Blood Gas Notified Time 331 Potassium Carbon Dioxide Anion Gap BUN Creatinine Est GFR ( Amer) Est GFR (Non-Af Amer) POC Glucose (mg/dL) Random Glucose Hemoglobin A1c Calcium Phosphorus Magnesium Total Bilirubin AST ALT Alkaline Phosphatase Troponin I NT-Pro-B Natriuret Pep Total Protein Albumin Globulin Albumin/Globulin Ratio Arterial Blood Potassium 2.6 L Venous Blood Potassium Urine Color Urine Clarity Urine pH Ur Specific [place] Urine Protein Urine Glucose (UA) Urine Ketones Urine Blood Urine Nitrate Urine Bilirubin Urine Urobilinogen Ur Leukocyte Esterase Urine Microscopic WBC Ur Squamous Epith Cells Stool Occult Blood Negative Influenza Typ A,B (EIA) 11/29/18 11/29/18 11/29/18 04:00 04:30 04:45 WBC RBC Hgb Hct MCV MCH MCHC RDW Plt Count MPV Neut % (Auto) Lymph % (Auto) [place] % (Auto) Eos % (Auto) Baso % (Auto) Neut # (Auto) Lymph # (Auto) [place] # (Auto) Eos # (Auto) Baso # (Auto) Neutrophils % (Manual) Band Neutrophils % Lymphocytes % (Manual) Monocytes % (Manual) Platelet Estimate Large Platelets Hypochromasia (manual) Anisocytosis (manual) Macrocytosis (manual) Tear Drop Cells Ovalocytes Schistocytes D-Dimer, Quantitative pCO2 pO2 69 H HCO3 ABG pH ABG Total CO2 ABG O2 Saturation ABG Base Excess Kevin Test ABG Potassium VBG pH 6.99 L* VBG pCO2 31 L VBG HCO3 6.5 VBG Total CO2 8.5 L VBG O2 Sat (Calc) 93.5 H VBG Base Excess -23.0 L VBG Potassium 4.8 A-a O2 Difference Sodium 138 139.0 Chloride 106 114.0 H Glucose 190 H Lactate 1.8 FiO2 100.0 Expiratory BiPAP 6 Crit Value Called To Dr coleman rosen Crit Value Called By Ernesto Crit Value Read Back Y Blood Gas Notified Time 451 Potassium 6.7 H* D 5.3 H Carbon Dioxide 9 L* D Anion Gap 30 H BUN 288 H* D Creatinine 10.1 H* D Est GFR ( Amer) 6 Est GFR (Non-Af Amer) 5 POC Glucose (mg/dL) Random Glucose 256 H Hemoglobin A1c Calcium 8.2 L Phosphorus 13.5 H Magnesium 2.9 H Total Bilirubin 0.3 AST 21 ALT 27 Alkaline Phosphatase 52 Troponin I 0.0220 NT-Pro-B Natriuret Pep 5030 H Total Protein 5.4 L Albumin 2.7 L D Globulin 2.6 Albumin/Globulin Ratio 1.0 Arterial Blood Potassium Venous Blood Potassium 4.8 Urine Color Urine Clarity Urine pH Ur Specific [place] Urine Protein Urine Glucose (UA) Urine Ketones Urine Blood Urine Nitrate Urine Bilirubin Urine Urobilinogen Ur Leukocyte Esterase Urine Microscopic WBC Ur Squamous Epith Cells Stool Occult Blood Influenza Typ A,B (EIA) 11/29/18 11/29/18 11/29/18 04:50 05:34 06:22 WBC RBC Hgb Hct MCV MCH MCHC RDW Plt Count MPV Neut % (Auto) Lymph % (Auto) [place] % (Auto) Eos % (Auto) Baso % (Auto) Neut # (Auto) Lymph # (Auto) [place] # (Auto) Eos # (Auto) Baso # (Auto) Neutrophils % (Manual) Band Neutrophils % Lymphocytes % (Manual) Monocytes % (Manual) Platelet Estimate Large Platelets Hypochromasia (manual) Anisocytosis (manual) Macrocytosis (manual) Tear Drop Cells Ovalocytes Schistocytes D-Dimer, Quantitative 5322 H pCO2 pO2 HCO3 ABG pH ABG Total CO2 ABG O2 Saturation ABG Base Excess Kevin Test ABG Potassium VBG pH VBG pCO2 VBG HCO3 VBG Total CO2 VBG O2 Sat (Calc) VBG Base Excess VBG Potassium A-a O2 Difference Sodium Chloride Glucose Lactate FiO2 Expiratory BiPAP Crit Value Called To Crit Value Called By Crit Value Read Back Blood Gas Notified Time Potassium Carbon Dioxide Anion Gap BUN Creatinine Est GFR ( Amer) Est GFR (Non-Af Amer) POC Glucose (mg/dL) Random Glucose Hemoglobin A1c Calcium Phosphorus Magnesium Total Bilirubin AST ALT Alkaline Phosphatase Troponin I NT-Pro-B Natriuret Pep Total Protein Albumin Globulin Albumin/Globulin Ratio Arterial Blood Potassium Venous Blood Potassium Urine Color Yellow Urine Clarity Slighty-cloudy Urine pH 5.0 Ur Specific [place] 1.016 Urine Protein 30 Urine Glucose (UA) Neg Urine Ketones Negative Urine Blood Negative Urine Nitrate Negative Urine Bilirubin Negative Urine Urobilinogen 0.2-1.0 Ur Leukocyte Esterase Neg Urine Microscopic WBC 1 Ur Squamous Epith Cells < 1 Stool Occult Blood Influenza Typ A,B (EIA) Negative for flu a/b 11/29/18 11/29/18 11/29/18 08:55 08:55 08:55 WBC 32.5 H RBC 3.08 L Hgb 9.3 L Hct 30.0 L MCV 97.3 H D MCH 30.0 MCHC 30.9 L RDW 16.3 H Plt Count 200 MPV 10.0 Neut % (Auto) 98.9 H Lymph % (Auto) 0.4 L [place] % (Auto) 0.5 Eos % (Auto) 0.0 Baso % (Auto) 0.2 Neut # (Auto) 32.1 H Lymph # (Auto) 0.1 L [place] # (Auto) 0.2 Eos # (Auto) 0.0 Baso # (Auto) 0.1 Neutrophils % (Manual) 97 H Band Neutrophils % 1 Lymphocytes % (Manual) 1 L Monocytes % (Manual) 1 Platelet Estimate Normal Large Platelets Present Hypochromasia (manual) Slight Anisocytosis (manual) Slight Macrocytosis (manual) Tear Drop Cells Slight Ovalocytes Slight Schistocytes Slight D-Dimer, Quantitative pCO2 pO2 HCO3 ABG pH ABG Total CO2 ABG O2 Saturation ABG Base Excess Kevin Test ABG Potassium VBG pH VBG pCO2 VBG HCO3 VBG Total CO2 VBG O2 Sat (Calc) VBG Base Excess VBG Potassium A-a O2 Difference Sodium 141 Chloride 115 H Glucose Lactate FiO2 Expiratory BiPAP Crit Value Called To Crit Value Called By Crit Value Read Back Blood Gas Notified Time Potassium 5.8 H Carbon Dioxide 8 L* Anion Gap 24 H BUN 225 H* D Creatinine 8.4 H* Est GFR ( Amer) 7 Est GFR (Non-Af Amer) 6 POC Glucose (mg/dL) Random Glucose 229 H Hemoglobin A1c 8.5 H Calcium 6.7 L Phosphorus Magnesium Total Bilirubin AST ALT Alkaline Phosphatase Troponin I NT-Pro-B Natriuret Pep Total Protein Albumin Globulin Albumin/Globulin Ratio Arterial Blood Potassium Venous Blood Potassium Urine Color Urine Clarity Urine pH Ur Specific [place] Urine Protein Urine Glucose (UA) Urine Ketones Urine Blood Urine Nitrate Urine Bilirubin Urine Urobilinogen Ur Leukocyte Esterase Urine Microscopic WBC Ur Squamous Epith Cells Stool Occult Blood Influenza Typ A,B (EIA) 11/29/18 11:36 WBC RBC Hgb Hct MCV MCH MCHC RDW Plt Count MPV Neut % (Auto) Lymph % (Auto) [place] % (Auto) Eos % (Auto) Baso % (Auto) Neut # (Auto) Lymph # (Auto) [place] # (Auto) Eos # (Auto) Baso # (Auto) Neutrophils % (Manual) Band Neutrophils % Lymphocytes % (Manual) Monocytes % (Manual) Platelet Estimate Large Platelets Hypochromasia (manual) Anisocytosis (manual) Macrocytosis (manual) Tear Drop Cells Ovalocytes Schistocytes D-Dimer, Quantitative pCO2 pO2 HCO3 ABG pH ABG Total CO2 ABG O2 Saturation ABG Base Excess Kevin Test ABG Potassium VBG pH VBG pCO2 VBG HCO3 VBG Total CO2 VBG O2 Sat (Calc) VBG Base Excess VBG Potassium A-a O2 Difference Sodium Chloride Glucose Lactate FiO2 Expiratory BiPAP Crit Value Called To Crit Value Called By Crit Value Read Back Blood Gas Notified Time Potassium Carbon Dioxide Anion Gap BUN Creatinine Est GFR ( Amer) Est GFR (Non-Af Amer) POC Glucose (mg/dL) 277 H Random Glucose Hemoglobin A1c Calcium Phosphorus Magnesium Total Bilirubin AST ALT Alkaline Phosphatase Troponin I NT-Pro-B Natriuret Pep Total Protein Albumin Globulin Albumin/Globulin Ratio Arterial Blood Potassium Venous Blood Potassium Urine Color Urine Clarity Urine pH Ur Specific [place] Urine Protein Urine Glucose (UA) Urine Ketones Urine Blood Urine Nitrate Urine Bilirubin Urine Urobilinogen Ur Leukocyte Esterase Urine Microscopic WBC Ur Squamous Epith Cells Stool Occult Blood Influenza Typ A,B (EIA) Assessment & Plan (1) Acute renal failure Status: Acute (2) Hypoxia Status: Acute (3) Sepsis Status: Acute (4) Altered mental status Status: Acute Priority: High (5) Chronic systolic dysfunction of left ventricle Status: Acute (6) Diabetes mellitus with hyperglycemia Status: Acute Priority: High (7) Metabolic encephalopathy Status: Acute (8) 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
[2018-11-29] MEDS ORDERED: Mannitol 12.5 gm/50 ml Inj IV SCH (13:00)
[2018-11-29] MEDS ORDERED: Chlorhexidine Gluconate 1 APPL/PKT TP ONE (14:36)
[2018-11-29 14:45] LABS: ABG ALLEN TEST YES; ARTERIAL BLOOD GAS HCO3 7.4 mmol/L (21-28); ARTERIAL BLOOD GAS O2 SAT 96.9 % (95-98); ARTERIAL BLOOD GAS PCO2 27 mm/Hg (35-45); ARTERIAL BLOOD GAS PH 7.03 (7.35-7.45); ARTERIAL BLOOD GAS PO2 403 mm/Hg (80-100); ARTERIAL BLOOD GAS TCO2 7.9 mmol/L (22-28)
[2018-11-29 14:57] VITALS: BP 97/57; PULSE 67; RESP 32; O2SAT 99
[2018-11-29] MEDS ORDERED: Sodium Bicarbonate (8.4%) 50 Meq Syringe IVP ONE (15:15)
[2018-11-29] MEDS ORDERED: Dextrose 50% SYRINGE Inj (50 ml) IVP ONE (15:15)
[2018-11-29] MEDS ORDERED: Insulin Regular 100 units/ml SC STA (15:23)
--- NOTE | 2018-11-29 15:23 | RAD ---
Date of service: 11/29/2018 HISTORY: intubation COMPARISON: No prior. FINDINGS: In situ ETT, tip of which lies approximately 7 cm above beni (note however that the beni is poorly seen on this exam. LUNGS: Mild bibasilar atelectasis.. PLEURA: No significant pleural effusion identified, no pneumothorax apparent. CARDIOVASCULAR: Mild moderate aortic atherosclerotic calcification present. Heart size within range of normal. Sternotomy wires and CABG clips again noted.. No pulmonary vascular congestion. OSSEOUS STRUCTURES: No significant abnormalities. VISUALIZED UPPER ABDOMEN: Normal. OTHER FINDINGS: None. IMPRESSION: In situ ETT as detailed above. Mild bibasilar atelectasis.
--- NOTE | 2018-11-29 15:30 | RAD ---
Date of service: 11/29/2018 HISTORY: Post intubation COMPARISON: Comparison chest dated 11/29/2018. FINDINGS: Situ ETT, tip of which lies approximately 5.1 cm above beni. LUNGS: Vague opacity left lung base could represent atelectasis and/or developing infiltrate. Questionable small right-sided effusion. Minimal right basilar atelectasis and possible tiny right effusion. PLEURA: No significant pleural effusion identified, no pneumothorax apparent. CARDIOVASCULAR: Mild aortic atherosclerotic calcification present. Normal cardiac size. Sternotomy wires and CABG clips again noted. OSSEOUS STRUCTURES: No significant abnormalities. VISUALIZED UPPER ABDOMEN: Normal. OTHER FINDINGS: None. IMPRESSION: ETT as detailed above. Vague opacity left lung base could represent atelectasis and/or developing infiltrate. Questionable small right-sided effusion. Minimal right basilar atelectasis and possible tiny right effusion.
--- NOTE | 2018-11-29 16:43 | CP.PCM.PRO ---
Pronouncement of Note - Clinical Findings Physical Exam: No Response Verbal/Painful Stimuli, Absent Peripheral Puls es{Carotid & Femoral}, Absent Heart & Breath Sounds, No Pupillary Light Reflex, No Corneal Reflex, Pupils Fixed & Dilated, Absence of Vital Signs - Pronouncement Time Time of Pronouncement of : 15:48 - Notifications Pronouncement Notifications: Family Notified, Atending Notified [employer] Ranger Notified: No - Autopsy Autopsy Requested: No - [place] [id number]
--- NOTE | 2018-11-29 18:12 | CP.PCM.DIS ---
Provider - Provider Date of Admission: 11/29/18 04:21 Attending physician: Keke Edgar MD Consults: 11/29/18 04:35 Nephrology Consult Stat Comment: Consulting Provider: Javed Zepeda Consulting Physician: Javed Zepeda Reason for Consult: renal failure 11/29/18 09:55 Nursing Referral for Wound Care Routine Comment: Physician Instructions: Reason For Exam: protocol Pastoral Care Referral Routine Comment: Physician Instructions: Reason For Exam: protocol Time Spent in preparation of Discharge (in minutes): 15 Diagnosis - Discharge Diagnosis (1) Altered mental status Status: Acute Priority: High (2) Metabolic encephalopathy Status: Acute Priority: High (3) Acute renal failure Status: Acute (4) Hypoxia Status: Acute (5) Sepsis Status: Acute (6) Chronic systolic dysfunction of left ventricle Status: Acute Priority: High (7) Diabetes mellitus with hyperglycemia Status: Acute Priority: High (8) 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5 % (0.0-10.0) 11/29/18 08:55 Eos % (Auto) 0.0 % (0.0-4.0) 11/29/18 08:55 Baso % (Auto) 0.2 % (0.0-2.0) 11/29/18 08:55 Neut # (Auto) 32.1 K/uL (1.8-7.0) H 11/29/18 08:55 Lymph # (Auto) 0.1 K/uL (1.0-4.3) L 11/29/18 08:55 Gila # (Auto) 0.2 K/uL (0.0-0.8) 11/29/18 08:55 Eos # (Auto) 0.0 K/uL (0.0-0.7) 11/29/18 08:55 Baso # (Auto) 0.1 K/uL (0.0-0.2) 11/29/18 08:55 Neutrophils % (Manual) 97 % (42-75) H 11/29/18 08:55 Band Neutrophils % 1 % (0-2) 11/29/18 08:55 Lymphocytes % (Manual) 1 % (20-50) L 11/29/18 08:55 Monocytes % (Manual) 1 % (0-10) 11/29/18 08:55 Platelet Estimate Normal (NORMAL) 11/29/18 08:55 Large Platelets Present 11/29/18 08:55 Hypochromasia (manual) Slight 11/29/18 08:55 Anisocytosis (manual) Slight 11/29/18 08:55 Macrocytosis (manual) Slight 11/29/18 03:30 Tear Drop Cells Slight 11/29/18 08:55 Ovalocytes Slight 11/29/18 08:55 Schistocytes Slight 11/29/18 08:55 D-Dimer, Quantitative 5322 ng/mlDDU (0-230) H 11/29/18 05:34 pCO2 27 mm/Hg (35-45) L 11/29/18 14:40 pO2 403 mm/Hg (80-100) H 11/29/18 14:40 HCO3 7.4 mmol/L (21-28) L* 11/29/18 14:40 ABG pH 7.03 (7.35-7.45) L* 11/29/18 14:40 ABG Total CO2 7.9 mmol/L (22-28) L 11/29/18 14:40 ABG O2 Saturation 96.9 % (95-98) 11/29/18 14:40 ABG Base Excess -22.5 mmol/L (-2.0-3.0) L 11/29/18 14:40 Kevin Test Yes 11/29/18 14:40 ABG Potassium 6.3 mmol/L (3.6-5.2) H* 11/29/18 14:40 VBG pH 6.99 (7.32-7.43) L* 11/29/18 04:45 VBG pCO2 31 mmHg (40-60) L 11/29/18 04:45 VBG HCO3 6.5 mmol/L 11/29/18 04:45 VBG Total CO2 8.5 mmol/L (22-28) L 11/29/18 04:45 VBG O2 Sat (Calc) 93.5 % (40-65) H 11/29/18 04:45 VBG Base Excess -23.0 mmol/L (0.0-2.0) L 11/29/18 04:45 VBG Potassium 4.8 mmol/L (3.6-5.2) 11/29/18 04:45 A-a O2 Difference 276.0 mm/Hg 11/29/18 14:40 Sodium 138.0 mmol/L (132-148) 11/29/18 14:40 Chloride 113.0 mmol/L (98-107) H 11/29/18 14:40 Glucose 304 mg/dL (75-110) H 11/29/18 14:40 Lactate 1.3 mmol/L (0.7-2.1) 11/29/18 14:40 FiO2 100.0 % 11/29/18 14:40 Expiratory BiPAP 6 11/29/18 04:45 Crit Value Called To Dr Vladimir tillman 11/29/18 14:40 Crit Value Called By 23 11/29/18 14:40 Crit Value Read Back Y 11/29/18 14:40 Blood Gas Notified Time 1440 11/29/18 14:40 Sodium 141 mmol/l (132-148) 11/29/18 08:55 Potassium 5.8 MMOL/L (3.6-5.0) H 11/29/18 08:55 Chloride 115 mmol/L (98-107) H 11/29/18 08:55 Carbon Dioxide 8 mmol/L (22-30) L* 11/29/18 08:55 Anion Gap 24 (10-20) H 11/29/18 08:55 BUN 225 mg/dl (9-20) H* D 11/29/18 08:55 Creatinine 8.4 mg/dl (0.8-1.5) H* 11/29/18 08:55 Est GFR ( Amer) 7 11/29/18 08:55 Est GFR (Non-Af Amer) 6 11/29/18 08:55 POC Glucose (mg/dL) 266 mg/dL (65-110) H 11/29/18 15:43 Random Glucose 229 mg/dL (75-110) H 11/29/18 08:55 Hemoglobin A1c 8.5 % (4.2-6.5) H 11/29/18 08:55 Calcium 6.7 mg/dL (8.4-10.2) L 11/29/18 08:55 Phosphorus 13.5 mg/dl (2.5-4.5) H 11/29/18 04:00 Magnesium 2.9 MG/DL (1.6-2.3) H 11/29/18 04:00 Total Bilirubin 0.3 mg/dl (0.2-1.3) 11/29/18 04:00 AST 21 U/L (17-59) 11/29/18 04:00 ALT 27 U/L (21-72) 11/29/18 04:00 Alkaline Phosphatase 52 U/L (38-126) 11/29/18 04:00 Troponin I 0.0220 ng/mL (0.00-0.120) 11/29/18 04:00 NT-Pro-B Natriuret Pep 5030 pg/ml (0-900) H 11/29/18 04:00 Total Protein 5.4 G/DL (6.3-8.2) L 11/29/18 04:00 Albumin 2.7 g/dL (3.5-5.0) L D 11/29/18 04:00 Globulin 2.6 gm/dL (2.2-3.9) 11/29/18 04:00 Albumin/Globulin Ratio 1.0 (1.0-2.1) 11/29/18 04:00 Procalcitonin 1.05 NG/ML (0.19-0.49) H 11/29/18 08:55 Arterial Blood Potassium 6.3 mmol/L (3.6-5.2) H* 11/29/18 14:40 Venous Blood Potassium 4.8 mmol/L (3.6-5.2) 11/29/18 04:45 Urine Color Yellow (YELLOW) 11/29/18 06:22 Urine Clarity Slighty-cloudy (Clear) 11/29/18 06:22 Urine pH 5.0 (5.0-8.0) 11/29/18 06:22 Ur Specific [place] 1.016 (1.003-1.030) 11/29/18 06:22 Urine Protein 30 mg/dL (NEGATIVE) 11/29/18 06:22 Urine Glucose (UA) Neg mg/dL (NEGATIVE) 11/29/18 06:22 Urine Ketones Negative mg/dL (NEGATIVE) 11/29/18 06:22 Urine Blood Negative (NEGATIVE) 11/29/18 06:22 Urine Nitrate Negative (NEGATIVE) 11/29/18 06:22 Urine Bilirubin Negative (NEGATIVE) 11/29/18 06:22 Urine Urobilinogen 0.2-1.0 mg/dL (0.2-1.0) 11/29/18 06:22 Ur Leukocyte Esterase Neg Marina/uL (Negative) 11/29/18 06:22 Urine Microscopic WBC 1 /hpf (0-5) 11/29/18 06:22 Ur Squamous Epith Cells < 1 /hpf (0-5) 11/29/18 06:22 Stool Occult Blood Negative (NEGATIVE) 11/29/18 03:55 Influenza Typ A,B (EIA) Negative for flu a/b (NEGATIVE) 11/29/18 04:50 Discharge Exam - Head Exam Head Exam: ATRAUMATIC, NORMAL INSPECTION, NORMOCEPHALIC Discharge Plan - Follow Up Plan Condition: CRITICAL Disposition: WITH WITHOUT AUTOPSY
[2018-11-29 20:38] LABS: HEPATITIS B SURFACE AG Negative (NEGATIVE)
[2018-11-29 20:44] LABS: HEPATITIS A IGM NEGATIVE (NEGATIVE); HEPATITIS B CORE AB NEGATIVE (NEGATIVE)
--- NOTE | 2018-11-29 20:46 | CARD ---
APPROVED REPORT Date of service: 11/29/2018 EKG Measurement Heart [id number] <Conclusion> Normal sinus rhythm Left axis deviation Abnormal ECG
[2018-11-29 20:56] LABS: HEPATITIS C ANTIBODY NEGATIVE (NEGATIVE)
[2018-11-29] MEDS ORDERED: Latanoprost 0.005% Opht SOUTION OD SCH (22:00)
--- NOTE | 2018-11-30 08:32 | CON ---
DATE: 11/29/2018 NEPHROLOGY CONSULTATION HISTORY OF PRESENT ILLNESS: History obtained from record and staff as the patient is intubated at the time of encounter. The patient is an 83-year-old male with a past medical history of hypertension; diabetes; CAD, status post CABG; hyperlipidemia; status post TIA; COPD; status post CVA and CKD stage 3B; brought from [facility] due to respiratory distress, hypotension and altered mental status. Nephrology being consulted for acute renal failure. The patient found to be hypotensive on presentation to the ED with a blood pressure of 88/61 and hypothermic with a temperature of 93.2. The patient was started on sepsis protocol with IV fluid boluses and broad-spectrum antibiotics with vancomycin and Zosyn. The patient received 4.5 L of IV fluid before being sent to ICU. Central line was attempted, but the veins were deemed too tortuous and was not able to be placed in ED. In ICU, the patient had right femoral catheter placed and started on Levophed at 2.5 mcg. The patient was also intubated for airway protection in the setting of tachypnea and severe metabolic acidosis. PAST MEDICAL HISTORY: As above. SOCIAL HISTORY: Unable to obtain other than from record. The patient was a former smoker. FAMILY HISTORY: Unable to obtain. REVIEW OF SYSTEMS: Unable to obtain as the patient is intubated. PHYSICAL EXAMINATION VITAL SIGNS: At the time of encounter, blood pressure 93/47, heart rate 120, respirations 24, temperature 97.4, O2 sat 100% on 60% FiO2 via mechanical ventilation. GENERAL: The patient is intubated, tachypneic, not responding to verbal stimuli. HEENT: No cervical lymphadenopathy. ET tube in place. Right pupil dilated, not responsive to light. Left pupil constricting to light. RESPIRATORY: The patient is tachypneic. Otherwise, lungs are clear. CARDIOVASCULAR: Muffled heart sounds, tachycardic on monitor. No obvious rubs or gallops. ABDOMEN: Soft, nondistended. Tenderness present. GENITOURINARY: Piña in place. Bladder nondistended. EXTREMITIES: No leg edema. SKIN: Warm. No cyanosis. NEUROLOGIC: Not responding to verbal stimuli. Responding to pain. PSYCHIATRIC: Not agitated. LABORATORY DATA: CBC: WBC 32.5, hemoglobin 9.3, hematocrit 30, platelets 200. Chemistry panel: Sodium 141, potassium 5.8, chloride 115, bicarb 8, BUN 225, creatinine 8.4, glucose 229, calcium 6.7. Albumin from earlier in the morning 2.7. Procalcitonin 1.05. UA: 30 mg/dL protein, negative leukocyte esterase, negative blood. Stool for occult blood negative. Chest x-ray directly visualized, showing lungs clear. ASSESSMENT AND PLAN: Acute renal failure, acute kidney injury on chronic kidney disease stage 3B, oligo-anuric renal failure in the setting of septic shock, consistent clinically with acute tubular necrosis; severe metabolic acidosis, both anion gap; hyperkalemia, moderate; very high blood urea nitrogen out of proportion to increased serum creatinine noted. The patient was started on bicarbonate drip with D5W with 150 mEq sodium bicarbonate running at 150 mL/hour. The patient was started on hemodialysis urgently this afternoon, knowing that the patient is at high risk for dialysis dysequilibrium including seizure with extremely high BUN. Orders were put in place to give mannitol at 20-minute, 40-minute and 80-minute meredith; however, the patient became hypotensive within about 10 minutes into dialysis treatment and blood was returned. The patient subsequently suffered cardiac arrest and was unable to be resuscitated. The patient was pronounced at 15:48. Critical care time spent greater than 35 minutes (assessing the patient and discussing with ICU team). Javed Zepeda MD
[2018-11-30] MEDS ORDERED: Epoetin Alfa 4000 UNIT/ML Inj IV SCH (09:00)
== END 2018-11-29 15:38 | DRG 871 ==
LOC: H.ER 03:05 → H.ERHOLD 04:21 → H.ICU/CCU 06:45
PROVIDERS: ADMIT Internal Medicine; ATTEND Internal Medicine
PROC: 5A1935Z Respiratory Ventilation, Less than 24 Consecutive Hours (ICD-10-PCS; principal; 2018-11-29)
PROC: 0BH17EZ Insertion of Endotracheal Airway into Trachea, Via Natural or Artificial Opening (ICD-10-PCS; 2018-11-29)
PROC: 06HY33Z Insertion of Infusion Device into Lower Vein, Percutaneous Approach (ICD-10-PCS; 2018-11-29)
PROC: 3E03329 Introduction of Other Anti-infective into Peripheral Vein, Percutaneous Approach (ICD-10-PCS; 2018-11-29)
PROC: 5A1D70Z Performance of Urinary Filtration, Intermittent, Less than 6 Hours Per Day (ICD-10-PCS; 2018-11-29)
DX: A41.9 Sepsis, unspecified organism (principal); J96.01 Acute respiratory failure with hypoxia; R65.21 Severe sepsis with septic shock; G93.41 Metabolic encephalopathy; N17.0 Acute kidney failure with tubular necrosis; E87.2 Acidosis; I12.9 Hypertensive chronic kidney disease with stage 1 through stage 4 chronic kidney disease, or unspecified chronic kidney disease; N18.3 Chronic kidney disease, stage 3 (moderate); E11.22 Type 2 diabetes mellitus with diabetic chronic kidney disease; E11.65 Type 2 diabetes mellitus with hyperglycemia; D63.8 Anemia in other chronic diseases classified elsewhere; E87.5 Hyperkalemia; I46.9 Cardiac arrest, cause unspecified; I95.3 Hypotension of hemodialysis; J44.9 Chronic obstructive pulmonary disease, unspecified; I25.10 Atherosclerotic heart disease of native coronary artery without angina pectoris; E78.5 Hyperlipidemia, unspecified; E78.00 Pure hypercholesterolemia, unspecified; Z86.73 Personal history of transient ischemic attack (TIA), and cerebral infarction without residual deficits; Z95.1 Presence of aortocoronary bypass graft; Z87.01 Personal history of pneumonia (recurrent); Z87.891 Personal history of nicotine dependence; Z79.4 Long term (current) use of insulin; Z79.82 Long term (current) use of aspirin; Z79.02 Long term (current) use of antithrombotics/antiplatelets